=== PATIENT | male | born 1945 | race Caucasian/White ===

== ENCOUNTER 2019-12-07 14:56 | Observation (INO) | payer OTHER, SELFPAY ==
[2019-12-07] VITALS (8 sets, daily range): BP systolic 73–144; BP diastolic 55–87; PULSE 60–75; RESP 16–20; TEMP 36.4–36.6; O2SAT 96–100; BMI 21.9
--- NOTE | ~2019-12-07 | CT_ITS ---
EXAMINATION: CT brain wo con EXAM DATE: 12/07/2019 15:34 INDICATION: Head injury. TECHNIQUE: Spiral CT of the head was performed without contrast. Axial, coronal and sagittal images were reviewed. The dose-length product (DLP) for this examination was 681.00 mGy-cm. The exposure w as tailored according to patient size, and iterative reconstruction (ASIR) was used as additional dos e reduction technique. Comparison is made to prior examination from 07/29/2019. FINDINGS: There is no acute intraparenchymal hemorrhage. No evidence of intraparenchymal brain mass lesion. No evidence of acute infarction. Please note that initial head CT has limited sensitivity f or small or acute infarctions. There is mild periventricular and subcortical hypodensity, nonspecific but probably related to small vessel ischemic disease. There is prominence of the sulci and ventri cles related to cerebral atrophy. There is intracranial carotid arteriosclerosis. There are no ext ra-axial collections. There is no mass effect or midline shift. Patient has had bilateral ocular le ns surgery. Small left posterior scalp contusion. The visualized sinuses and mastoid air cells are w ell aerated. IMPRESSION: 1. No acute intracranial findings. 2. Chronic age related findings. 3. Small left posterior scalp contusion. Reviewed, dictated and finalized at location A. E STOCKER
--- NOTE | 2019-12-07 15:09 | ED.WEAKNESS ---
HPI - Weakness General Chief complaint: Weakness Stated complaint: ?dehydration Time Seen by Provider: 12/07/19 15:05 Source: patient, family and RN notes reviewed Mode of arrival: other Limitations: no limitations History of Present Illness HPI Narrative: Pt is a 74 y/o male who presents to the ED with c/o generalized weakness that began a few weeks ago after his bladder resection. Pt's surgery was done by Dr. Garcia. Pt has been following up with his PCP and Dr. Garcia. He has another follow up appointment with Dr. Garcia on Friday (12/10/19). Per pt's family, pt has not been eating or drinking regularly. Pt's home nurse believes the pt is dehydrated. Pt states that he cannot eat what he cannot taste. He states that food tastes like a cotton ball. He notes that he can swallow 2-3 bites before he vomits. Pt's daughter states the pt goes back and forth to his recliner and the couch. Pt fell yesterday and hit his head. He landed on his right side. Pt reports ROBLES, but denies a fever. Pt takes ASA 81 mg daily. Complaint: generalized weakness Onset (ago): week(s) (few) Duration: constant Location: generalized Associated symptoms: nausea/vomiting, shortness of breath (on exertion) and other (decreased intake) Related Data Home Medications Medication Instructions Recorded Confirmed carvedilol 25 mg PO BID 08/30/19 12/07/19 gabapentin 300 mg capsule 300 mg PO DAILY cap 08/31/19 12/07/19 aspirin [Aspir-81] 81 mg PO DAILY 09/24/19 12/07/19 furosemide [Lasix] 20 mg PO DAILY@1200 12/07/19 12/07/19 Allergies Allergy/AdvReac Type Severity Reaction Status Date / Time No Known Allergies Allergy Unknown Verified 12/07/19 15:14 Review of Systems Review of Systems: All systems reviewed & are unremarkable except as noted in HPI and below Constitutional: Constitutional: Denies fever(s) and Reports other (decreased intake) Respiratory: Respiratory: Reports dyspnea (on exertion) Gastrointestinal: Gastrointestinal: Reports vomiting Neurologic: Reports weakness (generalized) PMFSH Past Medical History Medical History Bladder mass CHF (congestive heart failure) Depression DVT prophylaxis Essential hypertension H/O subarachnoid hemorrhage Hernia History of lymphoma HTN (hypertension) with goal to be determined Hypertension Hyponatremia Malignant neoplasm of overlapping sites of bladder Postoperative ileus Rib fracture Subarachnoid hemorrhage Tobacco use Surgical History Surgical History (Updated 12/07/19 @ 15:20 by Cece Vega) History of bladder surgery resection S/P robot-assisted surgical procedure Social History Social History Smoking packs per day: 1 Smoking cigarettes per day: 20.0 Years smoked: 19 Smoking pack-years: 19.00 Smoking status: Current every day smoker Tobacco type: cigarettes Second hand tobacco smoke exposure: Yes Alcohol intake: unknown Drinks per week: 35 Substance use: never Gender identity (if verbalized by the patient): Male Spiritual care concerns: No Agree to blood products: Yes Exam Narrative: Exam Narrative: GENERAL: well-nourished, and in no acute distress. HEAD: Normocephalic, posterior scalp hematoma EYES: PERRLA and EOMI, conjunctiva clear without discharge THROAT:Mucous membranes moist, NECK: Supple, without lymphadenopathy or mass RESPIRATORY: No respiratory distress, Airway patent, Respirations non-labored, Clear to auscultation without rales, rhonchi or wheeze HEART: Regular rate and rhythm. No murmur heard. Normal peripheral pulses. ABDOMEN: Soft, nontender, nondistended, normal active bowel sounds. No masses. No rebound or guarding, No organomegaly.right lower abdomen urostomy bag with clear urine EXTREMITIES: No edema, normal strength with full range of motion. SKIN: Warm, dry, normal color without rash NEURO: Alert and oriented x3. CN 2-12 grossly intact. No focal
--- NOTE | 2019-12-07 15:19 | ECG_ITS ---
Measurements Intervals [place] Rate: 61 P: 46 [place]: 185 QRS: -61 QRSD: 173 T: 7 QT: 466 QTc: 470 Interpretive Statements SINUS RHYTHM RIGHT BUNDLE BRANCH BLOCK LEFT ANTERIOR FASCICULAR BLOCK VOLTAGE CRITERIA FOR LVH ABNORMAL ECG Electronically Signed On 12-07-2019 16:07:25 BEVELING MACHINE OPERATOR by Ronen Damico D.O.
[2019-12-07] MEDS: LACTATED RINGERS 1,000 ML 999 ML IV CONT ×2 (15:42→16:49)
[2019-12-07 15:59] LABS: Basophils Percent Auto 0.5 % (0.2-1.2); Eosinophils Absolute Auto 0.1 K/mm3 (0-0.3); Eosinophils Percent Auto 1.2 % (0-4.4); Hematocrit 34.9 % (42.0-52.0); Hemoglobin 11.8 g/dL (14.0-18.0); Immature Granulocyte Absolute 0.07 K/mm3 (0.00-0.031); Immature Granulocyte Percent A 0.9 % (0-0.5); Lymphocytes Absolute Auto 0.65 K/mm3 (0.9-3.2); Lymphocytes Percent Auto 7.9 % (18.3-44.2); Mean Corpuscular HGB Conc 33.8 g/dl (32-36); Mean Corpuscular Hemoglobin 31.7 pg (26-34); Mean Corpuscular Volume 93.8 fl (80-100); Mean Platelet Volume 9.7 fl (7.4-10.4); Monocytes Absolute Auto 0.6 K/mm3 (0.1-0.6); Monocytes Percent Auto 7.8 % (2.6-8.5); Neutrophils Absolute Auto 6.7 K/mm3 (1.3-6.7); Neutrophils Percent Auto 81.7 % (45.5-73.1); Platelet Count Result 309 k/mm3 (150-375); Red Blood Count 3.72 M/mm3 (4.6-6.20); Red Cell Distribution Width 14.1 % (11.5-14.5); White Blood Count 8.2 K/mm3 (4.5-10.0)
[2019-12-07 16:01] LABS: Alanine Aminotransferase 17 U/L (4-50); Albumin Level 2.9 g/dL (3.5-5.1); Alkaline Phosphatase 75 U/L (38-126); Aspartate Amino Transferase 22 U/L (17-59); Bilirubin,Total 0.4 mg/dL (0.2-1.3); Blood Urea Nitrogen 23 mg/dL (9-20); Calcium 8.7 mg/dL (8.4-10.2); Carbon Dioxide 23 mmol/L (22-30); Chloride 90 mmol/L (98-107); Estimated CRCL calculation 46 ml/min; Estimated Glomerular Filt Rate 46; Glucose 134 mg/dL (75-110); Magnesium 2.1 mg/dL (1.6-2.3); Potassium 4.3 mmol/L (3.4-5.0); Sodium 127 mmol/L (137-145)
[2019-12-07 16:06] LABS: INR 0.9; Prothrombin Time 12.3 Seconds (11.1-14.7)
[2019-12-07 16:07] LABS: Partial Thromboplastin Time 29.6 SECONDS (22.3-36.8)
--- NOTE | 2019-12-07 16:29 | PC.NURSE ---
Pt states he has had several falls over the last few weeks. Pt states he has had brain bleed a few months ago. Pt states he has had staggering with walking periodically. Pt states 10/07 had prostate removed. Pt states he has had general weakness and dizziness over last two weeks.
--- NOTE | 2019-12-07 18:58 | ADMGEN ---
This patient, Duane Mayo, was admitted to Medical Room 253-01. Patient/family oriented to hospital policies and general routines including ID bracelet, bed and alarms, visiting hours, pain management, procedures, bathroom and other care routines, personal items, smoking policy, room service/diet, and visiting hours. Valuables list has been completed. Information on how to activate the Rapid Response Team has been discussed. Patient/Family are encouraged to report perceived risks to care and to ask questions if they do not understand what they are told or what they should do.
[2019-12-07] MEDS: SODIUM CHLORIDE 0.9% IV 1,000 ML 125 ML IV CONT (19:19)
[2019-12-07] MEDS: PANTOPRAZOLE SODIUM IV 40 MG VIAL IV PUSH (19:20)
[2019-12-08] VITALS (12 sets, daily range): BP systolic 105–143; BP diastolic 72–85; PULSE 66–82; RESP 16–20; TEMP 36.4–37.2; O2SAT 96–99; BMI 21.9
[2019-12-08] MEDS: SODIUM CHLORIDE 0.9% IV 1,000 ML 125 ML IV CONT ×3 (03:56→22:52)
[2019-12-08 05:50] LABS: Alanine Aminotransferase 15 U/L (4-50); Albumin Level 2.3 g/dL (3.5-5.1); Alkaline Phosphatase 68 U/L (38-126); Aspartate Amino Transferase 21 U/L (17-59); Bilirubin,Total 0.3 mg/dL (0.2-1.3); Blood Urea Nitrogen 19 mg/dL (9-20); Calcium 7.9 mg/dL (8.4-10.2); Carbon Dioxide 21 mmol/L (22-30); Chloride 98 mmol/L (98-107); Estimated CRCL calculation 58 ml/min; Estimated Glomerular Filt Rate 59; Glucose 92 mg/dL (75-110); Potassium 4.1 mmol/L (3.4-5.0); Sodium 127 mmol/L (137-145)
[2019-12-08 06:02] LABS: Basophils Percent Auto 0.5 % (0.2-1.2); Eosinophils Absolute Auto 0.2 K/mm3 (0-0.3); Eosinophils Percent Auto 2.6 % (0-4.4); Hematocrit 28.4 % (42.0-52.0); Hemoglobin 9.9 g/dL (14.0-18.0); Immature Granulocyte Absolute 0.07 K/mm3 (0.00-0.031); Immature Granulocyte Percent A 1.1 % (0-0.5); Lymphocytes Absolute Auto 1.12 K/mm3 (0.9-3.2); Lymphocytes Percent Auto 17.2 % (18.3-44.2); Mean Corpuscular HGB Conc 34.9 g/dl (32-36); Mean Corpuscular Hemoglobin 31.6 pg (26-34); Mean Corpuscular Volume 90.7 fl (80-100); Mean Platelet Volume 9.7 fl (7.4-10.4); Monocytes Absolute Auto 0.9 K/mm3 (0.1-0.6); Monocytes Percent Auto 13.2 % (2.6-8.5); Neutrophils Absolute Auto 4.3 K/mm3 (1.3-6.7); Neutrophils Percent Auto 65.4 % (45.5-73.1); Platelet Count Result 273 k/mm3 (150-375); Red Blood Count 3.13 M/mm3 (4.6-6.20); Red Cell Distribution Width 14.1 % (11.5-14.5); White Blood Count 6.5 K/mm3 (4.5-10.0)
[2019-12-08] MEDS: PANTOPRAZOLE SODIUM IV 40 MG VIAL IV PUSH (08:14)
--- NOTE | 2019-12-08 13:28 | PC.NURSE ---
Talked to Dr. Diez about home medications not being restarted. She stated she would take a look at them. Also received orders for PT/OT.
--- NOTE | 2019-12-08 15:34 | PC.NURSE ---
On 12/08/19, the superintendent marine Chalo Carty, provided care and completed [facility] documentation on this patient. I have reviewed the student's documentation and agree with the findings.
[2019-12-08] MEDS: carvediloL 25 MG TABLET PO (16:38)
[2019-12-08] MEDS: SACUBITRIL/VALSARTAN 49-51 MG TABLET 1 TABLET PO (20:59)
[2019-12-09] VITALS (8 sets, daily range): BP systolic 108–136; BP diastolic 70–80; PULSE 54–72; RESP 16; TEMP 36.4; O2SAT 98
--- NOTE | 2019-12-09 06:18 | HP_ITS ---
DATE OF SERVICE: 12/08/2019 REASON FOR ADMISSION: Patient admitted with weakness and dehydration. HISTORY OF PRESENT ILLNESS: This 74-year-old male recently had a bladder resection for invasive bladder cancer under Dr. Garcia' robotic surgery. The patient was seen by primary care and had his Lasix decreased. The patient was complaining of dizziness on standing. The patient has a history of congestive heart failure, lymphoma, invasive bladder cancer, hypertension. The patient states he has been unwell with poor appetite for months, eating Ensure and ice cream, not been eating much recently in the past few days. Friday, Friday completely fasting. Patient notes when he stood up he felt dizzy suddenly. The patient denies any abdominal pain, vomiting, diarrhea, any fever or cough. The patient states he feels nauseated and has lost his appetite. Patient had gone to his primary care doctor, Dr. Brooks, recently for a followup after his robotic surgery and bladder resection. The patient was advised to cut back to half his Lasix dosing. PAST MEDICAL HISTORY: Bladder mass with invasive bladder cancer, congestive heart failure, depression, hypertension, subarachnoid hemorrhage, lymphoma, hyponatremia, postoperative ileus, rib fractures, subarachnoid hemorrhage, and tobacco use. REVIEW OF SYSTEMS: Patient looks quite depressed. The patient looks dry, weak malaise, tired, generally weak. The patient also has some dizziness on standing. All other systems are negative apart from those documented in HPI. PAST SURGICAL HISTORY: Patient has a history of bladder surgery resection, robotic surgery. SOCIAL HISTORY: Patient lives in [place], has 3 children who visit seldom. The patient is a smoker, 1 pack a day. Patient drinks occasionally. The patient appears somewhat depressed. The patient is a full code. FAMILY HISTORY: Mother had emphysema and stroke. Father had COPD. MEDICATIONS ON ADMISSION: Patient is on Lasix 20 p.o. daily, aspirin 81 p.o. daily, Coreg 25 p.o. b.i.d., duloxetine 60 p.o. daily, gabapentin 300 p.o. daily, Crestor 49/51 one tablet p.o. b.i.d., and senna 8.6 mg p.o. daily. ALLERGIES: THE PATIENT HAS NO KNOWN ALLERGIES. PHYSICAL EXAMINATION: VITAL SIGNS: Temperature is 36.5, pulse 69, respirations 16, blood pressure 143/85, heart rate 69. GENERAL: Patient is an elderly man, thin-appearing, dry-appearing. HEENT: Head, patient has a posterior hematoma. Eyes are PERRLA. Tongue is dry. NECK: Supple. RESPIRATIONS: The patient has no wheeze heard. HEART: Sounds are normal rate and rhythm. ABDOMEN: Soft, nontender. EXTREMITIES: Patient is able to move all his limbs, but is very weak and tired appearing. SKIN: Dry. NEUROLOGICAL: Alert and oriented, holding conversation. No focal deficits. PSYCHIATRIC: The patient appears depressed. LABORATORY DATA: Hemoglobin and hematocrit 11.8 and 34.9, white cell 8.2, platelets 309. Sodium 127, potassium 4.3, BUN 23, creatinine 1.5, glucose 134. IMAGING: CT shows a left posterior scalp contusion, but no intracranial findings. EKG shows normal sinus rhythm with right bundle branch and left axis deviation. ASSESSMENT AND PLAN: 1. Orthostatic hypotension. 2. Dehydration and weakness. 3. Hyponatremia. 4. History of lymphoma. 5. History of invasive bladder cancer with recent resection. 6. Weight loss and loss of appetite. 7. Tobacco abuse. PLAN: Continue IV hydration. Hold Lasix. Continue Crestor and Coreg. Start IV Zofran, IV Protonix. Order orthostatic blood pressures on the patient. Patient to also have physical therapy while in the hospital. I have ordered Megace for the patient as I feel that the patient is not eating due to lack of appetite and may be s
[2019-12-09] MEDS: SODIUM CHLORIDE 0.9% IV 1,000 ML 125 ML IV CONT (06:38)
[2019-12-09] MEDS: ASPIRIN 81 MG ENTERIC TABLET PO (09:53)
[2019-12-09] MEDS: PANTOPRAZOLE SODIUM IV 40 MG VIAL IV PUSH (09:54)
[2019-12-09] MEDS: GABAPENTIN 300 MG CAPSULE PO (09:54)
[2019-12-09] MEDS: DULOXETINE 60 MG CAPSULE.DR PO (09:54)
[2019-12-09] MEDS: SACUBITRIL/VALSARTAN 49-51 MG TABLET 1 TABLET PO (09:54)
[2019-12-09] MEDS: MEGESTROL ACETATE (*CHEMO) 20 MG TABLET PO (09:54)
[2019-12-09] MEDS: carvediloL 25 MG TABLET PO (09:57)
--- NOTE | 2019-12-09 11:29 | PM.DS ---
DS: Diagnosis Discharge Diagnosis (1) Orthostatic hypotension: Code(s): I95.1 - Orthostatic hypotension Status: Resolved Assessment and Plan: 4-year-old male recently had a bladder resection for invasive bladder cancer under Dr. Garcia' robotic surgery. The patient was seen by primary care and had his Lasix decreased. The patient was complaining of dizziness on standing. The patient has a history of congestive heart failure, lymphoma, invasive bladder cancer, hypertension. Pt was hydrated with iv fluids. Orthostatics were corrected in hospital. Lasix was completely stopped. (2) Acute dehydration: Code(s): E86.0 - Dehydration Status: Resolved (3) CHF (congestive heart failure): Qualifiers: Heart failure type: systolic Heart failure chronicity: chronic Qualified Code(s): I50.22 - Chronic systolic (congestive) heart failure Code(s): I50.9 - Heart failure, unspecified Status: Chronic Assessment and Plan: Chronic and stable pt restarted on all the home medications, lasix was stopped on discharge. Pt to follow with his PCP on discharge. (4) Malignant neoplasm of overlapping sites of bladder: Code(s): C67.8 - Malignant neoplasm of overlapping sites of bladder Status: Resolved Assessment and Plan: Pt had recent robotic assisted bladder resection for invasive bladder cancer, feels depressed after this not been eating or drinking much at home. Megace was started in the hospital. (5) HTN (hypertension) with goal to be determined: Code(s): I10 - Essential (primary) hypertension Status: Chronic Assessment and Plan: Pt restated on his home medications (6) Depression: Qualifiers: Depression Type: major depressive disorder Major depression recurrence: unspecified whether recurrent Active/Remission status: remission status unspecified Qualified Code(s): F32.9 - Major depressive disorder, single episode, unspecified Code(s): F32.9 - Major depressive disorder, single episode, unspecified Status: Chronic Assessment and Plan: Pt had recent robotic assisted bladder resection for invasive blader cancer, feels depressed after this not been eating or drinking much. I have started megace for him. (7) Tobacco use: Code(s): Z72.0 - Tobacco use Status: Acute Assessment and Plan: Adviced to quit smoking. Pt smokes one pack a day. Pt yet to decide about quitting. DS: Summary Time Spent with Patient Time attestation: Total time spent providing and/or coordinating discharge services:40 minutes on day of discharge Exam Narrative: Exam Narrative: GENERAL: Patient is an elderly man, thin-appearing. HEENT: Head, patient has a posterior hematoma. Eyes are PERRLA. Tongue is moist now. NECK: Supple. RESPIRATIONS: The patient has no wheeze heard. HEART: Sounds are normal rate and rhythm. ABDOMEN: Soft, nontender. EXTREMITIES: Patient is able to move all his limbs, but is very weak and tired appearing. SKIN: Dry. NEUROLOGICAL: Alert and oriented, holding conversation. No focal deficits. PSYCHIATRIC: The patient appears depressed. Discharge Plan Discharge Attending physician on discharge: Angelina Diez Discharging Clinician: Angelina Diez Anticipated Discharge Date/Time: 12/09/19 11:43 Patient Disposition: Home, Self-Care Activity: as tolerated Diet: heart healthy Patient Instructions: Antibiotic Form, How to Stop Smoking (DC) Stand Alone Forms: General Discharge Information Follow-up/Referrals: Jamey Brooks MD [Primary Care Provider] - Discharge Medications: New megestrol 20 mg Tablet 20 mg PO QAM Qty: 30 RF: 0 Continued sacubitril-valsartan 49-51 mg tablet 1 tablet PO BID Qty: 180 RF: 1 sennosides [senna] 8.6 mg tablet 8.6 mg PO DAILY Qty: 1 RF: 0 duloxetine 60 mg capsule,delayed release(DR/EC) 60 mg PO DAILY Qty: 90 RF:
== END 2019-12-09 14:09 | disposition home health service (06) ==
LOC: ANHED 15:30 → ANH2MED 17:11
PROVIDERS: Admitting Provider Internal Medicine; Emergency Provider General Practice; PCP Internal Medicine; Visit Provider Family Medicine
DX: E86.0 Dehydration (principal); I95.1 Orthostatic hypotension; E87.1 Hypo-osmolality and hyponatremia; I11.0 Hypertensive heart disease with heart failure; I50.22 Chronic systolic (congestive) heart failure; C67.8 Malignant neoplasm of overlapping sites of bladder; F32.9 Major depressive disorder, single episode, unspecified; F17.210 Nicotine dependence, cigarettes, uncomplicated; R63.4 Abnormal weight loss; Z68.21 Body mass index [BMI] 21.0-21.9, adult; R63.0 Anorexia; Z79.899 Other long term (current) drug therapy; Z85.72 Personal history of non-Hodgkin lymphomas
CPT/HCPCS: 36415; 70450; 80053; 83735; 85025; 85610; 85730; 93005; 96361; 96374; 96376; 97162; 97165; 99291; A9270; C9113; G0378; J7030; J7120

== ENCOUNTER 2019-12-26 21:45 | Inpatient (IN) | payer OTHER, SELFPAY ==
--- NOTE | ~2019-12-26 | CT_ITS ---
EXAMINATION: CT abdomen pelvis w con DATE: 12/26/2019 23:02 INDICATION: Nausea, vomiting, diarrhea TECHNIQUE: Computed tomography (CT) of the abdomen and pelvis was performed with 100 cc Omnipaque 350 intravenous contrast. Automated exposure control and iterative reconstruction technique were employe d. Exam dose: 479.47 mGy-cm total exam DLP. COMPARISON: 09/17/2019 CT abdomen pelvis FINDINGS: The lung bases are clear. Normal heart size. No pericardial or pleural effusion. There are multiple hepatic cysts including almost 10 cm cyst of the left hepatic lobe. There are bilateral renal cysts, the largest approximately 2.7 cm, on the left. Bilateral renal scarr ing is noted. Normal splenic size. No solid space-occupying mass lesion of the liver, spleen, pancreas, adrenal gla nds or kidneys is evident. The gallbladder is present and appears unremarkable. No bile duct or pancr eatic duct dilatation. There is atherosclerotic calcification of the abdominal and aorta and iliac and femoral arteries but no aneurysm. No intraperitoneal or retroperitoneal or pelvic mass lesion or adenopathy or ascites. There is small bowel dilatation up to 5.1 cm and numerous small bowel air-fluid levels consistent wit h small bowel obstruction in the region of the urostomy site, possibly due to internal hernia or volv ulus in the medial right mid abdomen. Distal small bowel is decompressed. There is cystectomy and prostatectomy. There is minimal pelvic free fluid. Small sliding hiatal hernia or distal esophageal wall thickening; consider upper gastrointestinal ser ies as clinically appropriate. Healing anterior sixth and seventh right rib fractures There is patchy sclerosis of L2 vertebral body which may be due to metastatic disease; Paget's diseas e is considered less likely due to absence of cortical thickening. Mixed lytic and sclerotic changes of the right iliac bone noted; differential diagnosis includes meta static disease and Paget's disease. IMPRESSION: Small bowel obstruction Status post cystectomy and prostatectomy Hepatic and renal cysts Reviewed, dictated and finalized at Location [facility]. Reviewed, dictated and finalized at location B.
--- NOTE | ~2019-12-26 | XR_ITS ---
XR abdomen/kub 1V DATE: 12/29/2019 05:51 INDICATION: Small bowel obstruction TECHNIQUE: Portable supine AP views on 12/29/2019 at 0544 hours COMPARISON: 12/28/2019 upper gastrointestinal water soluble series with small bowel follow-through FINDINGS: Radiopaque contrast material is noted in the colon and rectum. There is persistent small kenn wel gaseous dilatation. No intraperitoneal free air is evident. IMPRESSION: Persistent abnormal gaseous dilatation of the small bowel suggesting partial small bowel obstruction Reviewed, dictated and finalized at Location [facility]. Reviewed, dictated and finalized at location A. IMPRESSION: Persistent abnormal gaseous dilatation of the small bowel suggestin g partial small bowel obstruction
--- NOTE | ~2019-12-26 | XR_ITS ---
XR abdomen/kub 1V 12/28/2019 06:00 Indication: Small bowel obstruction Procedure: KUB Comparison: 12/27/2019 Findings: NG tube in the stomach. Dilated small bowel is seen throughout the abdomen. There is modera te gas in the colon. No abnormal calcifications. Impression: 1: Large amount of gas throughout the small bowel and colon which may represent partial obstruction o r ileus. Reviewed, dictated and finalized at location A. Impression: 1: Large amount of gas throughout the small bowel and colon which may represent partial obstruction or ileus.
--- NOTE | ~2019-12-26 | XR_ITS ---
XR abdomen/kub 1V DATE: 12/30/2019 06:19 INDICATION: Small bowel obstruction TECHNIQUE: Portable supine AP views on 12/30/2019 at 0535 hours COMPARISON: 12/25/2019 KUB FINDINGS: There is diminished contrast material in the rectum and colon since 12/29/2019. There is per sistent gaseous distention of the small bowel. The psoas shadows are intact. No visceromegaly is evid ent. IMPRESSION: Persistent small bowel gaseous distention suggesting small bowel obstruction Reviewed, dictated and finalized at Location [facility]. Reviewed, dictated and finalized at location A. IMPRESSION: Persistent small bowel gaseous distention suggesting small bowel ob struction
--- NOTE | ~2019-12-26 | XR_ITS ---
XR abdomen/kub 1V 12/27/2019 08:03 Indication: Small bowel obstruction versus ileus Procedure: KUB Comparison: Comparison to multiple prior studies sequentially, with oldest reviewed study dated 09/20. Findings: There are multiple dilated small bowel loops throughout the abdomen. The colon is relativel y decompressed. There is residual contrast in the right renal collecting system. There is an ostomy o verlying the right mid abdomen. NG tube in the stomach. Impression: 1: Dilated small bowel compatible with small bowel obstruction. Reviewed, dictated and finalized at location A. Impression: 1: Dilated small bowel compatible with small bowel obstruction.
--- NOTE | ~2019-12-26 | XR_ITS ---
EXAMINATION: XR abdomen NG/feed tube rechec EXAM DATE: 12/27/2019 17:46 INDICATION: Feeding tube placement. TECHNIQUE: Frontal projection(s) of the abdomen for interpretation. Comparison is made to prior exami nation from earlier same date. FINDINGS: Feeding tube has been advanced, now has some tortuosity along the esophagus and mild kinki ng distally. Stomach is likely decompressed. IMPRESSION: 1. Feeding tube under some tension, with mild kinking, tip and side-port both likely within decompres sed stomach. 2. Mesenteric volvulus, closed loop obstruction. Reviewed, dictated and finalized at location A. IMPRESSION: 1. Feeding tube under some tension, with mild kinking, tip and side-port both l ikely within decompressed stomach. 2. Mesenteric volvulus, closed loop obstruction.
--- NOTE | ~2019-12-26 | XR_ITS ---
XR abdomen NG/feed tube insert INDICATION: Evaluate NG tube position. TECHNIQUE: Limited KUB perform for evaluating NG tube . COMPARISON: Comparison to multiple prior studies sequentially, with oldest reviewed study dated 09/19. FINDINGS: NG tube tip in the stomach. Visualized bowel gas pattern is nonspecific with large amount of gas in the small bowel and colon in the upper abdomen.. IMPRESSION: 1: NG tube tip in the stomach. Reviewed, dictated and finalized at location A.
--- NOTE | ~2019-12-26 | XR_ITS ---
UGI-AIR CONTRAST/SMALL BOWEL INDICATION: Small bowel obstruction TECHNIQUE: Serial images of the upper GI tract structures and small bowel are performed following NG tube administration of water-soluble contrast. COMPARISON: CT dated 12/26/2019 FINDINGS: Contrast flowed readily into the stomach via NG tube. Gastric contour, mucosa and motility are normal. The duodenal bulb fills and empties regularly and has a normal mucosal pattern. The duo denal sweep is in normal position. There are multiple dilated loops of small bowel with thickening of small bowel mucosal folds in the proximal small bowel. There is transit time to the colon of less th an 1 1/2 hours. There is decompression of the distal small bowel at the ileocecal junction. The more proximal small bowel is dilated. IMPRESSION: 1: Dilated small bowel with decompressed distal small bowel. Normal transit time to the colon of less than 1 hour 30 minutes. Differential diagnosis includes partial obstruction and ileus. No definite t ransition point is identified. Reviewed, dictated and finalized at location A. IMPRESSION: 1: Dilated small bowel with decompressed distal small bowel. Normal transit fern e to the colon of less than 1 hour 30 minutes. Differential diagnosis includes partial obstruction and ileus. No definite transition point is identified.
[2019-12-26 22:04] VITALS: BP 115/89; PULSE 107; RESP 20; TEMP 36.4; O2SAT 96
--- NOTE | 2019-12-26 22:12 | ECG_ITS ---
Measurements Intervals [place] Rate: 98 P: 56 [place]: 183 QRS: -76 QRSD: 173 T: 33 QT: 409 QTc: 524 Interpretive Statements SINUS RHYTHM RIGHT BUNDLE BRANCH BLOCK LEFT ANTERIOR FASCICULAR BLOCK VOLTAGE CRITERIA FOR LVH ABNORMAL ECG Electronically Signed On 12-27-2019 7:07:26 CDT by Ronen Damico D.O.
--- NOTE | 2019-12-26 22:26 | ED.GENADULT ---
HPI - General Adult General Chief complaint: Abdominal Pain Stated complaint: n/v Time Seen by Provider: 12/26/19 22:11 Source: patient and family Mode of arrival: wheelchair Limitations: no limitations History of Present Illness HPI narrative: Patient presented to the emergency department for evaluation of abdominal pain, vomiting and weakness. Patient reports that since his bladder removal surgery a couple weeks ago in this hospital, he has had minimal oral intake since being at home, has experienced a lot of weakness and difficulty ambulating. Patient denies any focal numbness, reports he feels weak all over. His daughter reports that he is not laying in bed up to 23 hours a day with very little independent ambulation. Patient reports waves of colicky abdominal pain that come and go. He denies fever, cough, no shortness of breath or chest pain. He reports that he had a bowel movement today, no diarrhea. He reports that his urostomy bag has been draining appropriately without blood. Per family, patient was not referred to any specific oncologist, Dr. Garcia had stated that the patient may want to consult with oncology, but at this point he is on any chemotherapy or radiation treatment. Related Data Home Medications Medication Instructions Recorded Confirmed carvedilol 25 mg PO BID 08/30/19 12/07/19 gabapentin 300 mg capsule 300 mg PO DAILY cap 08/31/19 12/07/19 aspirin [Aspir-81] 81 mg PO DAILY 09/24/19 12/07/19 Allergies Allergy/AdvReac Type Severity Reaction Status Date / Time No Known Allergies Allergy Unknown Verified 12/07/19 15:14 Review of Systems Review of Systems: Narrative: CONSTITUTIONAL: Denies fever, chills, or sweats. ENT: Denies rhinorrhea, congestion, sore throat, or otalgia. CARDIOVASCULAR: Denies chest pain, palpitations, or edema. RESPIRATORY: Denies cough or dyspnea. GASTROINTESTINAL: Reports abdominal pain, nausea, vomiting, denies diarrhea GENITOURINARY: Denies dysuria or hematuria. SKIN: Denies rash or itching. MUSCULOSKELETAL: Denies back pain, joint pain, or myalgia. NEUROLOGIC: Denies headache, numbness, reports feeling weak PMFSH Past Medical History Medical History Bladder mass CHF (congestive heart failure) Depression DVT prophylaxis Essential hypertension H/O subarachnoid hemorrhage Hernia History of lymphoma HTN (hypertension) with goal to be determined Hypertension Hyponatremia Malignant neoplasm of overlapping sites of bladder Postoperative ileus Rib fracture Subarachnoid hemorrhage Tobacco use Surgical History Surgical History History of bladder surgery resection S/P robot-assisted surgical procedure Family History Family History Father Family history of malignant neoplasm Patient's father is Mother Family history of malignant neoplasm Patient's mother is Social History Social History Smoking packs per day: 1 Smoking cigarettes per day: 20.0 Years smoked: 19 Smoking pack-years: 19.00 Smoking status: Current every day smoker Tobacco type: cigarettes Second hand tobacco smoke exposure: Yes Alcohol intake: unknown Drinks per week: 35 Substance use: never Gender identity (if verbalized by the patient): Male Spiritual care concerns: No Agree to blood products: Yes Exam Narrative: Exam Narrative: GENERAL: Awake, alert, conversant, thin HEAD: Normocephalic, atraumatic. EYES: PERRLA and EOMI. ENT: Nares clear, no rhinorrhea or epistaxis. Mucous membranes dry NECK: Supple. CHEST: Clear to auscultation. No respiratory distress. HEART: Mildly tachycardic rate and regular rhythm. No murmur heard. Normal peripheral pulses. ABDOMEN: Urostomy in place, draining yellow urine. Soft, nontender, nondistended, normal active bowel sounds.
[2019-12-26 22:42] LABS: Basophils Percent Auto 0.4 % (0.2-1.2); Eosinophils Absolute Auto 0.1 K/mm3 (0-0.3); Eosinophils Percent Auto 1.2 % (0-4.4); Hematocrit 39.7 % (42.0-52.0); Hemoglobin 13.1 g/dL (14.0-18.0); Immature Granulocyte Absolute 0.06 K/mm3 (0.00-0.031); Immature Granulocyte Percent A 0.6 % (0-0.5); Lymphocytes Percent Auto 16.5 % (18.3-44.2); Mean Corpuscular Hemoglobin 30.2 pg (26-34); Mean Corpuscular Volume 91.5 fl (80-100); Mean Platelet Volume 9.2 fl (7.4-10.4); Monocytes Absolute Auto 0.6 K/mm3 (0.1-0.6); Monocytes Percent Auto 6.1 % (2.6-8.5); Neutrophils Absolute Auto 7.3 K/mm3 (1.3-6.7); Neutrophils Percent Auto 75.2 % (45.5-73.1); Platelet Count Result 572 k/mm3 (150-375); Red Blood Count 4.34 M/mm3 (4.6-6.20); Red Cell Distribution Width 14.6 % (11.5-14.5); White Blood Count 9.7 K/mm3 (4.5-10.0)
[2019-12-26 22:48] LABS: Add Urine Microscopic? YES; Appearance Urine Cloudy (Clear); Bacteria Urine 4+ /hpf; Bilirubin Urine 2+ (Negative); Blood Urine Negative (Negative); Color Urine Amber (Yellow); Glucose Urine UA Negative (Negative); Ketones Urine Trace mg/dL (Negative); Leukocyte Esterase Ur 2+ LEU/UL (Negative); Mucus Urine Few /lpf; Nitrate Urine Negative (Negative); Protein Urine 2+ mg/dL (Negative); Specific Grav Ur 1.018 (1.001-1.035); Squamous Epithelial Cell Urine Few /hpf (Few); WBC Clumps Urine Present /HPF; WBC Urine >75 /hpf
[2019-12-26 22:52] LABS: INR 0.9; Partial Thromboplastin Time 27.8 SECONDS (22.3-36.8); Prothrombin Time 12.2 Seconds (11.1-14.7)
[2019-12-26 22:53] LABS: Alanine Aminotransferase 21 U/L (4-50); Albumin Level 4.1 g/dL (3.5-5.1); Alkaline Phosphatase 95 U/L (38-126); Aspartate Amino Transferase 22 U/L (17-59); Bilirubin,Total 0.4 mg/dL (0.2-1.3); Blood Urea Nitrogen 28 mg/dL (9-20); Calcium 10.6 mg/dL (8.4-10.2); Carbon Dioxide 21 mmol/L (22-30); Chloride 103 mmol/L (98-107); Estimated Glomerular Filt Rate 31; Glucose 200 mg/dL (75-110); Potassium 5.1 mmol/L (3.4-5.0); Sodium 135 mmol/L (137-145)
[2019-12-26 22:55] LABS: Estimated Glomerular Filt Rate 31
[2019-12-26] MEDS: SODIUM CHLORIDE 0.9% IV 1,000 ML 999 ML IV CONT ×2 (22:58)
[2019-12-26] MEDS: ONDANSETRON INJ 4 MG/2 ML VIAL IV PUSH (22:58)
[2019-12-26 23:05] LABS: Troponin I 0.031 ng/mL (0.000-0.034)
[2019-12-27] VITALS (7 sets, daily range): BP systolic 113–196; BP diastolic 83–96; PULSE 97–108; RESP 16–20; TEMP 36.4–37; O2SAT 95–98; BMI 21.2
[2019-12-27] MEDS: SODIUM CHLORIDE 0.9% IV 1,000 ML 150 ML IV CONT (01:00)
--- NOTE | 2019-12-27 01:31 | ADMGEN ---
This patient, Duane Mayo, was admitted to [facility] Surg Room 332-01. Patient/family oriented to hospital policies and general routines including ID bracelet, bed and alarms, visiting hours, pain management, procedures, bathroom and other care routines, personal items, smoking policy, room service/diet, and visiting hours. Valuables list has been completed. Information on how to activate the Rapid Response Team has been discussed. Patient/Family are encouraged to report perceived risks to care and to ask questions if they do not understand what they are told or what they should do.
--- NOTE | 2019-12-27 04:05 | PM.IMHP ---
H&P: HPI History of Present Illness Chief complaint: Generalized weakness, vomiting Narrative: Date and time of patient contact: 12/27/2019 at 3:30 a.m. Duane Mayo is a loquacious 74 year old male with a past medical history of lymphoma in remission, bladder cancer status post complete cystectomy, and chronic protein calorie malnutrition who presented to the ER from home due to generalized weakness and vomiting. The patient had complete bladder resection/cystectomy September 2019. Ever since his bladder surgery he has had minimal oral intake. He has not had a good appetite since he had lymphoma in 2018. But since his surgery his appetite has continued to decline. He reports that he is usually independent in activities of daily living but over the last 3 or 4 days has become so weak that he cannot get out of bed on his own. He had had a day of vomiting last . The vomiting had seemed to resolve. Then he started vomiting again on Friday evening. The vomiting usually accompanied by colicky abdominal pain. The pain is a 7/10 in intensity at its worst. It is aggravated after having oral intake. Vomiting seems to briefly relieve his pain. Pain seems start in the lower abdomen work its way up towards his urostomy and epigastric area. He has had a chronically poor appetite since his lymphoma diagnosis in 2017. He has been trying to stay hydrated with in sugar and chocolate milk. He reports that food does not taste right. His last bowel movement was on Friday and was normally formed. His urostomy has been draining appropriately. He has been lying in bed for 23 hours a day for the last 2-3 days. He has been getting progressively weaker and is just generally weak all over. He is chronically chilled and keeps the thermostat in his house to 78?. He denies any fevers. The patient has not followed up with Oncology after his bladder resection. He did have 3 lymph nodes that were positive out of 20. Dr. Garcia at told the patient that he he may want to consult with Oncology. However the patient and his family do not feel that the patient would tolerate chemotherapy at this time and half not been referred to a specific oncologist. Review of Systems Review of Systems: Narrative: Except as documented in the HPI, all other systems were reviewed and are negative. PMFSH Past Medical History Medical History Abnormal bone scan of cervical spine CT suggest hemangioma bone scan suggest Paget's disease Abnormal bone scan of lumbar spine 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 CHF (congestive heart failure) Depression Essential hypertension H/O subarachnoid hemorrhage Hearing loss Hernia History of lymphoma Diagnosed in 2018 now in remission Hypertension Hyponatremia 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 Postoperative ileus after bladdder resection Rib fracture September 2019 Tobacco use Surgical History Surgical History (Updated 12/27/19 @ 04:49 by Gisela Benoit DO) H/O total cystectomy robotic assisted bladder resection History of bilateral cataract extraction History of bilateral inguinal hernia repair History of bladder surgery resection History of prostatectomy Hx of tonsillectomy S/P robot-assisted surgical procedure Family History Family History (Updated 12/27/19 @ 04:49 by Gisela Benoit DO) Father Patient's father is Chronic obstructive pulmonary disease Mother Patient's mother is Cerebrovascular accident Hypercholesterolemia Sibling Epiglottitis Social History Social History (Updated 12/27/19 @ 05:16 by Gisela Benoit DO) Social History: Primary care physician: Dr. Jamey Brooks Code status: DNR per patient request Smoking packs per day: 1 Smoking cigarettes per day: 20.0 Years smoked: 19 Smoking pack-years: 19.00 Smoking
--- NOTE | 2019-12-27 08:15 | PM.CNGS ---
Assessment and Plan Assessment and plan (1) SBO (small bowel obstruction): Code(s): K56.609 - Unspecified intestinal obstruction, unspecified as to partial versus complete obstruction Status: Acute Assessment and Plan: seems improved after just a few hours of nasogastric suction. I will recheck his KUB this morning. Continue IV fluid resuscitation due to dehydration and acute kidney injury. If continues to improve, probably get water-soluble upper GI small-bowel follow-through tomorrow. If this is a prolonged illness, patient will need TPN. (2) Protein calorie malnutrition: Code(s): E46 - Unspecified protein-calorie malnutrition Status: Chronic Assessment and Plan: If this is a prolonged illness, patient will need TPN. (3) MANDEEP (acute kidney injury): Code(s): N17.9 - Acute kidney failure, unspecified Status: Acute Assessment and Plan: Receiving fluid resuscitation. (4) Acute dehydration: Code(s): E86.0 - Dehydration Status: Acute Assessment and Plan: Receiving normal saline fluid resuscitation. (5) H/O total cystectomy: Code(s): Z90.6 - Acquired absence of other parts of urinary tract Status: Acute Assessment and Plan: October 07, 2019. (6) Tobacco use: Code(s): Z72.0 - Tobacco use Status: Acute Assessment and Plan: Increases surgical risks. History of Present Illness Consult details Consult date: 12/27/19 Reason for consult: abdominal pain ( Small bowel obstruction) Narrative: Mr. jeremy nina is a 74-year-old gentleman who has a history of lymphoma that is in remission. On October 07, 2019, Dr. Garcia performed Robotic cystoprostatectomy, bilateral pelvic lymphadenectomy, ileal-loop urinary diversion (intracorporal). patient has had trouble with lack of appetite since that surgery. He came to the emergency room last night as he was having crampy recurrent abdominal pain that would come and go as well as vomiting. He was feeling listless with weakness and fatigue. In the emergency room, he was noted to be very dehydrated and CT scan showed evidence of a small-bowel obstruction and possibly internal hernia in the area of the ileal conduit. He had an NG tube placed and was admitted. This morning he feels better. He only had about 150 cc out the NG tube but he says the pain is nearly gone. He has been having output from his ileal conduit. Nausea is much better as well. Admitting labs showed his creatinine to be elevated at 2.1. His he albumin was 4.1. BUN was 28 and potassium 5.1. White blood cell count 9700. Hemoglobin 13.1. KUB from last night was reviewed and shows the NG tube to be in good position but significant dilatation of the small and large bowel. .He is seen now in consultation regarding possible small-bowel obstruction Review of Systems Review of Systems: All systems reviewed & are unremarkable except as noted in HPI and below Constitutional: Constitutional: Denies headache(s) ENT: Denies headache(s) Cardiovascular: Cardiovascular: Denies chest pain and Denies dyspnea Respiratory: Respiratory: Denies cough and Denies dyspnea Gastrointestinal: Gastrointestinal: Reports as per HPI Neurologic: Denies confusion and Denies headache(s) Psychiatric: Psychiatric: Denies confusion PMF Past Medical History Medical History Abnormal bone scan of cervical spine CT suggest hemangioma bone scan suggest Paget's disease Abnormal bone scan of lumbar spine 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 CHF (congestive heart failure) Depression Essential hypertension H/O subarachnoid hemorrhage Hearing loss Hernia History of lymphoma Diagnosed in 2018 now in remission Hypertension Hyponatremia 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 Postoperative ileus after bladdder resection Rib fracture August/Sep
[2019-12-27 09:56] LABS: Hematocrit 33.9 % (42.0-52.0); Hemoglobin 11.4 g/dL (14.0-18.0); Mean Corpuscular HGB Conc 33.6 g/dl (32-36); Mean Corpuscular Hemoglobin 30.8 pg (26-34); Mean Corpuscular Volume 91.6 fl (80-100); Platelet Count Result 495 k/mm3 (150-375); Red Cell Distribution Width 14.6 % (11.5-14.5); White Blood Count 9.1 K/mm3 (4.5-10.0)
[2019-12-27 10:09] LABS: Blood Urea Nitrogen 29 mg/dL (9-20); Calcium 9.3 mg/dL (8.4-10.2); Carbon Dioxide 23 mmol/L (22-30); Chloride 109 mmol/L (98-107); Estimated CRCL calculation 33 ml/min; Estimated Glomerular Filt Rate 31; Glucose 108 mg/dL (75-110); Magnesium 2.4 mg/dL (1.6-2.3); Potassium 4.7 mmol/L (3.4-5.0); Sodium 138 mmol/L (137-145)
--- NOTE | 2019-12-27 11:31 | PCOTNOTE ---
OT evaluation attempted this AM. Patient difficult to wake and lethargic. Declined therapy at this time due to lethargy. Will attempt OT evaluation at later time.
[2019-12-27] MEDS: SODIUM CHLORIDE 0.9% IV 1,000 ML 125 ML IV CONT (14:09)
--- NOTE | 2019-12-27 15:35 | PM.IMPN ---
Progress Note: A&P Assessment and Plan (1) SBO (small bowel obstruction): Code(s): K56.609 - Unspecified intestinal obstruction, unspecified as to partial versus complete obstruction Status: Acute Assessment and Plan: Patient is NPO. NG is present in place to low intermittent wall suction. Patient still has high-pitched bowel sounds in the left lower quadrant and seems distended. He denies pain on palpation of the abdomen but does grimace when the abdomen is palpated. 12/27/19 15:35 Patient is 74-year-old male with a history of lymphoma status post robotic prostatectomy and and lymphadenectomy 2 weeks ago present to emergency department with a complaint abdominal pain vomiting poor appetite weakness patient is found to have a small-bowel obstruction patient is on NG tube, patient denies any nausea or vomiting he does complaint abdominal pain he has not been passing any gas and has not had a BM, patient denies any fever or chills patient seen by general surgery recommended continue present managed patient may need KUB to further evaluate, if patient's symptoms do not improve in next 48 hours will start the patient on TPN (2) Bacteriuria with pyuria: Code(s): R82.71 - Bacteriuria; R82.81 - Pyuria Status: Acute Assessment and Plan: Possible UTI but urine specimen is from a urostomy. The patient is not having fevers and does not have leukocytosis. Will await urine cultures. The patient was placed on empiric antibiotic therapy with Rocephin. Will follow-up on urine culture (3) Protein calorie malnutrition: Code(s): E46 - Unspecified protein-calorie malnutrition Status: Chronic Assessment and Plan: Patient has chronic protein calorie malnutrition. He is overall failure to thrive. He would benefit from some peripheral nutrition. Subjective Date/time seen: 12/27/19 15:35 Patient is 74-year-old male with a history of lymphoma status post robotic prostatectomy and and lymphadenectomy 2 weeks ago present to emergency department with a complaint abdominal pain vomiting poor appetite weakness patient is found to have a small-bowel obstruction patient is on NG tube, patient denies any nausea or vomiting he does complaint abdominal pain he has not been passing any gas and has not had a BM, patient denies any fever or chills Review of Systems Review of Systems: All systems reviewed & are unremarkable except as noted in HPI and below Exam Const: General: comfortable and no acute distress HENMT: General nose exam: Normal nares present Mouth: Yes moist mucous membranes Other: NG tube in place Eyes: General: appearance normal, both eyes and all related structures Sclera: sclerae normal Neck: Neck: supple Resp: Effort & Inspection: normal respiratory effort Auscultation: clear to auscultation bilaterally Cardio: Rate: regular rate Rhythm: regular rhythm GI: Other: Bowel sounds are absent diffusely tender Skin: General skin exam: normal color and no rashes or lesions noted Neuro: Speech: normal speech Sensory Exam: normal sensation Extrem: General: normal to inspection Psych: Affect: Anxious affect present Objective Data Vital Signs Vital Signs: Vital Signs - 24 hr 12/26/19 22:04 12/27/19 00:34 12/27/19 01:15 Temperature 97.5 F L 97.6 F Pulse Rate 107 H 106 H 108 H Respiratory Rate 20 20 18 Blood Pressure 115/89 113/83 131/96 H Pulse Oximetry 96 98 97 12/27/19 06:00 12/27/19 14:00 Temperature 98.6 F 97.7 F Pulse Rate 100 103 H Respiratory Rate 16 18 Blood Pressure 118/85 133/86 Pulse Oximetry 95 98 Intake/Output Intake/Output: Intake & Output 12/24/19 12/25/19 12/26/19 12/27/19 22:59 22:59 23:59 23:59 Intake Total 3394 Output Total 150 Balance 3244 Meds/Results Medications: Active Medications Generic Name Dose Route Start Last Admin Trade Name Freq PRN Reason Stop Dose Admin Acetaminophen 1,000 mg in 100 mls @ 400 mls/
[2019-12-27] MEDS: hydrALAZINE HCL 20 MG/ML VIAL 10 MG IV PUSH (23:21)
[2019-12-27] MEDS: METOPROLOL TARTRATE INJ 5 MG/5 ML VIAL IV PUSH (23:21)
[2019-12-28] VITALS (8 sets, daily range): BP systolic 117–169; BP diastolic 93–97; PULSE 64–110; RESP 16–20; TEMP 36.3–36.7; O2SAT 99–100; BMI 21.2
[2019-12-28] MEDS: METOPROLOL TARTRATE INJ 5 MG/5 ML VIAL IV PUSH ×4 (05:04→21:43)
[2019-12-28 06:30] LABS: Hematocrit 33.3 % (42.0-52.0); Hemoglobin 10.5 g/dL (14.0-18.0); Mean Corpuscular HGB Conc 31.5 g/dl (32-36); Mean Corpuscular Hemoglobin 30.4 pg (26-34); Mean Corpuscular Volume 96.5 fl (80-100); Mean Platelet Volume 9.3 fl (7.4-10.4); Platelet Count Result 456 k/mm3 (150-375); Red Blood Count 3.45 M/mm3 (4.6-6.20); White Blood Count 6.4 K/mm3 (4.5-10.0)
[2019-12-28 06:37] LABS: Blood Urea Nitrogen 30 mg/dL (9-20); Calcium 8.5 mg/dL (8.4-10.2); Carbon Dioxide 20 mmol/L (22-30); Chloride 109 mmol/L (98-107); Estimated CRCL calculation 40 ml/min; Estimated Glomerular Filt Rate 40; Glucose 90 mg/dL (75-110); Magnesium 2.3 mg/dL (1.6-2.3); Potassium 3.6 mmol/L (3.4-5.0); Sodium 138 mmol/L (137-145)
[2019-12-28] MEDS: SODIUM CHLORIDE 0.9% IV 1,000 ML 125 ML IV CONT ×2 (07:32→17:33)
--- NOTE | 2019-12-28 08:50 | PM.PNGS ---
Progress Note: A&P Assessment and Plan (1) SBO (small bowel obstruction): Code(s): K56.609 - Unspecified intestinal obstruction, unspecified as to partial versus complete obstruction Status: Acute Assessment and Plan: pain is gone and patient is now having flatus and bowel movements suggesting this is not a closed loop obstruction. I am aware of the radiologist's interpretation but this does not fit with the clinical picture. Will get a upper GI small-bowel follow-through with water-soluble contrast today. Further plans pending the result of this study. (2) MANDEEP (acute kidney injury): Code(s): N17.9 - Acute kidney failure, unspecified Status: Acute Assessment and Plan: Creatinine down to 1.7. Improving. (3) H/O total cystectomy: Code(s): Z90.6 - Acquired absence of other parts of urinary tract Status: Acute (4) Protein calorie malnutrition: Code(s): E46 - Unspecified protein-calorie malnutrition Status: Chronic (5) Muscular deconditioning: Code(s): R29.898 - Other symptoms and signs involving the musculoskeletal system Status: Acute Subjective Subjective Date/Time Seen: 12/28/19 08:50 Patient reports: feels better, pain is less, flatus, bowel movement and afebrile Review of Systems Review of Systems: All systems reviewed & are unremarkable except as noted in HPI and below Constitutional: Constitutional: Denies headache(s) ENT: Denies headache(s) Cardiovascular: Cardiovascular: Denies chest pain and Denies dyspnea Respiratory: Respiratory: Denies cough and Denies dyspnea Gastrointestinal: Gastrointestinal: Reports as per HPI Neurologic: Denies confusion and Denies headache(s) Psychiatric: Psychiatric: Denies confusion Exam Const: General: comfortable and no acute distress; No confusion Orientation/consciousness: patient oriented x3 and No confusion GI: Inspection: distended and other ( right-sided ileal conduit) GI Palp: Yes Soft to palpation, No Tenderness to palpation present (GI) ( less distended as well), No Guarding due to palpation present (GI) and No Rebound tenderness present Auscultation: Hypoactive bowel sounds present Neuro: General: patient oriented x3, no focal motor deficits and No confusion Extrem: General: no calf tenderness and no edema Psych: Affect: normal affect Insight: Good insight present (Psych) Judgement: Good judgement present (Psych) Objective Data Vital Signs Vital Signs: Vital Signs - 24 hr 12/27/19 14:00 12/27/19 21:59 12/27/19 22:00 Temperature 36.5 C 37.0 C Pulse Rate 103 H 97 97 Respiratory Rate 18 18 Blood Pressure 133/86 196/86 H 196/86 H Pulse Oximetry 98 98 12/27/19 23:21 12/28/19 04:50 12/28/19 05:04 Temperature Pulse Rate 102 H 70 70 Respiratory Rate Blood Pressure 169/93 H Pulse Oximetry 12/28/19 06:00 Temperature 36.7 C Pulse Rate 70 Respiratory Rate 20 Blood Pressure 153/97 H Pulse Oximetry 99 Intake/Output Intake/Output: Intake & Output 12/25/19 12/26/19 12/27/19 12/28/19 22:59 23:59 23:59 23:59 Intake Total 4394 40 Output Total 750 1050 Balance 3644 -1010 Meds/Results Medications: Active Medications Generic Name Dose Route Start Last Admin Trade Name Freq PRN Reason Stop Dose Admin Hydralazine HCl 10 mg 12/27/19 22:00 12/27/19 23:21 Apresoline Hcl Inj IV PUSH 10 mg Q4H PRN Administration SBP greater than 180 Sodium Chloride 1,000 mls @ 125 mls/hr 12/27/19 13:30 12/28/19 07:32 Normal Saline Iv IV CONT 125 mls/hr .Q8H MONICA Administration Metoprolol Tartrate 5 mg 12/27/19 22:00 12/28/19 05:04 Lopressor Inj IV PUSH 5 mg Q6H MONICA Administration Morphine Sulfate 4 mg 12/27/19 00:27 Morphine Sulfate Inj IV PUSH Q2H PRN Pain Rated 7-10 Ondansetron HCl 4 mg 12/27/19 00:27 Zofran Inj IV PUSH Q4H PRN Nausea Radiology Results: ITS Impressions
--- NOTE | 2019-12-28 11:19 | PCPTNOTE ---
Attempted to see patient this AM, patient was out of room for testing, will attempt at a later time.
--- NOTE | 2019-12-28 14:13 | PCPTNOTE ---
PT baltazar attempted this afternoon and patient refused after not sleeping and in pain, will try back tomorrow.
--- NOTE | 2019-12-28 14:35 | PCOTNOTE ---
Attempted to see patient for skilled OT, however, patient just came back from procedure and stated that he hasn't slept in three days and refused to participate in any skilled OT activities at this time. Patient given comfort measures such as ice, heated blankets, etc. Patient not seen for OT this date.
--- NOTE | 2019-12-28 16:39 | PM.IMPN ---
Progress Note: A&P Assessment and Plan (1) SBO (small bowel obstruction): Code(s): K56.609 - Unspecified intestinal obstruction, unspecified as to partial versus complete obstruction Status: Acute Assessment and Plan: Patient is NPO. NG is present in place to low intermittent wall suction. Patient still has high-pitched bowel sounds in the left lower quadrant and seems distended. He denies pain on palpation of the abdomen but does grimace when the abdomen is palpated. 12/28/19 16:39 Patient is 74-year-old male with a history of lymphoma status post robotic prostatectomy and and lymphadenectomy 2 weeks ago present to emergency department with a complaint abdominal pain vomiting poor appetite weakness patient is found to have a small-bowel obstruction patient is on NG tube, patient denies any nausea or vomiting he does complaint abdominal pain he has not been passing any gas and has not had a BM, patient denies any fever or chills patient seen by general surgery recommended continue present managed patient may need KUB to further evaluate, if patient's symptoms do not improve in next 48 hours will start the patient on TPN, today superintendent local patient had 2 BM, patient was seen by surgery team and small-bowel follow-through was ordered which showed normal transit time of 1-1/2 hours and no significant obstruction surgery team has decided to discontinue the NG tube is started the patient on clear liquid, continue to monitor, will monitor and advanced diet as tolerated (2) Bacteriuria with pyuria: Code(s): R82.71 - Bacteriuria; R82.81 - Pyuria Status: Acute Assessment and Plan: Possible UTI but urine specimen is from a urostomy. The patient is not having fevers and does not have leukocytosis. Will await urine cultures. The patient was placed on empiric antibiotic therapy with Rocephin. Urine culture is growing Enterococcus, patient has lymphoma and prostate cancer he is immunocompromised will consult ID for further recommendation (3) Protein calorie malnutrition: Code(s): E46 - Unspecified protein-calorie malnutrition Status: Chronic Assessment and Plan: Patient has chronic protein calorie malnutrition. He is overall failure to thrive. He would benefit from some peripheral nutrition. Subjective Date/time seen: 12/28/19 16:39 Patient is 74-year-old male with a history of lymphoma status post robotic prostatectomy and and lymphadenectomy 2 weeks ago present to emergency department with a complaint abdominal pain vomiting poor appetite weakness patient is found to have a small-bowel obstruction patient is on NG tube, patient denies any nausea or vomiting he does complaint abdominal pain he has not been passing any gas and has not had a BM, patient denies any fever or chills patient seen by general surgery recommended continue present managed patient may need KUB to further evaluate, if patient's symptoms do not improve in next 48 hours will start the patient on TPN, today superintendent local patient had 2 BM, patient was seen by surgery team and small-bowel follow-through was ordered which showed normal transit time of 1-1/2 hours and no significant obstruction surgery team has decided to discontinue the NG tube is started the patient on clear liquid, continue to monitor, will monitor and advanced diet as tolerated Review of Systems Review of Systems: All systems reviewed & are unremarkable except as noted in HPI and below Exam Narrative: Exam Narrative: Elderly frail Const: General: comfortable and no acute distress HENMT: General nose exam: Normal nares present Mouth: Yes moist mucous membranes Eyes: General: appearance normal, both eyes and all related structures Sclera: sclerae normal Neck: Neck: supple Resp: Effort & Inspection: normal respiratory effort Auscultation: clear to auscultation bilaterally Cardio: Rate: regular rate Rhythm: regular rhythm GI: Auscultation: nor
[2019-12-28] MEDS: SALINE 0.65% NAS SOLN 44 ML BTL 1 SPRAY NASAL (17:34)
[2019-12-29] VITALS (8 sets, daily range): BP systolic 135–184; BP diastolic 82–95; PULSE 62–88; RESP 16; TEMP 36.7–37.2; O2SAT 95–97
[2019-12-29] MEDS: SODIUM CHLORIDE 0.9% IV 1,000 ML 125 ML IV CONT (03:45)
[2019-12-29] MEDS: METOPROLOL TARTRATE INJ 5 MG/5 ML VIAL IV PUSH ×2 (03:48→10:28)
[2019-12-29 06:05] LABS: Hematocrit 29.2 % (42.0-52.0); Hemoglobin 9.6 g/dL (14.0-18.0); Mean Corpuscular HGB Conc 32.9 g/dl (32-36); Mean Corpuscular Hemoglobin 30.4 pg (26-34); Mean Corpuscular Volume 92.4 fl (80-100); Platelet Count Result 433 k/mm3 (150-375); Red Blood Count 3.16 M/mm3 (4.6-6.20); Red Cell Distribution Width 14.5 % (11.5-14.5); White Blood Count 6.1 K/mm3 (4.5-10.0)
--- NOTE | 2019-12-29 07:05 | PM.PNGS ---
Progress Note: A&P Assessment and Plan (1) SBO (small bowel obstruction): Code(s): K56.609 - Unspecified intestinal obstruction, unspecified as to partial versus complete obstruction Status: Acute Assessment and Plan: Seems to have resolved. Will advance to soft diet. Up walking today. DC IV fluids. (2) Protein calorie malnutrition: Code(s): E46 - Unspecified protein-calorie malnutrition Status: Chronic Assessment and Plan: Advance to soft diet today. Does not look like he will need TPN. (3) H/O total cystectomy: Code(s): Z90.6 - Acquired absence of other parts of urinary tract Status: Acute (4) MANDEEP (acute kidney injury): Code(s): N17.9 - Acute kidney failure, unspecified Status: Acute Assessment and Plan: Creatinine lower yesterday but pending today. Seems to be improving. (5) Muscular deconditioning: Code(s): R29.898 - Other symptoms and signs involving the musculoskeletal system Status: Acute Subjective Subjective Date/Time Seen: 12/29/19 07:05 Patient reports: no new complaints, feels better, pain is less (No abdominal pain at all), tolerating liquids well and bowel movement (Multiple bowel movements.) Review of Systems Review of Systems: All systems reviewed & are unremarkable except as noted in HPI and below Constitutional: Constitutional: Denies headache(s) ENT: Denies headache(s) Cardiovascular: Cardiovascular: Denies chest pain and Denies dyspnea Respiratory: Respiratory: Denies cough and Denies dyspnea Gastrointestinal: Gastrointestinal: Reports as per HPI Neurologic: Denies confusion and Denies headache(s) Psychiatric: Psychiatric: Denies confusion Exam Const: General: comfortable and no acute distress; No confusion Orientation/consciousness: patient oriented x3 and No confusion Resp: Effort & Inspection: normal respiratory effort Auscultation: clear to auscultation bilaterally Cardio: Rate: regular rate Rhythm: regular rhythm GI: Inspection: non-distended and other (Ileo conduit on the right) GI Palp: Yes Soft to palpation, No Tenderness to palpation present (GI), No Guarding due to palpation present (GI) and No Rebound tenderness present Auscultation: normal bowel sounds Neuro: General: patient oriented x3, no focal motor deficits and No confusion Extrem: General: no calf tenderness and no edema Psych: Affect: normal affect Insight: Good insight present (Psych) Judgement: Good judgement present (Psych) Objective Data Vital Signs Vital Signs: Vital Signs - 24 hr 12/28/19 09:29 12/28/19 14:11 12/28/19 16:34 Temperature 36.3 C L Pulse Rate 64 110 H 68 Respiratory Rate 20 Blood Pressure 117/97 H Pulse Oximetry 100 12/28/19 21:38 12/28/19 21:43 12/29/19 03:45 Temperature 36.4 C Pulse Rate 77 77 62 Respiratory Rate 16 Blood Pressure 168/96 H 139/95 H Pulse Oximetry 100 12/29/19 03:48 12/29/19 06:00 Temperature 37.2 C Pulse Rate 62 74 Respiratory Rate 16 Blood Pressure 184/95 H Pulse Oximetry 97 Intake/Output Intake/Output: Intake & Output 12/26/19 12/27/19 12/28/19 12/29/19 23:59 23:59 23:59 23:59 Intake Total 4394 2736 1434 Output Total 750 1650 500 Balance 3644 1086 934 Meds/Results Medications: Active Medications Generic Name Dose Route Start Last Admin Trade Name Freq PRN Reason Stop Dose Admin Hydralazine HCl 10 mg 12/27/19 22:00 12/27/19 23:21 Apresoline Hcl Inj IV PUSH 10 mg Q4H PRN Administration SBP greater than 180 Metoprolol Tartrate 5 mg 12/27/19 22:00 12/29/19 03:48 Lopressor Inj IV PUSH 5 mg Q6H MONICA Administration Morphine Sulfate 4 mg 12/27/19 00:27 Morphine Sulfate Inj IV PUSH Q2H PRN Pain Rated 7-10 Ondansetron HCl 4 mg 12/27/19 00:27 Zofran Inj IV PUSH Q4H PRN Nausea Sodium Chloride 1 spray 12/28/19 16:31 12/28/19 17:34 [place] Nasal [place] NASAL
[2019-12-29 07:32] LABS: Blood Urea Nitrogen 21 mg/dL (9-20); Calcium 8.5 mg/dL (8.4-10.2); Carbon Dioxide 17 mmol/L (22-30); Chloride 109 mmol/L (98-107); Estimated CRCL calculation 52 ml/min; Estimated Glomerular Filt Rate 54; Glucose 91 mg/dL (75-110); Potassium 3.1 mmol/L (3.4-5.0); Sodium 135 mmol/L (137-145)
--- NOTE | 2019-12-29 09:08 | PCPTNOTE ---
Attempted PT eval. Pt refused, stated he had been up all night and wanted to sleep. Will try again later today.
--- NOTE | 2019-12-29 11:39 | WPDINFPN2 ---
Progress Note: A&P Assessment and Plan (1) Bacteriuria with pyuria: Code(s): R82.71 - Bacteriuria; R82.81 - Pyuria Status: Acute Assessment and Plan: Asymptomatic bacteriuria, in setting of fully functional ileal conduit REC Agree no antimicrobials. Will see prn, thanks Subjective Date/time seen: 12/29/19 11:39 Objective Data Vital Signs Vital Signs: Vital Signs - 24 hr 12/28/19 14:11 12/28/19 16:34 12/28/19 21:38 Temperature 36.3 C L 36.4 C Pulse Rate 110 H 68 77 Respiratory Rate 20 16 Blood Pressure 117/97 H 168/96 H Pulse Oximetry 100 100 12/28/19 21:43 12/29/19 03:45 12/29/19 03:48 Temperature Pulse Rate 77 62 62 Respiratory Rate Blood Pressure 139/95 H Pulse Oximetry 12/29/19 06:00 12/29/19 10:28 Temperature 37.2 C Pulse Rate 74 73 Respiratory Rate 16 Blood Pressure 184/95 H Pulse Oximetry 97 Intake/Output Intake/Output: Intake & Output 12/26/19 12/27/19 12/28/19 12/29/19 23:59 23:59 23:59 23:59 Intake Total 4394 2736 1914 Output Total 750 1650 500 Balance 3644 1086 1414 Meds/Results Medications: Active Medications Generic Name Dose Route Start Last Admin Trade Name Freq PRN Reason Stop Dose Admin Hydralazine HCl 10 mg 12/27/19 22:00 12/27/19 23:21 Apresoline Hcl Inj IV PUSH 10 mg Q4H PRN Administration SBP greater than 180 Metoprolol Tartrate 5 mg 12/27/19 22:00 12/29/19 10:28 Lopressor Inj IV PUSH 5 mg Q6H MONICA Administration Morphine Sulfate 4 mg 12/27/19 00:27 Morphine Sulfate Inj IV PUSH Q2H PRN Pain Rated 7-10 Ondansetron HCl 4 mg 12/27/19 00:27 Zofran Inj IV PUSH Q4H PRN Nausea Sodium Chloride 1 spray 12/28/19 16:31 12/28/19 17:34 [place] Nasal [place] NASAL 1 spray Q6HR PRN Administration Congestion Radiology Results: ITS Impressions Abdomen/Pelvis CT 12/27/19 08:21 IMPRESSION: Small bowel obstruction Status post cystectomy and prostatectomy Hepatic and renal cysts Upper GI Series 12/28/19 13:31 IMPRESSION: 1: Dilated small bowel with decompressed distal small bowel. Normal transit time to the colon of less than 1 hour 30 minutes. Differential diagnosis includes partial obstruction and ileus. No definite transition point is identified. Abdomen X-Ray 12/29/19 07:15 IMPRESSION: Persistent abnormal gaseous dilatation of the small bowel suggesting partial small bowel obstruction Labs Labs: Laboratory Results - last 24 hr 12/29/19 12/29/19 05:45 05:45 WBC 6.1 RBC 3.16 L Hgb 9.6 L Hct 29.2 L MCV 92.4 MCH 30.4 MCHC 32.9 RDW 14.5 Plt Count 433 H MPV 9.0 Sodium 135 L Potassium 3.1 L Chloride 109 H Carbon Dioxide 17 L BUN 21 H Creatinine 1.30 Estim Creat Clear Calc 52 Estimated GFR 54 L Glucose 91 Calcium 8.5
--- NOTE | 2019-12-29 13:07 | PCOTNOTE ---
Attempted to see patient this pm, however patient refused. I'm ready to get out of here. Do you have a list of exercises? Just leave me with a list, and I'll do them later. Issued upper extremity exercise list.
--- NOTE | 2019-12-29 16:33 | PM.IMPN ---
Progress Note: A&P Assessment and Plan (1) SBO (small bowel obstruction): Code(s): K56.609 - Unspecified intestinal obstruction, unspecified as to partial versus complete obstruction Status: Acute Assessment and Plan: Patient is 74-year-old male with a history of lymphoma status post robotic prostatectomy and and lymphadenectomy 2 weeks ago present to emergency department with a complaint abdominal pain vomiting poor appetite weakness patient is found to have a small-bowel obstruction patient is on NG tube, Pt had NG removed, tolerating soft bites, hopeful home tomorrow. Seen by surgery team already. Awaiting bowel movement, passing gas. Surgery team rounding. (2) Bacteriuria with pyuria: Code(s): R82.71 - Bacteriuria; R82.81 - Pyuria Status: Acute Assessment and Plan: The patient was placed on empiric antibiotic therapy with Rocephin. Urine culture is growing Enterococcus, patient has lymphoma and prostate cancer. (3) Protein calorie malnutrition: Code(s): E46 - Unspecified protein-calorie malnutrition Status: Chronic Assessment and Plan: Patient has chronic protein calorie malnutrition. He is overall failure to thrive. He would benefit from some peripheral nutrition. Subjective Date/time seen: 12/29/19 16:33 Interval history: Patient is 74-year-old male with a history of lymphoma status post robotic prostatectomy and and lymphadenectomy 2 weeks ago present to emergency department admitted with SBO. Pt had NG removed, tolerating soft bites, hopeful home tomorrow. Seen by surgery team already. Review of Systems Review of Systems: All systems reviewed & are unremarkable except as noted in HPI and below Gastrointestinal: Gastrointestinal: Denies dysphagia, Reports excessive flatus, Denies heartburn, Denies diarrhea and Denies vomiting Comments: Constipated Exam Narrative: Exam Narrative: Elderly frail, pleasant Const: General: comfortable and no acute distress HENMT: General nose exam: Normal nares present Mouth: Yes moist mucous membranes Eyes: General: appearance normal, both eyes and all related structures Sclera: sclerae normal Neck: Neck: supple Resp: Effort & Inspection: normal respiratory effort Auscultation: clear to auscultation bilaterally Cardio: Rate: regular rate Rhythm: regular rhythm GI: Auscultation: normal bowel sounds Other: Nontender Skin: General skin exam: normal color and no rashes or lesions noted Neuro: Speech: normal speech Sensory Exam: normal sensation Extrem: General: normal to inspection Psych: Affect: Anxious affect present Objective Data Vital Signs Vital Signs: Vital Signs - 24 hr 12/28/19 16:34 12/28/19 21:38 12/28/19 21:43 Temperature 36.4 C Pulse Rate 68 77 77 Respiratory Rate 16 Blood Pressure 168/96 H Pulse Oximetry 100 12/29/19 03:45 12/29/19 03:48 12/29/19 06:00 Temperature 37.2 C Pulse Rate 62 62 74 Respiratory Rate 16 Blood Pressure 139/95 H 184/95 H Pulse Oximetry 97 12/29/19 10:28 12/29/19 14:42 Temperature 36.8 C Pulse Rate 73 65 Respiratory Rate 16 Blood Pressure 146/82 H Pulse Oximetry 97 Intake/Output Intake/Output: Intake & Output 12/26/19 12/27/19 12/28/19 12/29/19 23:59 23:59 23:59 23:59 Intake Total 4394 2736 2154 Output Total 750 1650 500 Balance 3644 1086 1654 Meds/Results Medications: Active Medications Generic Name Dose Route Start Last Admin Trade Name Freq PRN Reason Stop Dose Admin Hydralazine HCl 10 mg 12/27/19 22:00 12/27/19 23:21 Apresoline Hcl Inj IV PUSH 10 mg Q4H PRN Administration SBP greater than 180 Metoprolol Tartrate 5 mg 12/27/19 22:00 12/29/19 10:28 Lopressor Inj IV PUSH 5 mg Q6H MONICA Administration Morphine Sulfate 4 mg 12/27/19 00:27 Morphine Sulfate Inj IV PUSH Q2H PRN Pain Rated 7-10 Ondansetron HCl 4 mg 12/27/19 00:27 Zofran Inj IV PUSH
[2019-12-29] MEDS: SACUBITRIL/VALSARTAN 49-51 MG TABLET 1 TABLET PO (18:32)
[2019-12-29] MEDS: POTASSIUM CHLORIDE 20 MEQ TABLET.ER PO (19:01)
[2019-12-29] MEDS: carvediloL 25 MG TABLET PO (22:21)
[2019-12-29] MEDS: GABAPENTIN 300 MG CAPSULE PO (22:21)
[2019-12-30 06:00] VITALS: BP 160/86; PULSE 60; RESP 16; TEMP 37; O2SAT 100
--- NOTE | 2019-12-30 06:01 | CONS_ITS ---
DATE OF CONSULTATION: 12/29/2019 REASON FOR CONSULTATION: Abnormal UA. HISTORY OF PRESENT ILLNESS: The patient is a 74-year-old male who has had lymphoma in the past. He also had bladder tumors and has undergone TURBT on multiple occasions in the past. In the past, he was found to have muscular invasion of the bladder wall and on October 07 had cystoprostatectomy, lymphadenectomy, ileal loop urinary diversion. He has not received any radiation therapy in the interim. He has been on no antibiotics recently for any reason. He denies fever, chills, sweats, gross hematuria, cloudy urine, or decreased urine output. He presented to the hospital on December 25 with nausea and vomiting. He has been found to have small bowel obstruction and has been treated accordingly. He has received no antibiotics. Apparently, because of his nausea and vomiting, he had a urinalysis performed, which was abnormal and consultation now requested. Previous urine culture grew enterococcus last year. The patient is feeling better, though still has anorexia and some nausea. There has been no flank pain and no history of upper tract urine infection. ALLERGIES: NONE KNOWN. PRESENT MEDICATIONS: List reviewed. No systemic immunosuppressants. HABITS: Continues to smoke 1 pack per day, 3 drinks per week. PAST MEDICAL HISTORY: In addition to the above, peripheral neuropathy, heart failure, depression, essential hypertension, multiple falls with concussions and subarachnoid hemorrhage, hearing loss, right worse than left; rib fractures, cataract extractions, hernia repairs, inguinal area, tonsillectomy. FAMILY HISTORY: COPD, stroke, hyperlipidemia. SOCIAL HISTORY: . He lived for 6 years in [facility], moved here apparently in part due to his lymphoma. He is retired from [employer], is a mathematical sciences professor. He has dogs and cats, has help at home from non-relatives. REVIEW OF SYSTEMS: 14-point review otherwise negative. PHYSICAL EXAMINATION: GENERAL: This is an elderly male who appears his actual age. No acute distress. VITAL SIGNS: Afebrile, 184/95, 74, 16, 97% on room air. SKIN: Warm and dry. No rashes. EENT: The conjunctivae are normal. Pupils equal, round, reactive to light. No icterus. The oropharynx, oral mucosa clear. No paranasal sinus erythema, edema or tenderness. NECK: Without mass, thyromegaly or meningismus. LUNGS: Clear to auscultation and percussion. BACK: No CVAT. CARDIAC: Regular rate and rhythm with no murmur or gallop. ABDOMEN: Scaphoid. Normal bowel sounds. Nontender. No organomegaly. He has a right mid abdomen ileal conduit draining clear yellow urine. No sediment. EXTREMITIES: Well perfused. No clubbing, cyanosis, or edema. NEUROLOGIC: He is awake, alert, and appropriate. LABORATORY DATA: Urine culture so far with Klebsiella pneumoniae and preoperative urine culture 09/24, enterococcus. His white count is consistently normal, 6.1 today, hemoglobin 9.6, platelets are 433. He has mild hyponatremia, hypokalemia, CO2 of 17, BUN 21, creatinine 1.3 down from 2.1. His urinalysis, joaquin cloudy, 8, 1.018, positive for protein, bilirubin, urobilinogen, leukocyte esterase, 11-20 red cells, greater than 75 white cells with clumps. RADIOLOGY DATA: CT of his abdomen and pelvis showed the urostomy and other postop changes, small bowel obstruction. Other chronic findings. ASSESSMENT: 1. Asymptomatic bacteriuria with a functional ileal conduit, no obstruction. No urinary hardware. He has no sepsis. 2. Nausea, vomiting due to small bowel obstruction, not due to pyelonephritis. 3. History of lymphoma. 4. Urothelial malignancy. 5. Tobacco. RECOMMENDATIONS: 1. Agree no antimicrobials. 2. Can b
[2019-12-30 08:22] LABS: Hematocrit 29.6 % (42.0-52.0); Hemoglobin 9.9 g/dL (14.0-18.0); Mean Corpuscular HGB Conc 33.4 g/dl (32-36); Mean Corpuscular Hemoglobin 30.3 pg (26-34); Mean Corpuscular Volume 90.5 fl (80-100); Mean Platelet Volume 8.9 fl (7.4-10.4); Platelet Count Result 415 k/mm3 (150-375); Red Blood Count 3.27 M/mm3 (4.6-6.20); Red Cell Distribution Width 14.5 % (11.5-14.5); White Blood Count 7.2 K/mm3 (4.5-10.0)
[2019-12-30 08:36] LABS: Blood Urea Nitrogen 14 mg/dL (9-20); Calcium 8.2 mg/dL (8.4-10.2); Carbon Dioxide 19 mmol/L (22-30); Chloride 105 mmol/L (98-107); Estimated CRCL calculation 56 ml/min; Estimated Glomerular Filt Rate 59; Glucose 107 mg/dL (75-110); Potassium 3.4 mmol/L (3.4-5.0); Sodium 133 mmol/L (137-145)
[2019-12-30 08:51] VITALS: PULSE 72
[2019-12-30] MEDS: POTASSIUM CHLORIDE 20 MEQ TABLET.ER PO (08:51)
[2019-12-30] MEDS: SACUBITRIL/VALSARTAN 49-51 MG TABLET 1 TABLET PO (08:51)
[2019-12-30] MEDS: carvediloL 25 MG TABLET PO (08:51)
[2019-12-30] MEDS: ASPIRIN 81 MG ENTERIC TABLET PO (08:51)
[2019-12-30] MEDS: DULOXETINE 60 MG CAPSULE.DR PO (08:51)
--- NOTE | 2019-12-30 10:15 | PCPTNOTE ---
Patient declined PT treatment. Patient states I am comfortable here in bed .
--- NOTE | 2019-12-30 10:44 | PCDIET ---
Nutrition Follow-Up Complete: Inadequate oral intake R/T poor appetite as evidence by wt loss of 2-13lbs Diet advancement with PO intake of 75% or greater of meals and supplements Goal: Goal met. Continue with current goal. Pt current nutrition is Soft and bite sized level 6 with compact BID. Nutrition recommendation: agree Last recorded weight is 81.2 kg (need new wt) Bowel Motility: Small Liquid BM yesterday Labs Reviewed: Hgb 9.9, Hct 29.6, Na 133, Ca 8.2 Meds Noted:KCL Additional Notes: Pt possibly d/c today. Ate cream of wheat, oats, and milk this am. Does drink supplements at home. Encouraged to continue ONS at home, choosing those high in kcals and protein to halt any further wt loss when appetite is low. We will continue to monitor po intake, diet, labs, wt every five days.
--- NOTE | 2019-12-30 14:13 | PM.DS ---
DS: Diagnosis Admitting Diagnosis Admitting Diagnosis: Unspecified intestinal obstruction, unspecified as to partial versus complete obstruction Discharge Diagnosis (1) SBO (small bowel obstruction): Code(s): K56.609 - Unspecified intestinal obstruction, unspecified as to partial versus complete obstruction Status: Acute Assessment and Plan: Patient is 74-year-old male with a history of lymphoma status post robotic prostatectomy and and lymphadenectomy 2 weeks ago present to emergency department with a complaint abdominal pain vomiting poor appetite weakness patient is found to have a small-bowel obstruction patient is on NG tube, Pt had NG removed, tolerating soft bites, hopeful home today. Seen by surgery team already. Pt had a bowel movement yesterday. Surgery team rounding. (2) Bacteriuria with pyuria: Code(s): R82.71 - Bacteriuria; R82.81 - Pyuria Status: Acute Assessment and Plan: The patient was placed on empiric antibiotic therapy with Rocephin. Urine culture is growing Enterococcus, patient has lymphoma and prostate cancer. Seen by ID no further ABX necessary on discharge. (3) Protein calorie malnutrition: Code(s): E46 - Unspecified protein-calorie malnutrition Status: Chronic Assessment and Plan: Patient has chronic protein calorie malnutrition. He is overall failure to thrive. Continue small bites megace and ensures at home. DS: Summary Time Spent with Patient Time attestation: Total time spent providing and/or coordinating discharge services:38 minutes on day of discharge Exam Narrative: Exam Narrative: Elderly frail, pleasant Const: General: comfortable and no acute distress HENMT: General nose exam: Normal nares present Mouth: Yes moist mucous membranes Other: NG tube in place Eyes: General: appearance normal, both eyes and all related structures Sclera: sclerae normal Neck: Neck: supple Resp: Effort & Inspection: normal respiratory effort Auscultation: clear to auscultation bilaterally Cardio: Rate: regular rate Rhythm: regular rhythm GI: Auscultation: normal bowel sounds Other: Nontender urostomy bag in situ Skin: General skin exam: normal color and no rashes or lesions noted Neuro: Speech: normal speech Sensory Exam: normal sensation Extrem: General: normal to inspection Psych: Affect: Anxious affect present DS: Data Data Completed and Pending Labs on day of discharge: Labs from last 24 hours 12/30/19 12/30/19 07:42 07:42 WBC 7.2 RBC 3.27 L Hgb 9.9 L Hct 29.6 L MCV 90.5 MCH 30.3 MCHC 33.4 RDW 14.5 Plt Count 415 H MPV 8.9 Sodium 133 L Potassium 3.4 Chloride 105 Carbon Dioxide 19 L BUN 14 D Creatinine 1.20 Estim Creat Clear Calc 56 Estimated GFR 59 Glucose 107 Calcium 8.2 L Preliminary micro results at discharge 12/26/19 22:36 Urine Culture - Preliminary Urine Clean Catch Klebsiella pnemoniae Discharge Plan Discharge Attending physician on discharge: Angelina Diez Consulting providers: Blas Parish Discharging Clinician: Angelina Diez Anticipated Discharge Date/Time: 12/30/19 14:12 Patient Disposition: Home, Self-Care Activity: as tolerated Diet: other - see discharge instructions Discharge Instructions: Per Care Coordination Patient to resume [facility] services as previously arranged. [phone] SOFT DIET AND BITES Patient Instructions: Antibiotic Form, How to Stop Smoking (DC), Pain Management (GEN) Stand Alone Forms: General Discharge Information Follow-up/Referrals: Blas Parish MD [Physician] - Jamey Brooks MD [Primary Care Provider] - Discharge Medications: Continued sacubitril-valsartan 49-51 mg tablet 1 tablet PO BID Qty: 180 RF: 1 duloxetine 60 mg capsule,delayed release(DR/EC) 60 mg PO DAILY Qty: 90 RF: 1 gabapentin 300 mg capsule 300 mg PO
[2019-12-30 14:56] VITALS: BP 155/104; PULSE 67; RESP 16; TEMP 36.8; O2SAT 99
--- NOTE | 2019-12-30 15:39 | PCOTNOTE ---
Attempted to see patient this p.m. Upon entering the room, bed alarm was sounding and patient was transferring out of bed independently. Patient reports of discharge and leaving this afternoon. Discharge confirmed with RN. When asked if patient would like to participate in skilled OT session to get ready to leave, patient declined stating, I don't need any help to get ready. I can do it on my own. Patient refuses to participate in OT session this date.
--- NOTE | 2019-12-30 15:57 | PM.PNGS ---
Progress Note: A&P Assessment and Plan (1) SBO (small bowel obstruction): Code(s): K56.609 - Unspecified intestinal obstruction, unspecified as to partial versus complete obstruction Status: Acute Assessment and Plan: Seems to have resolved. Okay to discharge from a surgical standpoint. May slowly advance to his regular diet. No follow-up needed with surgery. (2) Protein calorie malnutrition: Code(s): E46 - Unspecified protein-calorie malnutrition Status: Chronic (3) H/O total cystectomy: Code(s): Z90.6 - Acquired absence of other parts of urinary tract Status: Acute (4) MANDEEP (acute kidney injury): Code(s): N17.9 - Acute kidney failure, unspecified Status: Acute (5) Muscular deconditioning: Code(s): R29.898 - Other symptoms and signs involving the musculoskeletal system Status: Acute Additional Plan Discussed plan with Dr. Parish. Subjective Subjective Date/Time Seen: 12/30/19 15:57 Patient reports: no new complaints, feels better, flatus and bowel movement Interval history: Patient reports feeling well today. No new complaints. Bowels are moving. Tolerating a soft diet. No nausea, vomiting, or bloating. Review of Systems Review of Systems: All systems reviewed & are unremarkable except as noted in HPI and below Exam Const: General: no acute distress, alert and awake Orientation/consciousness: patient oriented x3 GI: Inspection: non-distended and other (Ileo conduit on the right) GI Palp: Yes Soft to palpation, No Tenderness to palpation present (GI), No Guarding due to palpation present (GI) and No Rebound tenderness present Auscultation: normal bowel sounds Neuro: General: patient oriented x3 and no focal motor deficits Psych: Thought process: Normal thought process present Insight: Good insight present (Psych) Judgement: Good judgement present (Psych) Objective Data Vital Signs Vital Signs: Vital Signs - 24 hr 12/29/19 22:00 12/29/19 22:21 12/30/19 06:00 Temperature 36.7 C 37.0 C Pulse Rate 88 65 60 Respiratory Rate 16 16 Blood Pressure 135/90 160/86 H Pulse Oximetry 95 100 12/30/19 08:51 12/30/19 14:56 Temperature 36.8 C Pulse Rate 72 67 Respiratory Rate 16 Blood Pressure 155/104 H Pulse Oximetry 99 Intake/Output Intake/Output: Intake & Output 12/27/19 12/28/19 12/29/19 12/30/19 23:59 23:59 23:59 23:59 Intake Total 4394 2736 3084 1860 Output Total 750 7728 267 3534 Balance 3644 1086 8644 260 Meds/Results Medications: Active Medications Generic Name Dose Route Start Last Admin Trade Name Freq PRN Reason Stop Dose Admin Aspirin 81 mg 12/30/19 09:00 12/30/19 08:51 Aspirin Ec PO 81 mg DAILY MONICA Administration Carvedilol 25 mg 12/29/19 21:00 12/30/19 08:51 Coreg PO 25 mg Q12HR MONICA Administration Duloxetine HCl 60 mg 12/30/19 09:00 12/30/19 08:51 Cymbalta PO 60 mg DAILY MONICA Administration Gabapentin 300 mg 12/29/19 21:00 12/29/19 22:21 Neurontin PO 300 mg HS MONICA Administration Hydralazine HCl 10 mg 12/27/19 22:00 12/27/19 23:21 Apresoline Hcl Inj IV PUSH 10 mg Q4H PRN Administration SBP greater than 180 Morphine Sulfate 4 mg 12/27/19 00:27 Morphine Sulfate Inj IV PUSH Q2H PRN Pain Rated 7-10 Ondansetron HCl 4 mg 12/27/19 00:27 Zofran Inj IV PUSH Q4H PRN Nausea Potassium Chloride 20 meq 12/29/19 08:00 12/30/19 08:51 Kcl Tablet PO 20 meq DAILY@0800 MONICA Administration Sacubitril/Valsartan 1 tablet 12/29/19 17:00 12/30/19 08:51 Entresto 49 Mg-51 Mg Tablet PO 1 tablet BID MONICA Administration Sodium Chloride 1 spray 12/28/19 16:31 12/28/19 17:34 [place] Nasal [place] NASAL 1 spray Q6HR PRN Administration Congestion Radiology Results: ITS Impressions Abdomen/Pelvis CT 12/27/19 08:21 IMPRESSION: Small bowel obstruction Status post cystectomy and prostatectomy
== END 2019-12-30 16:30 | disposition home health service (06) | DRG 389 ==
LOC: ANHED 23:52 → ANH3MEDSUR 12-27 03:01
PROVIDERS: Family Medicine; Surgery; Admitting Provider Internal Medicine; Emergency Provider Emergency Medicine; PCP Internal Medicine; Visit Provider Family Medicine
DX: K56.609 Unspecified intestinal obstruction, unspecified as to partial versus complete obstruction (principal); E46 Unspecified protein-calorie malnutrition; I11.0 Hypertensive heart disease with heart failure; Z85.51 Personal history of malignant neoplasm of bladder; Z85.72 Personal history of non-Hodgkin lymphomas; Z90.6 Acquired absence of other parts of urinary tract; Z68.21 Body mass index [BMI] 21.0-21.9, adult; Z92.21 Personal history of antineoplastic chemotherapy; G62.0 Drug-induced polyneuropathy; T45.1X5A Adverse effect of antineoplastic and immunosuppressive drugs, initial encounter; R82.71 Bacteriuria; I50.9 Heart failure, unspecified; I10 Essential (primary) hypertension; H91.90 Unspecified hearing loss, unspecified ear; Z98.41 Cataract extraction status, right eye; Z98.42 Cataract extraction status, left eye; Z90.79 Acquired absence of other genital organ(s); R62.7 Adult failure to thrive; F32.9 Major depressive disorder, single episode, unspecified; E86.0 Dehydration; R82.81 Pyuria; F17.210 Nicotine dependence, cigarettes, uncomplicated
CPT/HCPCS: 36415; 74018; 74177; 74240; 74248; 80048; 80053; 81001; 83735; 84484; 85025; 85027; 85610; 85730; 87077; 87086; 87088; 87186; 93005; 96361; 96365; 96375; 97161; 97165; 99285; A9270; J0360; J0696; J2405; J7030; Q9967

== ENCOUNTER 2020-01-01 09:48 | Inpatient (IN) | payer OTHER, SELFPAY ==
[2020-01-01] VITALS (9 sets, daily range): BP systolic 77–153; BP diastolic 56–97; PULSE 74–117; RESP 16–20; TEMP 36.4–36.9; O2SAT 93–100; BMI 20.4
--- NOTE | ~2020-01-01 | XR_ITS ---
XR abdomen obstructive series DATE: 01/02/2020 06:16 INDICATION: Small bowel obstruction TECHNIQUE: Portable supine and upright AP views on 01/02/2020 at 0 540 and 0542 hours COMPARISON: 01/01/2020 portable KUB for NG tube position 01/01/2020 obstructive series 12/28/2019 upper gastrointestinal series with small bowel follow-through 12/26/2019 CT abdomen pelvis FINDINGS: NG tube is in proximal stomach, the proximal side port situated at the diaphragmatic hiatus in the lower chest. Advancement of the tube is recommended. Normal heart size. Probable scarring in the left lower lobe. No consolidation is evident in the lower lung zones. No pleural effusions. There is residual contrast material within the colon. There are persistent gas-distended dilated sma ll bowel loops suggesting partial small bowel obstruction versus less likely adynamic ileus. No evidence of intraperitoneal free air. IMPRESSION: NG tube in proximal stomach; advancement is recommended Persistent small bowel gaseous dilatation suggesting partial small bowel obstruction, less likely iliana namic ileus Reviewed, dictated and finalized at [facility] Reviewed, dictated and finalized at [facility]. IMPRESSION: NG tube in proximal stomach; advancement is recommended Persistent small bowel gaseous dilatation suggesting partial small bowel obstru ction, less likely adynamic ileus
--- NOTE | ~2020-01-01 | XR_ITS ---
EXAMINATION: XR abdomen obstructive series DATE: 01/01/2020 11:36 INDICATION: Vomiting, history of recent small bowel obstruction TECHNIQUE: Upright and supine views of the abdomen were obtained. COMPARISON: 12/30/2019 FINDINGS: There are persistently dilated loops of small bowel in the midabdomen. Contrast from recent upper GI/small bowel series partially opacifies the colon. No free intraperitoneal gas is identified . IMPRESSION: 1. Dilated small bowel loops, consistent with ileus versus partial obstruction. Reviewed, dictated and finalized at [facility].
--- NOTE | ~2020-01-01 | XR_ITS ---
EXAMINATION: XR chest 2V DATE: 01/01/2020 11:36 INDICATION: Hypoxia TECHNIQUE: AP and lateral views of the chest are obtained. COMPARISON: 09/24/2019 FINDINGS: The lungs are free of acute opacities. There is no pleural effusion or pneumothorax. The ca rdiomediastinal silhouette is normal. There are multiple healing right-sided rib fractures. IMPRESSION: 1. No acute cardiopulmonary abnormality. Reviewed, dictated and finalized at [facility].
--- NOTE | ~2020-01-01 | XR_ITS ---
XR abdomen obstructive series DATE: 01/03/2020 05:35 INDICATION: Vomiting, bowel obstruction. TECHNIQUE: Portable supine and upright AP views COMPARISON: 01/02/2020 portable supine and upright AP views of the abdomen FINDINGS: NG tube has been advanced since 01/02/2020, the proximal side-port now approximately 3.3 cm distal to the diaphragmatic hiatus, compared to its position in the lower thorax on 01/02/2020. There is a prominent amount of fecal material and gas in the colon, especially right colon, and some gas-distended small bowel segments; the gaseous distention appears mildly improved since 01/02/2020. 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 IMPRESSION: Mild improvement of gaseous distention of the bowel since 01/02/2020 NG tube advanced into stomach with proximal side port now within the abdomen since 01/02/2020 Reviewed, dictated and finalized at [facility] Reviewed, dictated and finalized at [facility]. IMPRESSION: Mild improvement of gaseous distention of the bowel since 01/02/2020 NG tube advanced into stomach with proximal side port now within the abdomen si nce 01/02/2020
--- NOTE | ~2020-01-01 | XR_ITS ---
EXAMINATION: XR abdomen NG/feed tube insert INDICATION: Nasogastric tube insertion TECHNIQUE: Portable AP KUB-NG at 1333 hours COMPARISON: Radiographs from today and 12/30/2019 FINDINGS: The nasogastric tube is in the stomach. Again seen are multiple dilated loops of small john l. Enteric contrast material from recent small bowel follow-through partially opacifies the colon. IMPRESSION: 1. Nasogastric tube in the stomach. 2. Dilated small bowel, consistent with ileus versus partial obstruction Reviewed, dictated and finalized at [facility].
--- NOTE | 2020-01-01 10:06 | ED.NAVMDI ---
HPI - Nausea/Vomiting/Diarrhea General Chief complaint: Nausea/Vomiting/Diarrhea Stated complaint: N/V HX SBO Time Seen by Provider: 01/01/20 10:00 Source: patient Mode of arrival: ambulatory Limitations: no limitations History of Present Illness HPI Narrative: The pt is a 74 y/o male who presents to the ED c/o N/V onset 1 day ago. Pt presented to this ED on 12/27/19, and was admitted at that time due to infection and concern for small bowel obstruction. Pt states that he was discharged at 1630 on 12/30/19. He states that he ate a bit when he was discharged, but then began to vomit. He describes it as bilious, and notes that he has vomited so much he filled a waste bucket. He states that he has experienced some generalized weakness and resolved lightheadedness, stating that he has barely gotten out of bed. The pt also states that he has not had a BM since he was discharged, but states that he has been belching. Pt reports suprapubic ABD discomfort and cough, but denies fever. He notes that when he was discharged, he was not provided nausea medication. MD elicited complaint: nausea and vomiting Onset (ago): day(s) (1) Description of vomiting: bilious Associated nausea: Yes Associated abdominal pain: Yes (Describes it as a discomfort) Location of pain: suprapubic Associated symptoms: cough (Due to vomiting) and other (Lightheadedness (Resolved), generalized weakness, constipation) Related Data Home Medications Medication Instructions Recorded Confirmed carvedilol 25 mg PO BID 08/30/19 01/01/20 gabapentin 300 mg capsule 300 mg PO HS cap 08/31/19 01/01/20 aspirin [Aspir-81] 81 mg PO DAILY 09/24/19 01/01/20 Allergies Allergy/AdvReac Type Severity Reaction Status Date / Time No Known Allergies Allergy Unknown Verified 12/07/19 15:14 Review of Systems Review of Systems: All systems reviewed & are unremarkable except as noted in HPI and below Constitutional: Constitutional: Denies fever(s) and Reports weakness (Generalized) Respiratory: Respiratory: Reports cough (Due to vomiting) Gastrointestinal: Gastrointestinal: Reports abdominal pain (Discomfort, suprapubic), Reports constipation, Reports nausea and Reports vomiting Neurologic: Reports other (Lightheadedness (Resolved)) PMFSH Past Medical History Medical History Abnormal bone scan of cervical spine CT suggest hemangioma bone scan suggest Paget's disease Abnormal bone scan of lumbar spine 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 CHF (congestive heart failure) Depression Essential hypertension H/O subarachnoid hemorrhage Hearing loss Hernia History of lymphoma Diagnosed in 2018 now in remission Hypertension Hyponatremia 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 Postoperative ileus after bladdder resection Rib fracture September 2019 SBO (small bowel obstruction) Tobacco use Surgical History Surgical History H/O total cystectomy robotic assisted bladder resection History of bilateral cataract extraction History of bilateral inguinal hernia repair History of bladder surgery resection History of prostatectomy Hx of tonsillectomy S/P robot-assisted surgical procedure Social History Social History Social History: Primary care physician: Dr. Jamey Brooks Code status: DNR per patient request Smoking packs per day: 1 Smoking cigarettes per day: 20.0 Years smoked: 19 Smoking pack-years: 19.00 Smoking status: Current every day smoker Tobacco type: cigarettes Second hand tobacco smoke exposure: Yes Additional smoking assessment comments: The patient started smoking when he retired of 55 years of age. Alcohol intake: current Drinks per week: 3 Substance use: never Additional living arrangements comments: He is and lives in
[2020-01-01] MEDS: SODIUM CHLORIDE 0.9% IV 1,000 ML 999 ML (10:18)
[2020-01-01] MEDS: ONDANSETRON INJ 4 MG/2 ML VIAL IV PUSH ×2 (10:30→13:23)
[2020-01-01] MEDS: LACTATED RINGERS 1,000 ML 999 ML IV CONT (10:51)
[2020-01-01 11:04] LABS: Basophils Percent Auto 0.3 % (0.2-1.2); Eosinophils Absolute Auto 0.1 K/mm3 (0-0.3); Eosinophils Percent Auto 1.1 % (0-4.4); Hematocrit 39.2 % (42.0-52.0); Hemoglobin 13.3 g/dL (14.0-18.0); Immature Granulocyte Absolute 0.08 K/mm3 (0.00-0.031); Immature Granulocyte Percent A 0.7 % (0-0.5); Lymphocytes Absolute Auto 2.46 K/mm3 (0.9-3.2); Lymphocytes Percent Auto 20.9 % (18.3-44.2); Mean Corpuscular HGB Conc 33.9 g/dl (32-36); Mean Corpuscular Hemoglobin 30.3 pg (26-34); Mean Corpuscular Volume 89.3 fl (80-100); Mean Platelet Volume 9.5 fl (7.4-10.4); Monocytes Absolute Auto 0.8 K/mm3 (0.1-0.6); Monocytes Percent Auto 6.7 % (2.6-8.5); Neutrophils Absolute Auto 8.3 K/mm3 (1.3-6.7); Neutrophils Percent Auto 70.3 % (45.5-73.1); Platelet Count Result 592 k/mm3 (150-375); Red Blood Count 4.39 M/mm3 (4.6-6.20); Red Cell Distribution Width 14.6 % (11.5-14.5); White Blood Count 11.8 K/mm3 (4.5-10.0)
[2020-01-01 11:11] LABS: Lactic Acid Reflex 2.3 mmol/L (0.7-2.1)
[2020-01-01 11:12] LABS: Alanine Aminotransferase 22 U/L (4-50); Albumin Level 3.8 g/dL (3.5-5.1); Alkaline Phosphatase 87 U/L (38-126); Aspartate Amino Transferase 21 U/L (17-59); Bilirubin,Total 0.7 mg/dL (0.2-1.3); Blood Urea Nitrogen 23 mg/dL (9-20); Calcium 9.6 mg/dL (8.4-10.2); Carbon Dioxide 26 mmol/L (22-30); Chloride 96 mmol/L (98-107); Estimated Glomerular Filt Rate 35; Glucose 144 mg/dL (75-110); Lipase 30 U/L (23-300); Potassium 3.9 mmol/L (3.4-5.0); Sodium 135 mmol/L (137-145)
[2020-01-01 11:21] LABS: Add Urine Microscopic? YES; Appearance Urine Cloudy (Clear); Bacteria Urine Trace /hpf; Bilirubin Urine 2+ (Negative); Blood Urine Negative (Negative); Color Urine Amber (Yellow); Glucose Urine UA Negative (Negative); Ketones Urine Negative (Negative); Leukocyte Esterase Ur 2+ LEU/UL (Negative); Mucus Urine Heavy /lpf; Nitrate Urine Negative (Negative); Protein Urine 3+ mg/dL (Negative); Specific Grav Ur 1.017 (1.001-1.035); Squamous Epithelial Cell Urine Rare /hpf (Few); Urobilinogen Urine Negative mg/dL (<2.0); WBC Clumps Urine Present /HPF; WBC Urine 51-75 /hpf
[2020-01-01 13:58] LABS: Reflex Lactic Acid Yes or No Add Lactic
[2020-01-01 14:33] LABS: Lactic Acid 1.9 mmol/L (0.7-2.1)
--- NOTE | 2020-01-01 15:50 | ADMGEN ---
This patient, Duane Mayo, was admitted to 2 Medical Room 242-. Patient/family oriented to hospital policies and general routines including ID bracelet, bed and alarms, visiting hours, pain management, procedures, bathroom and other care routines, personal items, smoking policy, room service/diet, and visiting hours. Valuables list has been completed. Information on how to activate the Rapid Response Team has been discussed. Patient/Family are encouraged to report perceived risks to care and to ask questions if they do not understand what they are told or what they should do. Report received from
[2020-01-01] MEDS: LACTATED RINGERS 1,000 ML 125 ML IV CONT ×2 (15:55→23:37)
--- NOTE | 2020-01-01 20:12 | PM.IMHP ---
H&P: HPI History of Present Illness Chief complaint: nausea/vomiting/partial small bowel obstruction Narrative: Duane Mayo is a 74 year old male who came to the emergency room with complaints of nausea vomiting that started 1 day ago. The patient was last admitted here on 12/27/2019 with a small-bowel obstruction and a possible urinary tract infection. The patient was not sent home on any antibiotics he was seen by infectious disease and did not require any antibiotics at this time. The patient was seen by the surgical team and was conservatively treated at that time. The patient was discharged on 12/30/2019. The patient has been having bilious vomiting so much that he felt a waste basket. He has some generalized weakness and lightheadedness. He is barely got another bed. He has had some abdominal cramping. He has ileal conduit. His white count was noted to be 11.8 today. In NG-tube was inserted today for ileus versus partial bowel obstruction. Surgery has been consulted. The patient also has acute kidney injury with a creatinine 1.9. When he was discharged was 1.2. The patient was given Zofran and IV fluids in the emergency room. Date of service 01/01/2020. It was decided that the patient was not to be on antibiotics it was felt that his urinary tract infection had been colonized and did not require any further antibiotics. Review of Systems Review of Systems: Narrative: He has no fever or chills. All systems reviewed & are unremarkable except as noted in HPI and below Constitutional: Constitutional: Reports as per HPI and Reports no additional constitutional complaints Eyes: Eyes: Reports as per HPI and Reports no additional eye complaints ENT: Reports system reviewed and no additional complaints, except as documented and Reports Normal hearing present Cardiovascular: Cardiovascular: Reports no additional cardiovascular complaints Respiratory: Respiratory: Reports no additional respiratory complaints and Reports no additional respiratory complaints Gastrointestinal: Gastrointestinal: Reports as per HPI and Reports no additional gastrointestinal complaints Musculoskeletal: Musculoskeletal: Reports no additional musculoskeletal complaints Integumentary/Breasts: Skin/Breast: Reports system reviewed and no additional complaints, except as docu and Reports as per HPI Neurologic: Reports system reviewed and no additional complaints, except as documented, Reports as per HPI and Reports Normal hearing present Psychiatric: Psychiatric: Reports no additional psychiatric complaints and Reports as per HPI Endocrine: Endocrine: Reports no additional endocrine complaints Hematologic/Lymphatic: Hematologic/Lymphatic: Reports no additional hematologic/lymphatic complaints Allergic/Immunologic: Allergic/Immunologic: Reports no additional allergic/immunologic complaints PMFSH Past Medical History Medical History Abnormal bone scan of cervical spine CT suggest hemangioma bone scan suggest Paget's disease Abnormal bone scan of lumbar spine 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 Which has essentially resolved since chemotherapy CHF (congestive heart failure) Depression Essential hypertension H/O subarachnoid hemorrhage Hearing loss Hernia History of lymphoma Diagnosed in 2018 now in remission Hypertension Hyponatremia 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 Postoperative ileus after bladdder resection Rib fracture September 2019 SBO (small bowel obstruction) Tobacco use Surgical History Surgical History H/O total cystectomy robotic assisted bladder resection History of bilateral cataract extraction History of bilateral inguinal hernia repair History of bladder surgery resection History of prostatectomy Hx of tonsillectomy S/P robot-assisted surgical procedure Fami
[2020-01-02 05:25] LABS: Basophils Absolute Auto 0.1 K/mm3 (0.0-0.1); Basophils Percent Auto 0.7 % (0.2-1.2); Eosinophils Absolute Auto 0.3 K/mm3 (0-0.3); Eosinophils Percent Auto 3.4 % (0-4.4); Hematocrit 30.5 % (42.0-52.0); Hemoglobin 10.2 g/dL (14.0-18.0); Immature Granulocyte Absolute 0.05 K/mm3 (0.00-0.031); Immature Granulocyte Percent A 0.5 % (0-0.5); Lymphocytes Absolute Auto 2.33 K/mm3 (0.9-3.2); Lymphocytes Percent Auto 25.5 % (18.3-44.2); Mean Corpuscular HGB Conc 33.4 g/dl (32-36); Mean Corpuscular Hemoglobin 30.9 pg (26-34); Mean Corpuscular Volume 92.4 fl (80-100); Mean Platelet Volume 9.3 fl (7.4-10.4); Monocytes Absolute Auto 0.9 K/mm3 (0.1-0.6); Monocytes Percent Auto 10.1 % (2.6-8.5); Neutrophils Absolute Auto 5.5 K/mm3 (1.3-6.7); Neutrophils Percent Auto 59.8 % (45.5-73.1); Platelet Count Result 435 k/mm3 (150-375); Red Cell Distribution Width 14.8 % (11.5-14.5); White Blood Count 9.1 K/mm3 (4.5-10.0)
[2020-01-02 05:45] LABS: Alanine Aminotransferase 16 U/L (4-50); Albumin Level 2.8 g/dL (3.5-5.1); Alkaline Phosphatase 62 U/L (38-126); Aspartate Amino Transferase 22 U/L (17-59); Bilirubin,Total 0.4 mg/dL (0.2-1.3); Blood Urea Nitrogen 27 mg/dL (9-20); Calcium 8.5 mg/dL (8.4-10.2); Carbon Dioxide 29 mmol/L (22-30); Chloride 102 mmol/L (98-107); Estimated CRCL calculation 33 ml/min; Estimated Glomerular Filt Rate 33; Glucose 95 mg/dL (75-110); Potassium 3.7 mmol/L (3.4-5.0); Sodium 137 mmol/L (137-145)
[2020-01-02 06:00] VITALS: BP 169/94; PULSE 81; RESP 21; TEMP 36.1; O2SAT 100
[2020-01-02] MEDS: LACTATED RINGERS 1,000 ML 125 ML IV CONT ×3 (07:14→23:23)
--- NOTE | 2020-01-02 10:00 | PC.NURSE ---
Abd Xray showed NG tube in the proximal stomach and recommends tube advancement . Suction was stopped and I put a call out to Dr. George. Waiting for orders to advance tube and order a repeat abd xray to confirm placement.
--- NOTE | 2020-01-02 10:55 | PC.NURSE ---
Addendum entered by Jessica Carty RN 01/02/20 11:05: Advanced NG tube from [address] George's orders. Original Note: Patient tolerated tube advancement well. Restarted low intermittent suction and gave chips.
--- NOTE | 2020-01-02 12:06 | PM.IMPN ---
Progress Note: A&P Assessment and Plan (1) Partial small bowel obstruction: Code(s): K56.600 - Partial intestinal obstruction, unspecified as to cause Status: Acute Assessment and Plan: General surgery consulted and appreciate input. NG tube remains in place. Repeat KUB today with persistent small bowel gaseous dilatation suggesting small bowel obstruction but does have bowel sounds. Await further recommendations from surgery. Continue IV fluids. (2) MANDEEP (acute kidney injury): Code(s): N17.9 - Acute kidney failure, unspecified Status: Acute Assessment and Plan: Creatinine slightly higher at 2.00 today. Will continue IV fluids. Continue to monitor. (3) Hypertension: Qualifiers: Hypertension type: essential hypertension Qualified Code(s): I10 - Essential (primary) hypertension Code(s): I10 - Essential (primary) hypertension Status: Chronic Assessment and Plan: Blood pressure reviewed on 01/02/2020 and with noted elevation with SBP in 150s and DBP in 90s. Patient NPO and thus home Coreg and Entresto on hold. Will continue IV hydralazine as needed. Resume home medications when able. (4) Chemotherapy-induced peripheral neuropathy: Code(s): G62.0 - Drug-induced polyneuropathy; T45.1X5A - Adverse effect of antineoplastic and immunosuppressive drugs, initial encounter Status: Chronic Assessment and Plan: Presently stable. Home duloxetine and gabapentin on hold while NPO. (5) DVT prophylaxis: Code(s): Z29.9 - Encounter for prophylactic measures, unspecified Status: Acute Assessment and Plan: SCDs. Time Spent With Patient Time with patient: 15 - 25 minutes Subjective Date/time seen: 01/02/20 12:06 Interval history: Date of Service: 01/02/2020. Admitted with partial small bowel obstruction, acute kidney injury. Patient feels much better today. No abdominal pain. No nausea or vomiting. No chest pain. No shortness of breath. Review of Systems Review of Systems: Narrative: Feels much better. Constitutional: Constitutional: Denies chills and Denies fever(s) ENT: Comments: Dry mouth Cardiovascular: Cardiovascular: Denies chest pain Respiratory: Respiratory: Denies dyspnea Gastrointestinal: Gastrointestinal: Denies abdominal pain, Denies nausea and Denies vomiting Genitourinary: Comments: Catheter in place (ileal conduit) Musculoskeletal: Musculoskeletal: Reports no additional musculoskeletal complaints Integumentary/Breasts: Skin/Breast: Reports system reviewed and no additional complaints, except as docu Neurologic: Denies headache(s) Psychiatric: Psychiatric: Denies anxiety, Denies confusion and Denies depression Exam Narrative: Exam Narrative: Awake and alert. Const: General: no acute distress HENMT: Mouth: Yes moist mucous membranes Neck: Neck: supple Lymphatic: lymphadenopathy not noted Resp: Auscultation: clear to auscultation bilaterally, no rales and no wheezes Cardio: Rate: regular rate Rhythm: regular rhythm GI: Inspection: non-distended GI Palp: Yes Soft to palpation and No Tenderness to palpation present (GI) Auscultation: normal bowel sounds Urinary Catheter: Urinary Catheter: patent and draining and urine clear Skin: General skin exam: no rashes or lesions noted Neuro: Cognition (Neuro): normal cognition Speech: normal speech Extrem: General: no edema Psych: Mental Status: mental status grossly normal Affect: normal affect Objective Data Vital Signs Vital Signs: Vital Signs - 24 hr 01/01/20 12:18 01/01/20 12:19 01/01/20 12:20 Temperature Pulse Rate 80 107 H 117 H Respiratory Rate Blood Pressure 112/94 H 108/85 77/56 L Pulse Oximetry 01/01/20 12:29 01/01/20 12:47 01/01/20 15:13 Temperature Pulse Rate 81 74 81 Respiratory Rate 16 16 16 Blood Pressure 111/96 H 135/97 H 124/84 Pulse Oximetry 98 97 98 01/01/20 15:56 01/01/20 22:0
[2020-01-02 13:00] VITALS: BP 150/99
[2020-01-02] MEDS: hydrALAZINE HCL 20 MG/ML VIAL 10 MG IV PUSH ×2 (13:11→15:29)
[2020-01-02 14:00] VITALS: BP 150/99; PULSE 69; RESP 14; TEMP 36.8; O2SAT 97
[2020-01-02 14:46] VITALS: BP 139/101
--- NOTE | 2020-01-02 15:01 | PM.CNGS ---
Assessment and Plan Assessment and plan (1) Partial small bowel obstruction: Onset Date: ~01/01/20 Code(s): K56.600 - Partial intestinal obstruction, unspecified as to cause Status: Acute Assessment and Plan: X-ray today showed NG needed to be advanced some. The patient did not have a lot out of the NG overnight. Therefore, will begin clamping routine and give the patient some milk a magnesia down the NG tube. He still had a few dilated loops of small bowel on x-ray today so will repeat it again tomorrow. He recently had a small-bowel follow-through with did not show any obstruction so we need to look for reasons for ileus such as hyponatremia other electrolyte imbalances or constipation. He has had 2 bowel movements overnight. Hopefully this means that his ileus is resolving. (2) Chemotherapy-induced peripheral neuropathy: Onset Date: Unknown Code(s): G62.0 - Drug-induced polyneuropathy; T45.1X5A - Adverse effect of antineoplastic and immunosuppressive drugs, initial encounter Status: Chronic (3) H/O total cystectomy: Onset Date: ~08/2019 Code(s): Z90.6 - Acquired absence of other parts of urinary tract Status: Acute Assessment and Plan: May have adhesions which could cause bowel obstruction, however small-bowel follow-through just last week showed there was no true obstruction. (4) Protein calorie malnutrition: Onset Date: Unknown Code(s): E46 - Unspecified protein-calorie malnutrition Status: Chronic Additional Plan The NG aspirate appears to be quite dark. Will start Pepcid to lower acid and stomach and to Babs the stomach lining. Will give him Mylanta down the NG tube Q 6 hours Will give him milk of magnesia dry stimulate the bowels. Repeat abdominal x-ray in a.m.. History of Present Illness Consult details Consult date: 01/02/20 Reason for consult: other (Nausea and vomiting) Requesting physician: Jose Rosas MD Narrative: Duane Mayo is a 74 year old male who came to the emergency room yesterday with complaints of nausea and vomiting that started 1 day ago. The patient was last admitted here on 12/27/2019 with a possible small-bowel obstruction and a possible urinary tract infection. The patient was not sent home on any antibiotics and he was seen by infectious disease before discharge and it was felt that he did not require any antibiotics at that time. Some of this abnormality on the UA is probably related to his ileal conduit. The patient was seen by the surgical team and was conservatively treated at that time. The patient was discharged on 12/30/2019. He states they did well for the 1st 24 hours but then ate some starting sending crackers. The patient then began having bilious vomiting so much that he filled a waste basket. He has some generalized weakness and lightheadedness. He is barely got out of bed for the 24 hours before he returned. He has had some abdominal cramping. He has ileal conduit because late last year he had a cystectomy with prostatectomy for cancer of the bladder. His white count was noted to be 11.8 yesterday at the time of admission. An NG-tube was inserted for ileus versus partial bowel obstruction which was shown on plain x-rays of his abdomen in the ER yesterday. Also noted was contrast from his previous small-bowel follow-through still in the colon. The patient also has acute kidney injury with a creatinine 1.9. When he was discharged was 1.2. The patient was given Zofran and IV fluids in the emergency room. It was decided yesterday that the patient was not to be on antibiotics as it was felt that his urinary tract infection had been colonized and did not require any further antibiotics. Patient states that with the NG tube in overnight his abdomen has become flat and he is not nauseated. He is actually asking to be able to drink some liquids at this time and does not have any abdominal pain. He
--- NOTE | 2020-01-02 15:38 | PC.NURSE ---
Clamped NG tube at 1530 and began a clear liquid diet per Dr. George's orders.
[2020-01-02] MEDS: MAGNESIUM HYDROXIDE SUSP 30 ML UDC FEED TUBE (16:30)
--- NOTE | 2020-01-02 16:44 | PC.NURSE ---
Rechecked patient's blood pressure after receiving additional dose of hydralazine IV push. New result was 138/84
[2020-01-02 16:46] VITALS: BP 138/84
--- NOTE | 2020-01-02 18:36 | PC.NURSE ---
Resumed low intermittent suction. After being clamped for 3 hours patient seems to be tolerating clear liquid and ice chips well. No complaints of nausea or vomiting.
[2020-01-02] MEDS: MAG HYDROX/AL HYDROX/SIMETH 30 ML UDC FEED TUBE (21:36)
[2020-01-02] MEDS: FAMOTIDINE 20 MG/2 ML VIAL IV PUSH (21:37)
[2020-01-02 22:54] VITALS: BP 112/77; PULSE 85; RESP 21; TEMP 36.4; O2SAT 100
[2020-01-03] MEDS: MAG HYDROX/AL HYDROX/SIMETH 30 ML UDC FEED TUBE ×4 (03:10→20:40)
[2020-01-03 05:43] LABS: Hemoglobin 9.2 g/dL (14.0-18.0); Mean Corpuscular HGB Conc 32.9 g/dl (32-36); Mean Corpuscular Hemoglobin 30.4 pg (26-34); Mean Corpuscular Volume 92.4 fl (80-100); Platelet Count Result 385 k/mm3 (150-375); Red Blood Count 3.03 M/mm3 (4.6-6.20); White Blood Count 7.5 K/mm3 (4.5-10.0)
[2020-01-03 05:48] LABS: Blood Urea Nitrogen 21 mg/dL (9-20); Calcium 7.8 mg/dL (8.4-10.2); Carbon Dioxide 24 mmol/L (22-30); Chloride 101 mmol/L (98-107); Estimated CRCL calculation 54 ml/min; Estimated Glomerular Filt Rate 59; Glucose 86 mg/dL (75-110); Magnesium 1.8 mg/dL (1.6-2.3); Potassium 3.2 mmol/L (3.4-5.0); Sodium 130 mmol/L (137-145)
[2020-01-03 06:00] VITALS: BP 152/93; PULSE 73; RESP 20; TEMP 36.9; O2SAT 98
[2020-01-03 08:00] VITALS: PULSE 73; RESP 20; O2SAT 98
[2020-01-03] MEDS: FAMOTIDINE 20 MG/2 ML VIAL IV PUSH ×2 (09:02→20:44)
[2020-01-03] MEDS: MAGNESIUM HYDROXIDE SUSP 30 ML UDC FEED TUBE (09:05)
--- NOTE | 2020-01-03 11:02 | PM.IMPN ---
Progress Note: A&P Assessment and Plan (1) Partial small bowel obstruction: Onset Date: ~01/01/20 Code(s): K56.600 - Partial intestinal obstruction, unspecified as to cause Status: Acute Assessment and Plan: General surgery consulted and appreciate input. NG tube remains in place. Repeat KUB today improvement noted. Discussed with Dr. George. Plan to clamp NG tube this morning. Will receive milk of magnesia. Hopefully will start clear liquids this afternoon if able to remove NG tube. Will continue IV fluids for now. Continue to monitor. (2) MANDEEP (acute kidney injury): Code(s): N17.9 - Acute kidney failure, unspecified Status: Acute Assessment and Plan: Result of dehydration. Creatinine back down to 1.20 today. Will continue to monitor. (3) Hypertension: Qualifiers: Hypertension type: essential hypertension Qualified Code(s): I10 - Essential (primary) hypertension Code(s): I10 - Essential (primary) hypertension Status: Chronic Assessment and Plan: Blood pressure reviewed on 01/03/2020 with some elevated readings. Home Coreg and Entresto are on hold while NPO but will resume when able. Continue IV hydralazine as needed. Will monitor. (4) Hypokalemia: Code(s): E87.6 - Hypokalemia Status: Acute Assessment and Plan: Potassium 3.2 today with IV replacement given. Will continue to monitor and replace as needed. (5) Chemotherapy-induced peripheral neuropathy: Onset Date: Unknown Code(s): G62.0 - Drug-induced polyneuropathy; T45.1X5A - Adverse effect of antineoplastic and immunosuppressive drugs, initial encounter Status: Chronic Assessment and Plan: Remains stable. Home duloxetine and gabapentin remain on hold while NPO. (6) DVT prophylaxis: Code(s): Z29.9 - Encounter for prophylactic measures, unspecified Status: Acute Assessment and Plan: SCDs. Time Spent With Patient Time with patient: 15 - 25 minutes Subjective Date/time seen: 01/03/20 11:02 Interval history: Date of Service: 01/03/2020. Admitted with partial small bowel obstruction, acute kidney injury. No abdominal pain. No nausea or vomiting. No chest pain. No shortness of breath. Review of Systems Constitutional: Constitutional: Denies chills and Denies fever(s) ENT: Denies headache(s) Cardiovascular: Cardiovascular: Denies chest pain Respiratory: Respiratory: Denies dyspnea Gastrointestinal: Gastrointestinal: Denies abdominal pain, Denies nausea and Denies vomiting Musculoskeletal: Musculoskeletal: Reports no additional musculoskeletal complaints Integumentary/Breasts: Skin/Breast: Reports system reviewed and no additional complaints, except as docu Neurologic: Denies headache(s) Psychiatric: Psychiatric: Denies anxiety, Denies confusion and Denies depression Exam Narrative: Exam Narrative: Awake and alert. Const: General: no acute distress HENMT: Mouth: Yes moist mucous membranes Neck: Neck: supple Lymphatic: lymphadenopathy not noted Resp: Auscultation: clear to auscultation bilaterally, no rales and no wheezes Cardio: Rate: regular rate Rhythm: regular rhythm GI: Inspection: non-distended Auscultation: normal bowel sounds Urinary Catheter: Urinary Catheter: patent and draining and urine clear Skin: General skin exam: no rashes or lesions noted Neuro: General: No confusion Cognition (Neuro): normal cognition Speech: normal speech Extrem: General: no edema Psych: Mental Status: mental status grossly normal Affect: normal affect Objective Data Vital Signs Vital Signs: Vital Signs - 24 hr 01/02/20 13:00 01/02/20 14:00 01/02/20 14:46 Temperature 98.2 F Pulse Rate 69 Respiratory Rate 14 Blood Pressure 150/99 H 150/99 H 139/101 H Pulse Oximetry 97 01/02/20 16:46 01/02/20 22:54 01/03/20 06:00 Temperature 97.5 F L 98.4 F Pulse Rate 85 73 Respiratory
--- NOTE | 2020-01-03 11:17 | PCPTNOTE ---
Attempted PT eval. Pt refused, stated he had not slept and had too many things to do, so could not do therapy. Encouraged pt to participate w/ therapy and he still refused. Will try again at later time.
[2020-01-03] MEDS: LACTATED RINGERS 1,000 ML 125 ML IV CONT ×2 (11:30→23:52)
--- NOTE | 2020-01-03 11:33 | PCOTNOTE ---
OT evaluation attempted this AM. Patient refusing therapy at this time stating that he is too tired and does not want to participate.
--- NOTE | 2020-01-03 13:49 | PCPTNOTE ---
Attempted PT eval. Pt refused, stated he's going to take a shower and can't do therapy today. Will try again tomorrow.
--- NOTE | 2020-01-03 13:54 | PCOTNOTE ---
Attempted OT evaluation. Pt refused, stating he's going to take a shower and won't do therapy today. Patient encouraged to participate in therapy and OT offering to assist with shower, however, patient adamantly refused. Will attempt OT evaluation again tomorrow.
[2020-01-03 14:38] VITALS: BMI 20.4
[2020-01-03 14:45] VITALS: PULSE 79; RESP 18; TEMP 36.4; O2SAT 100
[2020-01-03 15:01] VITALS: BP 114/78
--- NOTE | 2020-01-03 16:36 | PM.PNGS ---
Progress Note: A&P Assessment and Plan (1) Partial small bowel obstruction: Onset Date: ~01/01/20 Code(s): K56.600 - Partial intestinal obstruction, unspecified as to cause Status: Acute Assessment and Plan: X-ray today shows improvement in small bowel dilation. Patient clinically improving. Bowels are moving. Patient tolerated the NG clamping trial well and NG tube was removed today. Clear liquid diet today and will slowly advance as tolerated to a soft diet. (2) Chemotherapy-induced peripheral neuropathy: Onset Date: Unknown Code(s): G62.0 - Drug-induced polyneuropathy; T45.1X5A - Adverse effect of antineoplastic and immunosuppressive drugs, initial encounter Status: Chronic (3) H/O total cystectomy: Onset Date: ~08/2019 Code(s): Z90.6 - Acquired absence of other parts of urinary tract Status: Acute Assessment and Plan: May have adhesions which could cause bowel obstruction, however small-bowel follow-through just last week showed there was no true obstruction. (4) Protein calorie malnutrition: Onset Date: Unknown Code(s): E46 - Unspecified protein-calorie malnutrition Status: Chronic Additional Plan Discussed plan of care with Dr. George. Subjective Subjective Date/Time Seen: 01/03/20 13:36 Patient reports: no new complaints, feels better, flatus and bowel movement Interval history: Patient reports feeling well today. Tolerating clear liquids. Reports flatus and BM today x 1. Denies nausea, vomiting, or bloating. No other complaints at this time. Review of Systems Review of Systems: All systems reviewed & are unremarkable except as noted in HPI and below Exam Const: General: comfortable, no acute distress, alert and awake Orientation/consciousness: patient oriented x3 GI: Inspection: normal to inspection and non-distended GI Palp: No abdominal tenderness, Yes Soft to palpation, No Guarding due to palpation present (GI) and Yes Other GI palpation findings present (right-sided ileal conduit with clear yellow urine in bag) Auscultation: normal bowel sounds Skin: General skin exam: normal color Lesions: no lesions Rashes: no rashes Neuro: General: patient oriented x3, moves all extremities and no focal motor deficits Extrem: General: no edema Psych: Appearance: grossly normal Mental Status: mental status grossly normal Objective Data Vital Signs Vital Signs: Vital Signs - 24 hr 01/02/20 16:46 01/02/20 22:54 01/03/20 06:00 Temperature 36.4 C L 36.9 C Pulse Rate 85 73 Respiratory Rate 21 H 20 Blood Pressure 138/84 112/77 152/93 H Pulse Oximetry 100 98 01/03/20 08:00 01/03/20 14:45 01/03/20 15:01 Temperature 36.4 C L Pulse Rate 73 79 Respiratory Rate 20 18 Blood Pressure 114/78 Pulse Oximetry 98 100 Intake/Output Intake/Output: Intake & Output 12/31/19 01/01/20 01/02/20 01/03/20 23:59 23:59 23:59 23:59 Intake Total 3000 3560 2240 Output Total 2200 2500 Balance 3000 1360 -260 Meds/Results Medications: Active Medications Generic Name Dose Route Start Last Admin Trade Name Freq PRN Reason Stop Dose Admin Al Hydrox/Mg Hydrox/Simethicone 30 ml 01/02/20 21:00 01/03/20 14:32 Mylanta FEED TUBE 30 ml Q6H MONICA Administration Famotidine 20 mg 01/02/20 21:00 01/03/20 09:02 Pepcid Iv IV PUSH 20 mg Q12HR MONICA Administration Fentanyl Citrate 25 mcg 01/01/20 20:31 Sublimaze IV PUSH Q4H PRN Pain Rated 7-10 Hydralazine HCl 10 mg 01/01/20 20:30 01/02/20 13:11 Apresoline Hcl Inj IV PUSH 10 mg Q8H PRN Administration Blood Pressure - High>160/90 Lactated Ringer's 1,000 mls @ 125 mls/hr 01/01/20 13:40 01/03/20 11:30 Lr - Lactated Ringers Iv IV CONT 125 mls/hr .Q8H MONICA Administration Ondansetron HCl 4 mg 01/01/20 13:40 Zofran Inj IV PUSH Q4H PRN Nausea Radiology Results: ITS Impressions Chest X-Ray 01/01/20
[2020-01-03 21:56] VITALS: BP 125/81; PULSE 84; RESP 16; TEMP 36.9; O2SAT 100
[2020-01-03] MEDS: NICOTINE (*PBKC) 2 MG GUM PO (23:14)
[2020-01-04] MEDS: MAG HYDROX/AL HYDROX/SIMETH 30 ML UDC FEED TUBE ×2 (03:18→08:28)
[2020-01-04 05:58] LABS: Blood Urea Nitrogen 14 mg/dL (9-20); Calcium 8.3 mg/dL (8.4-10.2); Carbon Dioxide 25 mmol/L (22-30); Chloride 102 mmol/L (98-107); Estimated CRCL calculation 50 ml/min; Estimated Glomerular Filt Rate 54; Glucose 96 mg/dL (75-110); Magnesium 1.9 mg/dL (1.6-2.3); Potassium 3.1 mmol/L (3.4-5.0); Sodium 131 mmol/L (137-145)
[2020-01-04 05:59] VITALS: BP 154/89; PULSE 65; RESP 16; TEMP 36.4; O2SAT 97
[2020-01-04 08:00] VITALS: PULSE 65; RESP 16; O2SAT 97
--- NOTE | 2020-01-04 08:24 | PM.IMPN ---
Progress Note: A&P Assessment and Plan (1) Partial small bowel obstruction: Onset Date: ~01/01/20 Code(s): K56.600 - Partial intestinal obstruction, unspecified as to cause Status: Acute Assessment and Plan: General surgery consulted and appreciate input. NG tube removed yesterday. Patient much improved. Having bowel movements. Tolerating diet. Would like to go home. Discussed with Dr. George already this morning. Will discharge home with bowel regimen. (2) MANDEEP (acute kidney injury): Code(s): N17.9 - Acute kidney failure, unspecified Status: Resolved Assessment and Plan: Result of dehydration. Creatinine now normal and stable at 1.30. Follow as outpatient. (3) Hypertension: Qualifiers: Hypertension type: essential hypertension Qualified Code(s): I10 - Essential (primary) hypertension Code(s): I10 - Essential (primary) hypertension Status: Chronic Assessment and Plan: Blood pressure reviewed on 01/04/2020 with occasional elevated reading. Will resume Coreg and Entresto at discharge. (4) Hypokalemia: Code(s): E87.6 - Hypokalemia Status: Acute Assessment and Plan: Potassium 3.1 this morning. Will give oral replacement before discharge. Recheck as outpatient. Anticipate should correct with normalization of diet. (5) Chemotherapy-induced peripheral neuropathy: Onset Date: Unknown Code(s): G62.0 - Drug-induced polyneuropathy; T45.1X5A - Adverse effect of antineoplastic and immunosuppressive drugs, initial encounter Status: Chronic Assessment and Plan: Remains stable. Home duloxetine and gabapentin remain on hold while NPO. (6) DVT prophylaxis: Code(s): Z29.9 - Encounter for prophylactic measures, unspecified Status: Acute Assessment and Plan: SCDs. Subjective Date/time seen: 01/04/20 08:24 Interval history: Date of Service: 01/04/2020. Admitted with partial small bowel obstruction, acute kidney injury. Feeling better. Having bowel movements. Wants to go home now. No abdominal pain. No nausea or vomiting. No chest pain. No shortness of breath. Review of Systems Review of Systems: Narrative: Feeling better. Wants to go home. Constitutional: Constitutional: Denies chills and Denies fever(s) ENT: Denies sore throat Cardiovascular: Cardiovascular: Denies chest pain Respiratory: Respiratory: Denies dyspnea Gastrointestinal: Gastrointestinal: Denies abdominal pain, Denies nausea and Denies vomiting Musculoskeletal: Musculoskeletal: Reports no additional musculoskeletal complaints Integumentary/Breasts: Skin/Breast: Reports system reviewed and no additional complaints, except as docu Neurologic: Denies headache(s) Psychiatric: Psychiatric: Denies anxiety, Denies confusion and Denies depression Exam Narrative: Exam Narrative: Awake and alert. Const: General: no acute distress HENMT: Mouth: Yes moist mucous membranes Neck: Neck: supple Lymphatic: lymphadenopathy not noted Resp: Auscultation: clear to auscultation bilaterally, no rales and no wheezes Cardio: Rate: regular rate Rhythm: regular rhythm GI: Inspection: non-distended GI Palp: Yes Soft to palpation and No Tenderness to palpation present (GI) Auscultation: normal bowel sounds Urinary Catheter: Urinary Catheter: patent and draining, urine clear and other (ileal conduit) Skin: General skin exam: no rashes or lesions noted Neuro: General: No confusion Cognition (Neuro): normal cognition Speech: normal speech Extrem: General: no edema Psych: Mental Status: mental status grossly normal Affect: normal affect Objective Data Vital Signs Vital Signs: Vital Signs - 24 hr 01/03/20 14:45 01/03/20 15:01 01/03/20 21:56 Temperature 97.5 F L 98.4 F Pulse Rate 79 84 Respiratory Rate 18 16 Blood Pressure 114/78 125/81 Pulse Oximetry 100 100 01/04/20 05:59 Temperature 9
[2020-01-04] MEDS: POTASSIUM CHLORIDE 20 MEQ TABLET 40 MEQ PO (08:29)
--- NOTE | 2020-01-04 17:02 | PM.DS ---
DS: Diagnosis Admitting Diagnosis Admitting Diagnosis: Partial intestinal obstruction, unspecified as to cause Discharge Diagnosis (1) Partial small bowel obstruction: Onset Date: ~01/01/20 Code(s): K56.600 - Partial intestinal obstruction, unspecified as to cause Status: Acute (2) MANDEEP (acute kidney injury): Code(s): N17.9 - Acute kidney failure, unspecified Status: Resolved (3) Hypertension: Qualifiers: Hypertension type: essential hypertension Qualified Code(s): I10 - Essential (primary) hypertension Code(s): I10 - Essential (primary) hypertension Status: Chronic (4) Hypokalemia: Code(s): E87.6 - Hypokalemia Status: Acute (5) Chemotherapy-induced peripheral neuropathy: Onset Date: Unknown Code(s): G62.0 - Drug-induced polyneuropathy; T45.1X5A - Adverse effect of antineoplastic and immunosuppressive drugs, initial encounter Status: Chronic DS: Summary Hospital Course Reason for hospitalization: Nausea and vomiting. Hospital Course: Date of Service of Discharge: January 04, 2020. History of Present Illness: Patient is a 74-year-old gentleman recently hospitalized for small bowel obstruction with possible urinary tract infection discharged on 12/30/2019 who returned to the emergency room with complaint of nausea and vomiting x1 day. Patient was not sent home on antibiotics as he was seen by infectious disease with no antibiotics felt necessary given patient's ileal conduit. He was eating and having bowel movements prior to discharge. Unfortunately, shortly after returning home patient abdominal cramping along with nausea and vomiting. He was unable to keep down food. He reports generalized weakness and feeling lightheaded. As result, he returned to the emergency room with imaging consistent with partial small-bowel obstruction. General surgery was consulted. Patient was admitted for further evaluation and treatment. Course in Hospital: Patient was placed on the medical floor where he remained for the duration of his stay. Initially he was made NPO with NG tube in place. He was started on IV fluids with IV Zofran available. Patient very rapidly improved with conservative measures. Within the 1st 24 hours he was already having bowel sounds. Repeat imaging did show improvement. Patient then had NG tube clamped on the morning of 01/03/2020. He subsequently was noted not to have significant residual an NG tube was removed on the afternoon of 01/03/2020. He was then started on clear liquids which he tolerated well. Patient also was given milk of magnesia when NG tube was still in place and did have resultant bowel movements. By the morning of 01/04/2020, patient was feeling back to normal and very eager for discharge. He was actually insistent on discharge in the morning. Patient was noted to have slightly low potassium on both 01/03/2020 and 01/04/2020. He was given oral replacement. Plan to recheck as an outpatient with feeling that potassium would normalize with return of regular diet. His home duloxetine and gabapentin were on hold during his stay due to his initial NPO status with plan to resume at discharge. With the patient improved and stable, he was discharged home on the morning of January 04, 2020. Status at Discharge Cognitive/behavioral status at discharge: Stable. Functional status at discharge: independent ambulation Overall status at discharge: patient is back to baseline Time Spent with Patient Time attestation: Total time spent providing and/or coordinating discharge services: 40 minutes. Time spent: Greater than 30 minutes Exam Narrative: Exam Narrative: Vital Signs Temp Pulse Resp BP Pulse Ox 98.5 F 116 H 16 92/60 L 100 01/01/20 10:05 01/01/20 10:05 01/01/20 10:05 01/01/20 10:05 0
== END 2020-01-04 08:37 | disposition home health service (06) | DRG 389 ==
LOC: ANHED 14:16 → ANH2MED 16:23
PROVIDERS: Admitting Provider Internal Medicine; Emergency Provider General Practice; PCP Internal Medicine; Visit Provider Hospitalist
DX: K56.600 Partial intestinal obstruction, unspecified as to cause (principal); N17.9 Acute kidney failure, unspecified; E46 Unspecified protein-calorie malnutrition; Z92.21 Personal history of antineoplastic chemotherapy; G62.0 Drug-induced polyneuropathy; T45.1X5A Adverse effect of antineoplastic and immunosuppressive drugs, initial encounter; Z85.51 Personal history of malignant neoplasm of bladder; I11.0 Hypertensive heart disease with heart failure; I50.9 Heart failure, unspecified; F32.9 Major depressive disorder, single episode, unspecified; H91.90 Unspecified hearing loss, unspecified ear; Z85.72 Personal history of non-Hodgkin lymphomas; I10 Essential (primary) hypertension; F17.200 Nicotine dependence, unspecified, uncomplicated; Z90.6 Acquired absence of other parts of urinary tract; Z98.41 Cataract extraction status, right eye; Z98.42 Cataract extraction status, left eye; E86.0 Dehydration; Z68.20 Body mass index [BMI] 20.0-20.9, adult; Z90.79 Acquired absence of other genital organ(s); E87.6 Hypokalemia
CPT/HCPCS: 36415; 71046; 74019; 80048; 80053; 81001; 83605; 83690; 83735; 85025; 85027; 87086; 87088; 96361; 96374; 96376; 99285; A9270; J0360; J2405; J3480; J7030; J7120

== ENCOUNTER 2020-01-15 21:53 | Inpatient (IN) | payer OTHER, SELFPAY ==
--- NOTE | ~2020-01-15 | XR_ITS ---
EXAMINATION: XR chest 2V DATE: 01/21/2020 10:39 INDICATION: Dyspnea on exertion. TECHNIQUE: frontal and lateral views of the chest were obtained. COMPARISON: Chest radiograph dated 01/01/2020 FINDINGS: The lungs remain clear with no focal airspace opacities, pulmonary edema, pleural effusion or pneumot horax. The cardiomediastinal silhouette is normal. Several old right rib fractures. IMPRESSION: 1. No acute cardiopulmonary disease. Reviewed, dictated and finalized at location B.
--- NOTE | ~2020-01-15 | XR_ITS ---
EXAMINATION: XR abdomen NG/feed tube insert DATE: 01/16/2020 00:36 INDICATION: Nasogastric tube placement TECHNIQUE: A supine view of the abdomen and lower chest was obtained for evaluation of feeding tube placement. COMPARISON: CT abdomen and pelvis dated 01/15/2020 FINDINGS: Nasogastric tube tip in proximal side port in the body of the stomach. Persistent dilated small bowel in the upper abdomen consistent with bowel obstruction. Postoperative changes including an ostomy in the right lower quadrant. Visualized lung bases are clear. Healing right-sided rib fractures. Heart size is normal. IMPRESSION: 1. Is a gastric tube in the stomach. 2. Small bowel obstruction. Reviewed, dictated and finalized at location A.
--- NOTE | ~2020-01-15 | CT_ITS ---
EXAMINATION: CT abdomen pelvis w con DATE: 01/15/2020 23:11 INDICATION: Abdominal pain and vomiting. Nausea and vomiting. TECHNIQUE: Computed tomography (CT) of the abdomen and pelvis was performed with 100 mL Omnipaque-350 intravenous contrast. Automated exposure control and iterative reconstruction technique were employe d. The dose-length product was 483.33 mGy-cm. COMPARISON: 12/26/2019 FINDINGS: Lung bases are clear. Heart size is normal. No pericardial or pleural effusion. Small sliding-type hi atal hernia. Prominent circumferential edematous wall thickening the distal esophagus consistent with esophagitis. Multiple hepatic cysts including a 10.1 cm cyst in the left hepatic lobe. Gallbladder, spleen, pancreas and bilateral adrenal glands are normal. Multiple cysts scattered cortical scarring at both kidneys. 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 Postoperative change of prior cystectomy and prostatectomy with right lower quadrant ileal conduit. S mall bowel obstruction with multiple dilated loops of fluid-filled distal jejunum and proximal ileum measuring up to 5.5 cm in diameter. Transition point is again seen is a small bowel volvulus where th e bowel makes an approximately 540 degree swirl in the anterior abdomen located slightly to the right of the umbilicus. The more distal ileum including the site of the small bowel anastomosis is relativ myron decompressed. Mild mesenteric edema and suggestion of mild wall thickening of the small bowel in the region of the obstruction. No pneumatosis. Small amount of stool scattered throughout the colon. Small amount of ascites in the pelvis. No free intraperitoneal gas. No pathologically enlarged abdomi nal or pelvic lymphadenopathy. There is calcified atherosclerosis of the aorta and many of the other arteries. There is calcified atherosclerosis of the aorta and many of the other arteries. No signific ant interval change in diffuse sclerosis throughout the L2 vertebral body, the right innominate bone and medial side of the left innominate bone. Nondisplaced chronic fracture of the right transverse pr ocesses of L1-L3. L1 now appears fused with the fracture at L2 and L3 appear to remain ununited. IMPRESSION: 1. Small bowel obstruction which appears to be related to volvulus with swirled appearance to the sma ll bowel at the transition point. 2. Mild mesenteric edema and wall thickening of the small bowel near the transition point which raise s the possibility of ischemia. Consider correlation with lactate levels. 3. Small sliding-type hiatal hernia with persistent prominent wall thickening the distal esophagus. T his could be related to reflux but if not previously performed would recommend endoscopy for further evaluation. 4. Unchanged sclerosis at L2 and at the left and right innominate bones which could be related to Pag et's disease or metastatic disease. The absence of appreciable increased FDG uptake on an earlier bon e scan would argue against metastatic disease. Reviewed, dictated and finalized at location A. IMPRESSION: 1. Small bowel obstruction which appears to be related to volvulus with swirled appearance to the small bowel at the transition point. 2. Mild mesenteric edema and wall thickening of the small bowel near the transi tion point which raises the possibility of ischemia. Consider correlation with lactate levels. 3. Small sliding-type hiatal hernia with persistent prominent wall thickening t he distal esophagus. This could be related to reflux but if not previously perf ormed would recommend endoscopy for further evaluation. 4. Unchanged sclerosis at L2 and at the left and right innominate bones which c ould be related to Paget's disea
--- NOTE | 2020-01-15 21:58 | ED.NAVMDI ---
HPI - Nausea/Vomiting/Diarrhea General Chief complaint: Nausea/Vomiting/Diarrhea Stated complaint: vomiting Time Seen by Provider: 01/15/20 21:55 Source: patient and RN notes reviewed Mode of arrival: ambulatory Limitations: no limitations History of Present Illness HPI Narrative: A 74 y/o male, with a hx of SBO, presents to the ED with severe N/V beginning today. He states that he is vomiting up bile. He reports associated intermittent sharp upper ABD pain, generalized weakness, and a decreased appetite. He notes that this is the third time he has been to the ED recently for similar symptoms. He also notes that he had a normal BM this morning. He denies any ABD distention, constipation, diarrhea, fevers, or chills. MD elicited complaint: nausea and vomiting Pertinent past history: bowel obstruction and abdominal surgery Description of vomiting: bilious Associated nausea: Yes Associated abdominal pain: Yes Location of pain: other (upper) Pain consistency: intermittent Quality: sharp Context: recent surgery/procedure and history of abdominal surgery Associated symptoms: other (generalized weakness and decreased appetite) Related Data Home Medications Medication Instructions Recorded Confirmed carvedilol 25 mg PO BID 08/30/19 01/16/20 gabapentin 300 mg capsule 300 mg PO HS cap 08/31/19 01/16/20 aspirin [Aspir-81] 81 mg PO DAILY 09/24/19 01/16/20 Allergies Allergy/AdvReac Type Severity Reaction Status Date / Time No Known Allergies Allergy Unknown Verified 01/15/20 22:05 Review of Systems Review of Systems: All systems reviewed & are unremarkable except as noted in HPI and below Constitutional: Constitutional: Denies chills, Denies fever(s), Reports poor appetite and Reports weakness (generalized) Gastrointestinal: Gastrointestinal: Reports abdominal pain (intermittent upper), Denies constipation, Denies diarrhea, Reports nausea, Reports vomiting (bilious) and Denies other (ABD distention) PMFSH Past Medical History Medical History Abnormal bone scan of cervical spine CT suggest hemangioma bone scan suggest Paget's disease Abnormal bone scan of lumbar spine 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) Which has essentially resolved since chemotherapy CHF (congestive heart failure) Depression Essential hypertension H/O subarachnoid hemorrhage Hearing loss Hernia History of lymphoma Diagnosed in 2018 now in remission Hypertension Hyponatremia 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 Postoperative ileus after bladdder resection Rib fracture September 2019 SBO (small bowel obstruction) Tobacco use Surgical History Surgical History H/O total cystectomy (~08/2019) robotic assisted bladder resection History of bilateral cataract extraction History of bilateral inguinal hernia repair History of bladder surgery resection History of prostatectomy Hx of tonsillectomy S/P robot-assisted surgical procedure Family History Family History Father Patient's father is Chronic obstructive pulmonary disease Mother Patient's mother is Cerebrovascular accident Hypercholesterolemia Sibling Epiglottitis Social History Social History Social History: The patient has traveled all over but not recently. He is not interested in smoking cessation at this time. He is and lives alone. He has 3 children. Primary care physician: Dr. Jamey Brooks Code status: DNR per patient request Smoking packs per day: 1 Smoking cigarettes per day: 20.0 Years smoked: 19 Smoking pack-years: 19.00 Smoking status: Current every day smoker Tobacco type: cigarettes Second hand tobacco smoke exposure: Yes Additional smoking
[2020-01-15 21:59] VITALS: BP 113/92; PULSE 103; RESP 21; TEMP 36.5; O2SAT 97
[2020-01-15 22:16] LABS: Basophils Absolute Auto 0.1 K/mm3 (0.0-0.1); Basophils Percent Auto 0.5 % (0.2-1.2); Eosinophils Absolute Auto 0.5 K/mm3 (0-0.3); Eosinophils Percent Auto 3.6 % (0-4.4); Hematocrit 39.2 % (42.0-52.0); Hemoglobin 12.8 g/dL (14.0-18.0); Immature Granulocyte Absolute 0.03 K/mm3 (0.00-0.031); Immature Granulocyte Percent A 0.2 % (0-0.5); Lymphocytes Percent Auto 17.2 % (18.3-44.2); Mean Corpuscular HGB Conc 32.7 g/dl (32-36); Mean Corpuscular Volume 91.8 fl (80-100); Mean Platelet Volume 9.3 fl (7.4-10.4); Monocytes Absolute Auto 0.7 K/mm3 (0.1-0.6); Monocytes Percent Auto 5.8 % (2.6-8.5); Neutrophils Absolute Auto 9.3 K/mm3 (1.3-6.7); Neutrophils Percent Auto 72.7 % (45.5-73.1); Platelet Count Result 459 k/mm3 (150-375); Red Blood Count 4.27 M/mm3 (4.6-6.20); Red Cell Distribution Width 15.8 % (11.5-14.5); White Blood Count 12.8 K/mm3 (4.5-10.0)
[2020-01-15] MEDS: SODIUM CHLORIDE 0.9% IV 1,000 ML 999 ML IV CONT (22:25)
[2020-01-15] MEDS: ONDANSETRON INJ 4 MG/2 ML VIAL IV PUSH (22:25)
[2020-01-15] MEDS: MORPHINE SULFATE 4 MG/ML INJ IV PUSH (22:25)
[2020-01-15 22:28] LABS: Alanine Aminotransferase 11 U/L (4-50); Albumin Level 3.6 g/dL (3.5-5.1); Alkaline Phosphatase 84 U/L (38-126); Aspartate Amino Transferase 16 U/L (17-59); Bilirubin,Total 0.5 mg/dL (0.2-1.3); Blood Urea Nitrogen 16 mg/dL (9-20); Calcium 9.5 mg/dL (8.4-10.2); Carbon Dioxide 17 mmol/L (22-30); Chloride 104 mmol/L (98-107); Estimated CRCL calculation 46 ml/min; Estimated Glomerular Filt Rate 46; Glucose 152 mg/dL (75-110); Potassium 3.9 mmol/L (3.4-5.0); Sodium 132 mmol/L (137-145)
[2020-01-16] MEDS: MORPHINE SULFATE 4 MG/ML INJ IV PUSH ×3 (00:06→20:03)
[2020-01-16 00:11] VITALS: BP 113/68; PULSE 90; RESP 16; O2SAT 100
[2020-01-16] MEDS: LIDOCAINE HCL 2% GEL UROJET 10 ML PKG (00:13)
[2020-01-16 01:26] VITALS: BMI 21.8
[2020-01-16 01:27] VITALS: BP 122/92; PULSE 83; RESP 16; TEMP 36.1; O2SAT 93
[2020-01-16] MEDS: LACTATED RINGERS 1,000 ML 150 ML IV CONT (01:35)
[2020-01-16 01:52] LABS: Add Urine Microscopic? YES; Appearance Urine Cloudy (Clear); Bacteria Urine Trace /hpf; Bilirubin Urine Negative (Negative); Blood Urine Negative (Negative); Color Urine Yellow (Yellow); Glucose Urine UA Negative (Negative); Ketones Urine Trace mg/dL (Negative); Leukocyte Esterase Ur 3+ LEU/UL (Negative); Mucus Urine Rare /lpf; Nitrate Urine Negative (Negative); Protein Urine 2+ mg/dL (Negative); Specific Grav Ur 1.043 (1.001-1.035); Squamous Epithelial Cell Urine Rare /hpf (Few); Urobilinogen Urine Negative mg/dL (<2.0); WBC Urine 31-50 /hpf
--- NOTE | 2020-01-16 02:24 | PM.IMHP ---
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 He describes eating some croissants this morning and around 2 pm he started to experience significant diffuse abdominal pain. A few hours later he began to experience nausea and vomiting. He denies any abdominal distension. He last had a normal bowel movement yesterday morning. The patient states that his symptoms are consistent with similar symptoms when he last had a bowel obstruction. He denies any fever, chills, shortness of breath, chest pain or cough. CT abd/pelvis was performed in the ER tonight and demonstrated another possible partial bowel obstruction. General surgery has been consulted by ER provider and NG tube has been placed in the ER. The patient has no other complaints at this time and his nausea and vomiting has subsided. 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) Which has essentially resolved since chemotherapy CHF (congestive heart failure) Depression Essential hypertension H/O subarachnoid hemorrhage Hearing loss Hernia History of lymphoma Diagnosed in 2018 now in remission Hypertension Hyponatremia 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 Postoperative ileus after bladdder resection Rib fracture September 2019 SBO (small bowel obstruction) Tobacco use Surgical History Surgical History H/O total cystectomy (~08/2019) robotic assisted bladder resection History of bilateral cataract extraction History of bilateral inguinal hernia repair History of bladder surgery resection History of prostatectomy Hx of tonsillectomy S/P robot-assisted surgical procedure Family History Family History Father Patient's father is Chronic obstructive pulmonary disease Mother Patient's mother is Cerebrovascular accident Hypercholesterolemia Sibling Epiglottitis Social History Social History Social History: The patient has traveled all over but not recently. He is not interested in smoking cessation at this time. He is and lives alone. He has 3 children. Primary care physician: Dr. Jamey Brooks Code status: DNR per patient request Smoking packs per day: 1 Smoking cigarettes per day: 20.0 Years smoked: 19 Smoking pack-years: 19.00 Smoking status: Current every day smoker Tobacco type: cigarettes Second hand tobacco smoke exposure: Yes Additional smoking assessment comments: The patient started smoking when he retired of 55 years of age. Alcohol intake: former Drinks per week: 3 Substance use: never Substance use type: does not use Additional living arrangements comments: He is and lives in his own home. He has 4 dogs and 4 cats. He has someone who comes and cleans his house every week. 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 He retired at 55 years of age. After [facility] he moved down to [place] and returned to the [place] years ago when he developed lymphoma. Gender identity (if verbalized by the patient): Male Spiritual care concerns: No
[2020-01-16 05:45] LABS: Basophils Percent Auto 0.3 % (0.2-1.2); Eosinophils Absolute Auto 0.1 K/mm3 (0-0.3); Eosinophils Percent Auto 1.7 % (0-4.4); Hematocrit 35.1 % (42.0-52.0); Hemoglobin 11.9 g/dL (14.0-18.0); Immature Granulocyte Absolute 0.02 K/mm3 (0.00-0.031); Immature Granulocyte Percent A 0.3 % (0-0.5); Lymphocytes Absolute Auto 1.34 K/mm3 (0.9-3.2); Lymphocytes Percent Auto 18.7 % (18.3-44.2); Mean Corpuscular HGB Conc 33.9 g/dl (32-36); Mean Corpuscular Hemoglobin 30.1 pg (26-34); Mean Corpuscular Volume 88.6 fl (80-100); Mean Platelet Volume 9.3 fl (7.4-10.4); Monocytes Absolute Auto 0.5 K/mm3 (0.1-0.6); Monocytes Percent Auto 7.5 % (2.6-8.5); Neutrophils Absolute Auto 5.1 K/mm3 (1.3-6.7); Neutrophils Percent Auto 71.5 % (45.5-73.1); Platelet Count Result 421 k/mm3 (150-375); Red Blood Count 3.96 M/mm3 (4.6-6.20); Red Cell Distribution Width 15.5 % (11.5-14.5); White Blood Count 7.2 K/mm3 (4.5-10.0)
[2020-01-16 05:55] LABS: Blood Urea Nitrogen 19 mg/dL (9-20); Calcium 9.1 mg/dL (8.4-10.2); Carbon Dioxide 22 mmol/L (22-30); Chloride 106 mmol/L (98-107); Estimated CRCL calculation 47 ml/min; Estimated Glomerular Filt Rate 46; Glucose 118 mg/dL (75-110); Potassium 4.3 mmol/L (3.4-5.0); Sodium 132 mmol/L (137-145)
[2020-01-16 06:00] VITALS: BP 143/97; PULSE 87; RESP 16; TEMP 36.5; O2SAT 99
--- NOTE | 2020-01-16 08:16 | PM.IMPN ---
Progress Note: A&P Assessment and Plan (1) Nausea and vomiting: Qualifiers: Vomiting type: unspecified Vomiting Intractability: non-intractable Qualified Code(s): R11.2 - Nausea with vomiting, unspecified Code(s): R11.2 - Nausea with vomiting, unspecified Status: Acute Assessment and Plan: r/o partial bowel obstruction. This would be the 3rd recent partial SBO. Surgery has been consulted by ER and appreciate input. NPO NGT placed IVF hydration Antiemetics as needed (2) Leukocytosis: Qualifiers: Leukocytosis type: unspecified Qualified Code(s): D72.829 - Elevated white blood cell count, unspecified Code(s): D72.829 - Elevated white blood cell count, unspecified Status: Acute Assessment and Plan: Likley secondary to retching/N/V. WBC 7.2 today Monitor CBCd. (3) Normocytic anemia: Code(s): D64.9 - Anemia, unspecified Status: Acute Assessment and Plan: Likely anemia of chronic disease - No signs of acute blood loss, although NGT output very dark brown in color. No coffee ground/bloody emesis noted. Hgb 11.9 today Monitor H/H transfuse prn. (4) Thrombocytosis: Code(s): D47.3 - Essential (hemorrhagic) thrombocythemia Status: Chronic Assessment and Plan: Plt 421 today Monitor daily (5) Hypertension: Qualifiers: Hypertension type: essential hypertension Qualified Code(s): I10 - Essential (primary) hypertension Code(s): I10 - Essential (primary) hypertension Status: Chronic Assessment and Plan: BP 140s sys today; stable. Monitor blood pressure. BP meds on hold while NGT in place PRN IV antihypertensives as needed. (6) S/P ileal conduit: Code(s): Z93.6 - Other artificial openings of urinary tract status Status: Chronic Assessment and Plan: stable. 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 Patient states he still has occasional N/V, in fact, has an episode of vomiting with dark brown, non-bloody emesis during our visit today. He states that his NGT helps. His abdominal pain comes and goes with his n/v. States it rolls , starting in periumbilical and migrating to epigastric area. Patient otherwise has no other complains. No BM since yesterday morning, not passing flatus today. Denies f/c/s, myalgias/arthralgias, headaches, dizziness, lightheadedness, changes in v/h, cp/palpitations, sob/cough, changes, no blood in ileal conduit ostomy bag, calf pain/swelling. Review of Systems Review of Systems: All systems reviewed & are unremarkable except as noted in HPI and below Exam Narrative: Exam Narrative: Patient lying in semi-gonzalez's position at time of visit Const: General: cooperative, comfortable, no acute distress, well developed, alert, awake and other (NG tube in place+) Nutritional Appearance: well nourished Orientation/consciousness: patient oriented x3 HENMT: Head: normocephalic and atraumatic General nose exam: Normal nares present (NGT noted) Face and sinus: face symmetric Mouth: Yes tongue normal and Yes moist mucous membranes Teeth and gingiva: po
[2020-01-16] MEDS: LACTATED RINGERS 1,000 ML 100 ML IV CONT ×2 (08:20→22:38)
[2020-01-16] MEDS: ONDANSETRON INJ 4 MG/2 ML VIAL IV PUSH ×3 (08:46→20:04)
--- NOTE | 2020-01-16 12:40 | PM.CNGS ---
Assessment and Plan Assessment and plan (1) SBO (small bowel obstruction): Code(s): K56.609 - Unspecified intestinal obstruction, unspecified as to partial versus complete obstruction Status: Acute Assessment and Plan: The patient continues to have recurrent bowel obstructions. This is his 3rd obstruction in the past 3 months. He likely has a volvulus caused by an internal hernia or adhesive band which appears to be somewhat transient. I have reviewed the CT and discussed these findings with the patient. NG tube has been placed for decompression. He will be rehydrated with IV fluids in the interim. I have recommended exploratory laparotomy with possible bowel resection. I discussed the procedure, risks, benefits, and alternatives. Questions were answered. Will proceed with surgery tomorrow morning. (2) S/P ileal conduit: Code(s): Z93.6 - Other artificial openings of urinary tract status Status: Chronic (3) H/O total cystectomy: Onset Date: ~08/2019 Code(s): Z90.6 - Acquired absence of other parts of urinary tract Status: Acute History of Present Illness Consult details Consult date: 01/16/20 Narrative: This is a 74-year-old man who presented to the emergency department last night with abdominal pain, nausea, and vomiting. He began having symptoms yesterday. He did have a bowel movement yesterday. He has had 3 or 4 episodes like this over the past 3 months. He had undergone a robotic cystectomy and prostatectomy with ileal conduit on 10/07/[address] Garcia. The patient has had multiple episodes where he has had a temporary blockage or ileus. Each time he has recovered and began moving his bowels again, but then symptoms have returned. It has been about 2 weeks since his last admission for [address] in the emergency department showed evidence of a small-bowel obstruction with possible volvulus. NG tube has been placed. Patient is currently comfortable aside from the irritation from the NG tube. Denies any severe abdominal pain or fevers. Review of Systems Review of Systems: All systems reviewed & are unremarkable except as noted in HPI and below Eyes: Eyes: Denies change in vision ENT: Denies hearing loss, Denies neck pain and Denies sore throat Cardiovascular: Cardiovascular: Denies chest pain and Denies dyspnea Respiratory: Respiratory: Denies cough, Denies dyspnea and Denies wheezing Genitourinary: Genitourinary: Denies hematuria and Denies dysuria Musculoskeletal: Musculoskeletal: Denies arthralgias, Denies joint swelling and Denies neck pain Allergic/Immunologic: Allergic/Immunologic: Denies wheezing PMFSH Past Medical History Medical History Abnormal bone scan of cervical spine CT suggest hemangioma bone scan suggest Paget's disease Abnormal bone scan of lumbar spine 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) Which has essentially resolved since chemotherapy CHF (congestive heart failure) Depression Essential hypertension H/O subarachnoid hemorrhage Hearing loss Hernia History of lymphoma Diagnosed in 2018 now in remission Hypertension Hyponatremia 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 Postoperative ileus after bladdder resection Rib fracture September 2019 SBO (small bowel obstruction) Tobacco use Surgical History Surgical History H/O total cystectomy (~08/2019) robotic assisted bladder resection History of bilateral cataract extraction History of bilateral inguinal hernia repair History of bladder surgery resection History of prostatectomy Hx of tonsillectomy S/P robot-assisted surgical procedure Family History Family History Father Patient's father is Chronic obstructive pulmonary disease
--- NOTE | 2020-01-16 13:38 | WPDANESEPP ---
Anes - Eval Pre Procedure Procedure: Exploratory Laparotomy, Possible Small Bowel Resection Date/Time: 01/16/20 13:38 Surgeon: Josh Preop Diagnosis: Small Bowel Obstruction Pre Op Diagnosis: SBO Patient Data Age: 74 Gender: M Height: 6 ft 5 in Weight: 83.4 kg Last Vital Signs Temp 36.5 C 01/16/20 06:00 Pulse 87 01/16/20 06:00 Resp 16 01/16/20 06:00 BP 143/97 H 01/16/20 06:00 Pulse Ox 99 01/16/20 06:00 Allergies Allergy/AdvReac Type Severity Reaction Status Date / Time No Known Allergies Allergy Unknown Verified 01/15/20 22:05 Home Medications Medication Instructions Recorded Confirmed Type carvedilol 25 mg PO BID 08/30/19 01/16/20 History duloxetine 60 mg capsule,delayed 60 mg PO DAILY #90 cap 08/31/19 01/16/20 Rx release gabapentin 300 mg capsule 300 mg PO HS cap 08/31/19 01/16/20 History sacubitril 49 mg-valsartan 51 mg 1 tablet PO BID #180 tablet 08/31/19 01/16/20 Rx tablet aspirin [Aspir-81] 81 mg PO DAILY 09/24/19 01/16/20 History megestrol 20 mg PO QAM #30 tablet 12/09/19 01/16/20 Rx polyethylene glycol 3350 [Miralax] 17 gm PO BID #119 gm 01/04/20 01/16/20 Rx Laboratory Tests 01/15/20 01/15/20 01/16/20 22:11 22:11 00:56 WBC 12.8 K/mm3 H K/mm3 (4.5-10.0) RBC 4.27 M/mm3 L M/mm3 (4.6-6.20) Hgb 12.8 g/dL L D g/dL (14.0-18.0) Hct 39.2 % L % (42.0-52.0) MCV 91.8 fl fl (80-100) MCH 30.0 pg pg (26-34) MCHC 32.7 g/dl g/dl (32-36) RDW 15.8 % H % (11.5-14.5) Plt Count 459 k/mm3 H k/mm3 (150-375) MPV 9.3 fl fl (7.4-10.4) Immature Gran % (Auto) 0.2 % % (0-0.5) Neut % (Auto) 72.7 % % (45.5-73.1) Lymph % (Auto) 17.2 % L % (18.3-44.2) [place] % (Auto) 5.8 % % (2.6-8.5) Eos % (Auto) 3.6 % % (0-4.4) Baso % (Auto) 0.5 % % (0.2-1.2) Lymph # (Auto) 2.20 K/mm3 K/mm3 (0.9-3.2) [place] # (Auto) 0.7 K/mm3 H K/mm3 (0.1-0.6) Eos # (Auto) 0.5 K/mm3 H K/mm3 (0-0.3) Baso # (Auto) 0.1 K/mm3 K/mm3 (0.0-0.1) Abs Immat Gran (auto) 0.03 K/mm3 K/mm3 (0.00-0.031) Absolute Neuts (auto) 9.3 K/mm3 H K/mm3 (1.3-6.7) Absolute Nucleated RBC 0.0 K/mm3 K/mm3 (0.0-0.012) Nucleated RBC % 0.0 % % (0.0-0.2) Sodium 132 mmol/L L mmol/L (137-145) Potassium 3.9 mmol/L mmol/L (3.4-5.0) Chloride 104 mmol/L mmol/L (98-107) Carbon Dioxide 17 mmol/L L mmol/L (22-30) BUN 16 mg/dL mg/dL (9-20) Creatinine 1.50 mg/dL H mg/dL (0.7-1.3) Estim Creat Clear Calc 46 ml/min ml/min Estimated GFR 46 L (59 - ) Glucose 152 mg/dL H mg/dL (75-110) Calcium 9.5 mg/dL mg/dL (8.4-10.2) Total Bilirubin 0.5 mg/dL mg/dL (0.2-1.3) AST 16 U/L L U/L (17-59) ALT 11 U/L U/L (4-50) Alkaline Phosphatase 84 U/L U/L (38-126) Total Protein 7.0 g/dL g/dL (6.3-8.2) Albumin 3.6 g/dL g/dL (3.5-5.1) Urine Color Yellow (Yellow) Urine Appearance Cloudy H (Clear) Urine pH 9.0 (5.0-9.0) Ur Specific [place] 1.043 H (1.001-1.035) Urine Protein 2+ mg/dL H mg/dL (Negative) Urine Glucose (UA) Negative mg/dL mg/dL (Negative) Urine Ketones Trace mg/dL mg/dL (Negative) Ur Blood (Man) Negative (Negative) Urine Nitrate Negative (Negative) Urine Bilirubin Negative (Negative) Urine Urobilinogen Negative mg/dL mg/dL (<2.0) Leukocyte Esterase Rfl 3+ CHLOE/UL H CHLOE/UL (Negative) Urine RBC 11-20 /hpf H /hpf (0-2) Urine WBC 31-50 /hpf H /hpf Ur Squamous Epith Cells Rare /hpf /hpf (Few) Urine Bacteria Trace /hpf /hpf Urine Mucus
[2020-01-16 14:00] VITALS: BP 122/90; PULSE 86; RESP 20; TEMP 36.9; O2SAT 96
[2020-01-16 20:00] VITALS: PULSE 86; RESP 20; O2SAT 96
[2020-01-16 22:00] VITALS: BP 131/94; PULSE 94; RESP 22; TEMP 37.7; O2SAT 96
[2020-01-17] VITALS (15 sets, daily range): BP systolic 122–193; BP diastolic 88–121; PULSE 74–107; RESP 16–24; TEMP 36.4–37.4; O2SAT 92–100; BMI 21.8
[2020-01-17 06:06] LABS: Blood Urea Nitrogen 27 mg/dL (9-20); Calcium 8.8 mg/dL (8.4-10.2); Carbon Dioxide 19 mmol/L (22-30); Chloride 109 mmol/L (98-107); Estimated CRCL calculation 44 ml/min; Estimated Glomerular Filt Rate 43; Glucose 90 mg/dL (75-110); Magnesium 1.9 mg/dL (1.6-2.3); Sodium 135 mmol/L (137-145)
[2020-01-17 06:18] LABS: Hematocrit 33.1 % (42.0-52.0); Mean Corpuscular HGB Conc 33.2 g/dl (32-36); Mean Corpuscular Hemoglobin 30.5 pg (26-34); Mean Corpuscular Volume 91.7 fl (80-100); Mean Platelet Volume 9.5 fl (7.4-10.4); Platelet Count Result 380 k/mm3 (150-375); Red Blood Count 3.61 M/mm3 (4.6-6.20); Red Cell Distribution Width 16.1 % (11.5-14.5); White Blood Count 7.2 K/mm3 (4.5-10.0)
--- NOTE | 2020-01-17 07:44 | PC.NURSE ---
To OR per bed, IV saline locked.
[2020-01-17] MEDS: LACTATED RINGERS 1,000 ML 30 ML IV CONT ×2 (08:00→11:38)
[2020-01-17] MEDS: ceFAZolin 2 GM/D5W 50 ML 2 GM/50 ML BAG IVPB ×2 (09:39→16:07)
--- NOTE | 2020-01-17 11:43 | PM.PROC ---
Procedure Note - Detailed Date of procedure: 01/17/20 Pre-op diagnosis: SBO Post-op diagnosis: same Procedure performed: 1. Exploratory laparotomy 2. Lysis of adhesions 3. Release of small bowel obstruction Description of procedure: Procedure as well as risks, benefits, and alternatives were discussed with the patient. Written consent was obtained and placed in chart prior to procedure. Patient was brought back to surgical suite. He was placed supine on operating table. Time-out was done to confirm patient and procedure. He was then intubated by Anesthesia Department. His abdomen was prepped and draped in sterile fashion using chlorhexidine prep. A 10 cm vertical midline incision was made using a 10 blade scalpel from just above the umbilicus to just below the umbilicus. Electrocautery was used for hemostasis. Dissection was carried out down to the linea alba, and then the linea alba was incised with electrocautery. The fascia was lifted anteriorly and the peritoneum was entered using electrocautery. I then carefully inspected the abdominal cavity. The dilated small bowel was identified and carefully traced back proximally to the ligament of Treitz. It was then traced distally to the point of obstruction. This was identified as segment of ileum that was adhesed to the right lower quadrant abdominal wall. These adhesions were carefully taken down using sharp dissection with Metzenbaum scissors. Once these adhesions were fully taken down, I was able to run the remainder of the bowel all the way to the cecum. There did not appear to be any further points of obstruction. The prior anastomosis from the patient's recent ileal conduit surgery was identified about 10-20 cm proximal to the ileocecal valve. This appeared healthy and viable and patent. The ileal conduit was identified beginning in the right posterior abdomen and extending anteriorly up to the right upper quadrant. I called Dr. Jose chow to inspect the ileal conduit to make sure it was in proper orientation and there were no other abnormalities. Once he confirmed that the ileal conduit was in proper orientation and there were no other abnormalities , I then inspected the remainder of the abdomen to ensure there were no other significant abnormalities. The stomach was inspected and NG placement was confirmed within the body of the stomach. The omentum was then brought back down over the small bowel in the midline, and then the abdomen was closed. The fascia was closed in a running fashion using 0 PDS running suture starting from each end and meeting in the middle. The skin was then approximated using a skin stapler. Telfa 4 x 4 gauze and Medipore tape was then applied. The patient was then awakened from anesthesia, extubated, and transferred to recovery. Anesthesia: SHADIA Surgeon: Wilbur Moreno DO Estimated blood loss (mL): 20 Drains: No Packing: No Complications: No immediate complications Condition: stable Disposition: floor Findings: This is a 74-year-old man who presented to the emergency department yesterday with signs of a small-bowel obstruction. The patient has been experiencing nausea and vomiting for 2 days. He has been experiencing intermittent episodes like this over the past 3 months. He recently underwent robotic cystoprostatectomy with ileal conduit on 10/07/2019. He seems to continue to have intermittent partial small-bowel obstructions which have previously resolved on their own, but he continues to have recurrent symptoms and is not eating very much. CT in the emergency department yesterday showed evidence of a small-bowel obstruction with transition point and possible volvulus. Discussions were made with the patient about treatment options, and decision was made to proceed with exploratory laparotomy with possible small-bowel resection. Exploratory laparotomy was performed. The point of obstruction appeared to be had a segment of ileum in the right lower
[2020-01-17] MEDS: hydrALAZINE HCL 20 MG/ML VIAL 5 MG IV PUSH (11:58)
--- NOTE | 2020-01-17 12:02 | WPDURCON ---
Assessment and Plan Assessment and plan (1) History of bladder cancer: Code(s): Z85.51 - Personal history of malignant neoplasm of bladder Status: Acute (2) SBO (small bowel obstruction): Code(s): K56.609 - Unspecified intestinal obstruction, unspecified as to partial versus complete obstruction Status: Acute Assessment and Plan: Intra-op consultation with Dr. Moreno. SBO appeared to be due to adhesions in right lower quadrant. Although there were some minor adhesions of small bowel to ileal conduit, they did not appear to be constricting and the anastamosis appeared patent. There were no gross signs of recurrent urothelial ca. in the peritoneum. Urology Consult Note HPI Date Seen: 01/17/20 Requesting Physician: Johnny Jerry PA-C Primary Care Provider: Jamey Brooks MD Consult Narrative Narrative: Duane Mayo is a 74 year old male Who is very well-known to meWith a history of muscle invasive bladder cancer, status post radical cystectomy with ileal conduit in September 2019. His pathology showed a T3, N1, MO lesion. I've discussed adjuvant chemotherapy with pt. but he's resisted a referal. Recently, he has been having trouble with intermittent small-bowel obstruction. I was notified yesterday by Dr. Moreno the he may be undergoing explratory laparotomy today. Intra-op consultation wa undertaken to inspect ileal conduit and small bowel anastamosis. 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) Which has essentially resolved since chemotherapy CHF (congestive heart failure) Depression Essential hypertension H/O subarachnoid hemorrhage Hearing loss Hernia History of lymphoma Diagnosed in 2018 now in remission Hypertension Hyponatremia 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 Postoperative ileus after bladdder resection Rib fracture September 2019 SBO (small bowel obstruction) Tobacco use Surgical History Surgical History H/O total cystectomy (~08/2019) robotic assisted bladder resection History of bilateral cataract extraction History of bilateral inguinal hernia repair History of bladder surgery resection History of prostatectomy Hx of tonsillectomy S/P robot-assisted surgical procedure Family History Family History Father Patient's father is Chronic obstructive pulmonary disease Mother Patient's mother is Cerebrovascular accident Hypercholesterolemia Sibling Epiglottitis Social History Social History Social History: The patient has traveled all over but not recently. He is not interested in smoking cessation at this time. He is and lives alone. He has 3 children. Primary care physician: Dr. Jamey Brooks Code status: DNR per patient request Smoking packs per day: 1 Smoking cigarettes per day: 20.0 Years smoked: 19 Smoking pack-years: 19.00 Smoking status: Current every day smoker Tobacco type: cigarettes Second hand tobacco smoke exposure: Yes Additional smoking assessment comments: The patient started smoking when he retired of 55 years of age. Alcohol intake: former Drinks per week: 3 Substance use: never Substance use type: does not use Additional living arrangements comments: He is and lives in his own home. He has 4 dogs and 4 cats. He has someone who comes and cleans his house every week. Additional occupation/education commen
--- NOTE | 2020-01-17 13:22 | SUR.PHASEI ---
[id number] sbar faxed floor notified
--- NOTE | 2020-01-17 14:01 | PC.NURSE ---
Returned from OR per bed.
[2020-01-17] MEDS: LACTATED RINGERS 1,000 ML 100 ML IV CONT ×2 (14:09→23:47)
--- NOTE | 2020-01-17 14:46 | PCPTNOTE ---
Attempted PT evaluation. Patient refusing evaluation stating I just got back to my room and I'm in pain. Will try again tomorrow.
--- NOTE | 2020-01-17 14:47 | PCOTNOTE ---
OT evaluation attempted this date. Patient refusing therapy at this time due to just having had surgery and having abdominal pain. Will attempt OT evaluation at later time.
[2020-01-17] MEDS: HYDROMORPHONE HCL 1 MG/ML INJ IV PUSH (14:55)
--- NOTE | 2020-01-17 16:33 | PM.IMPN ---
Progress Note: A&P Assessment and Plan (1) SBO (small bowel obstruction): Code(s): K56.609 - Unspecified intestinal obstruction, unspecified as to partial versus complete obstruction Status: Acute Assessment and Plan: POD0 exploratory laparotomy with adhesiolysis/release of SBO per Dr. Moreno. Patient doing well postoperatively. This was patient's 3rd recent partial SBO. Surgery has been consulted by ER and appreciate input. NPO NGT placed IVF hydration Antiemetics as needed Post op care per Surgical team (2) Leukocytosis: Qualifiers: Leukocytosis type: unspecified Qualified Code(s): D72.829 - Elevated white blood cell count, unspecified Code(s): D72.829 - Elevated white blood cell count, unspecified Status: Acute Assessment and Plan: Likley secondary to retching/N/V. WBC 7.2 today Monitor CBCd. (3) Normocytic anemia: Code(s): D64.9 - Anemia, unspecified Status: Acute Assessment and Plan: Likely anemia of chronic disease - No signs of acute blood loss. No coffee ground/bloody emesis noted in NG output. Hgb 11.0 today; down, but stable Monitor H/H transfuse prn. (4) Thrombocytosis: Code(s): D47.3 - Essential (hemorrhagic) thrombocythemia Status: Chronic Assessment and Plan: Plt 380 today Monitor daily (5) Hypertension: Qualifiers: Hypertension type: essential hypertension Qualified Code(s): I10 - Essential (primary) hypertension Code(s): I10 - Essential (primary) hypertension Status: Chronic Assessment and Plan: BP 140s sys today; stable. Monitor blood pressure. BP meds on hold while NGT in place Resume BP meds when appropriate PRN IV antihypertensives as needed. (6) S/P ileal conduit: Code(s): Z93.6 - Other artificial openings of urinary tract status Status: Chronic Assessment and Plan: stable. Normal output. UC growing kebsiella pneumoniae and proteus vulgaris; similar growth on previous hospital stay UC. 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 Moreno. Patient thinks his surgery today went okay. He occasionally has sharp pain, but otherwise pain is reasonable. N/V has improved today. He had BMs prior to his surgery. He has no other complaints at this time. He did express that he wished to go home and was fairly adamant he does not want to go to SNF; discussed with him that CC will be in contact with him during his stay to discuss further. Denies f/c/s, headaches, dizziness, lightheadedness, cp/palpitations, sob/cough, changes, no blood in ileal conduit ostomy bag, calf pain/swelling. Review of Systems Review of Systems: All systems reviewed & are unremarkable except as noted in HPI and below Exam Narrative: Exam Narrative: Patient lying in semi-gonzalez's position at time of visit Const: General: cooperative, comfortable, no acute distress, well developed, alert, awake and other (NG tube in place+) Nutritional Appearance: well nourished Orientation/consciousness: patient oriented x3 HE
[2020-01-18] VITALS (7 sets, daily range): BP systolic 154–180; BP diastolic 97–109; PULSE 58–101; RESP 16–20; TEMP 36.6–37.4; O2SAT 92–98
[2020-01-18] MEDS: ceFAZolin 2 GM/D5W 50 ML 2 GM/50 ML BAG IVPB ×2 (00:56→07:55)
[2020-01-18 05:24] LABS: Hematocrit 32.2 % (42.0-52.0); Hemoglobin 10.5 g/dL (14.0-18.0); Mean Corpuscular HGB Conc 32.6 g/dl (32-36); Mean Corpuscular Hemoglobin 30.2 pg (26-34); Mean Corpuscular Volume 92.5 fl (80-100); Mean Platelet Volume 9.5 fl (7.4-10.4); Platelet Count Result 345 k/mm3 (150-375); Red Blood Count 3.48 M/mm3 (4.6-6.20)
[2020-01-18 06:16] LABS: Blood Urea Nitrogen 26 mg/dL (9-20); Calcium 8.1 mg/dL (8.4-10.2); Carbon Dioxide 18 mmol/L (22-30); Chloride 107 mmol/L (98-107); Estimated CRCL calculation 53 ml/min; Estimated Glomerular Filt Rate 54; Glucose 97 mg/dL (75-110); Magnesium 1.7 mg/dL (1.6-2.3); Sodium 133 mmol/L (137-145)
[2020-01-18] MEDS: ENOXAPARIN 40 MG/0.4 ML SYRINGE SUB-Q (07:55)
[2020-01-18] MEDS: hydrALAZINE HCL 20 MG/ML VIAL 10 MG IV PUSH ×2 (07:55→18:50)
--- NOTE | 2020-01-18 08:18 | PCOTNOTE ---
OT evaluation attempted this morning. Patient stated he was not going to do anything with therapy until this afternoon. He states he is not ready to get up. OT to attempt later.
--- NOTE | 2020-01-18 08:19 | PCPTNOTE ---
Attempted to see patient this a.m. for PT baltazar. He refused - stated that he would do it this afternoon. Attempt made to have him reconsider. Unable to do so. Will try again this p.m.
--- NOTE | 2020-01-18 08:59 | PCPTNOTE ---
Discussed with in pt PT and OT - this is pt's usual pattern when hospitalized - constantly refusing PT eval. Will d/c from PT at this time.
[2020-01-18] MEDS: LACTATED RINGERS 1,000 ML 100 ML IV CONT (11:02)
--- NOTE | 2020-01-18 11:42 | WPDANESPN ---
Anes - Prog Note Post-Op Date/Time: 01/18/20 11:42 Cardiovascular status: normal Respiratory status: normal Airway patency: baseline Mental status: baseline Post-Op hydration status: normal Vital Signs: Last Vital Signs Temp 99 F 01/18/20 10:00 Pulse 100 01/18/20 10:00 Resp 17 01/18/20 10:00 BP 174/99 H 01/18/20 10:00 Pulse Ox 97 01/18/20 10:00 I/O: Intake & Output 01/17/20 01/18/20 01/18/20 23:59 07:59 15:59 Intake Total 1210 830 470 Output Total 225 350 Balance 985 480 470 Laboratory Tests 01/18/20 05:02 01/18/20 05:02 01/18/20 01/18/20 05:02 05:02 WBC 4.0 L RBC 3.48 L Hgb 10.5 L Hct 32.2 L MCV 92.5 MCH 30.2 MCHC 32.6 RDW 16.0 H Plt Count 345 MPV 9.5 Sodium 133 L Potassium 4.0 Chloride 107 Carbon Dioxide 18 L BUN 26 H Creatinine 1.30 Estim Creat Clear Calc 53 Estimated GFR 54 L Glucose 97 Calcium 8.1 L Magnesium 1.7 Microbiology 01/16/20 00:56 Urine Clean Catch Urine Culture - Final Post-procedural complaints: none Patient Feedback: Patient satisfied with anesthetic care.
--- NOTE | 2020-01-18 14:48 | PM.PNGS ---
Progress Note: A&P Assessment and Plan (1) SBO (small bowel obstruction): Code(s): K56.609 - Unspecified intestinal obstruction, unspecified as to partial versus complete obstruction Status: Acute Assessment and Plan: Continue NG decompression today. Await return of bowel function. Increase activity. Subjective Subjective Date/Time Seen: 01/18/20 14:48 Pain controlled. No BM or Flatus yet. In good spirits today. Exam GI: Inspection: non-distended and incision (dry) GI Palp: Yes Tenderness to palpation present (GI) (incisional) Percussion: Yes normal to percussion Auscultation: Hypoactive bowel sounds present Objective Data Vital Signs Vital Signs: Vital Signs - 24 hr 01/17/20 15:45 01/17/20 21:49 01/18/20 02:41 Temperature 37.2 C 36.7 C 36.6 C Pulse Rate 95 107 H 58 L Respiratory Rate 16 20 16 Blood Pressure 132/93 H 152/104 H 160/108 H Pulse Oximetry 98 96 92 01/18/20 06:00 01/18/20 09:32 01/18/20 10:00 Temperature 36.8 C 37.2 C Pulse Rate 101 H 100 Respiratory Rate 20 17 Blood Pressure 179/109 H 154/104 H 174/99 H Pulse Oximetry 94 97 Intake/Output Intake/Output: Intake & Output 01/15/20 01/16/20 01/17/20 01/18/20 23:59 23:59 23:59 23:59 Intake Total 1000 2050 2860 1300 Output Total 900 1120 350 Balance 1000 1150 1740 950 Meds/Results Medications: Active Medications Generic Name Dose Route Start Last Admin Trade Name Freq PRN Reason Stop Dose Admin Enoxaparin Sodium 40 mg 01/18/20 09:00 01/18/20 07:55 Lovenox SUB-Q 40 mg DAILY MONICA Administration Hydralazine HCl 10 mg 01/18/20 07:24 01/18/20 07:55 Apresoline Hcl Inj IV PUSH 10 mg Q8H PRN Administration Blood Pressure - High Hydromorphone HCl 0.5 mg 01/17/20 13:32 Dilaudid Inj IV PUSH Q2H PRN Pain Rated 4-6 Hydromorphone HCl 1 mg 01/17/20 13:32 01/17/20 14:55 Dilaudid Inj IV PUSH 1 mg Q2H PRN Administration Pain Rated 7-10 Potassium Chloride/Dextrose/Sod Cl 1,000 mls @ 100 mls/hr 01/18/20 14:45 Kcl 20 Meq/D5/0.45% Sod Chl IV CONT .Q10H MONICA Ondansetron HCl 4 mg 01/16/20 08:18 01/16/20 20:04 Zofran Inj IV PUSH 4 mg Q6H PRN Administration Nausea And Vomiting Ondansetron HCl 4 mg 01/17/20 12:13 Zofran Inj IV PUSH ONCE PRN Nausea Radiology Results: ITS Impressions Abdomen X-Ray 01/16/20 08:32 IMPRESSION: 1. Is a gastric tube in the stomach. 2. Small bowel obstruction. Abdomen/Pelvis CT 01/16/20 09:50 IMPRESSION: 1. Small bowel obstruction which appears to be related to volvulus with swirled appearance to the small bowel at the transition point. 2. Mild mesenteric edema and wall thickening of the small bowel near the transition point which raises the possibility of ischemia. Consider correlation with lactate levels. 3. Small sliding-type hiatal hernia with persistent prominent wall thickening the distal esophagus. This could be related to reflux but if not previously performed would recommend endoscopy for further evaluation. 4. Unchanged sclerosis at L2 and at the left and right innominate bones which could be related to Paget's disease or metastatic disease. The absence of appreciable increased FDG uptake on an earlier bone scan would argue against metastatic disease. Labs Labs: Laboratory Results - last 24 hr 01/18/20 01/18/20 05:02 05:02 WBC 4.0 L RBC 3.48 L Hgb 10.5 L Hct 32.2 L MCV 92.5 MCH 30.2 MCHC 32.6 RDW 16.0 H Plt Count 345 MPV 9.5 Sodium 133 L Potassium 4.0 Chloride 107 Carbon Dioxide 18 L BUN 26 H Creatinine 1.30 Estim Creat Clear Calc 53 Estimated GFR 54 L Glucose 97 Calcium 8.1 L Magnesium 1.7 Quality VTE Prophylaxis VTE prophylaxis: mechanical ordered
--- NOTE | 2020-01-18 16:00 | PM.IMPN ---
Progress Note: A&P Assessment and Plan (1) SBO (small bowel obstruction): Code(s): K56.609 - Unspecified intestinal obstruction, unspecified as to partial versus complete obstruction Status: Acute Assessment and Plan: POD #1 exploratory laparotomy with adhesiolysis/release of SBO per Dr. Moreno. Patient doing well postoperatively. This was patient's 3rd recent partial SBO. Surgery has been consulted by ER and appreciate input. The patient is still NPO at this time per surgery and waiting for his bowel sounds return. Only eating ice at this time. NGT still in place IVF hydration Antiemetics as needed Post op care per Surgical team (2) Leukocytosis: Qualifiers: Leukocytosis type: unspecified Qualified Code(s): D72.829 - Elevated white blood cell count, unspecified Code(s): D72.829 - Elevated white blood cell count, unspecified Status: Acute Assessment and Plan: Likley secondary to retching/N/V. WBC was 4.0 today after surgery Monitor CBCd. (3) Normocytic anemia: Code(s): D64.9 - Anemia, unspecified Status: Acute Assessment and Plan: Likely anemia of chronic disease - No signs of acute blood loss. No coffee ground/bloody emesis noted in NG output. Hgb 10.5 after surgery, slightly down, but stable Monitor H/H transfuse prn. (4) Thrombocytosis: Code(s): D47.3 - Essential (hemorrhagic) thrombocythemia Status: Chronic Assessment and Plan: Plt normal today at 345 Monitor daily (5) Hypertension: Qualifiers: Hypertension type: essential hypertension Qualified Code(s): I10 - Essential (primary) hypertension Code(s): I10 - Essential (primary) hypertension Status: Chronic Assessment and Plan: BP 154/104 sys today; stable. Monitor blood pressure. BP meds on hold while NGT in place Resume BP meds when appropriate PRN IV antihypertensives as needed. (6) S/P ileal conduit: Code(s): Z93.6 - Other artificial openings of urinary tract status Status: Chronic Assessment and Plan: Stable. Normal output. UC growing kebsiella pneumoniae and proteus vulgaris; similar growth on previous hospital stay UC. Could be related to colonization. Will defer antibiotic therapy at this time since his WBC is normal, with stable vital signs. 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 Moreno. The patient reports feeling better today and only complaining of some discomfort to his abdomen. He has not been passing any gas, he has been belching today. He is tolerating ice chips without any issues. Denies any nausea, vomiting, chest pain, shortness of breath, cough, fever, chills, leg swelling, calf pain or any other symptoms at this time. He has not been up walking around at all today but he plans to later on this evening. Review of Systems Review of Systems: All systems reviewed & are unremarkable except as noted in HPI and below Exam Narrative: Exam Narrative: Keiry
[2020-01-18] MEDS: KCL 20 MEQ/D5/0.45% SOD CHL 1,000 ML 100 ML IV CONT (16:54)
[2020-01-19] MEDS: KCL 20 MEQ/D5/0.45% SOD CHL 1,000 ML 100 ML IV CONT ×3 (02:03→23:41)
[2020-01-19] MEDS: HYDROMORPHONE HCL 1 MG/ML INJ IV PUSH ×2 (02:04→17:58)
[2020-01-19 06:00] VITALS: BP 163/99; PULSE 84; RESP 21; TEMP 36.6; O2SAT 100
[2020-01-19 06:09] LABS: Hematocrit 32.3 % (42.0-52.0); Hemoglobin 10.8 g/dL (14.0-18.0); Mean Corpuscular HGB Conc 33.4 g/dl (32-36); Mean Corpuscular Hemoglobin 30.7 pg (26-34); Mean Corpuscular Volume 91.8 fl (80-100); Mean Platelet Volume 9.7 fl (7.4-10.4); Platelet Count Result 338 k/mm3 (150-375); Red Blood Count 3.52 M/mm3 (4.6-6.20); Red Cell Distribution Width 15.9 % (11.5-14.5); White Blood Count 4.2 K/mm3 (4.5-10.0)
[2020-01-19 06:15] LABS: Blood Urea Nitrogen 23 mg/dL (9-20); Calcium 8.3 mg/dL (8.4-10.2); Carbon Dioxide 20 mmol/L (22-30); Chloride 105 mmol/L (98-107); Estimated CRCL calculation 63 ml/min; Estimated Glomerular Filt Rate > 60; Glucose 100 mg/dL (75-110); Magnesium 1.8 mg/dL (1.6-2.3); Potassium 3.7 mmol/L (3.4-5.0); Sodium 131 mmol/L (137-145)
[2020-01-19] MEDS: hydrALAZINE HCL 20 MG/ML VIAL 10 MG IV PUSH ×2 (06:18→22:15)
[2020-01-19] MEDS: ENOXAPARIN 40 MG/0.4 ML SYRINGE SUB-Q (07:47)
[2020-01-19 07:54] VITALS: PULSE 100; RESP 18; O2SAT 97
--- NOTE | 2020-01-19 11:20 | PM.PNGS ---
Progress Note: A&P Assessment and Plan (1) SBO (small bowel obstruction): Code(s): K56.609 - Unspecified intestinal obstruction, unspecified as to partial versus complete obstruction Status: Acute Assessment and Plan: Doing well on postop day 2. Will remove NG tube today and start clear liquids. Increase activity. Subjective Subjective Date/Time Seen: 01/19/20 11:20 Passing flatus. No bowel movement. Pain well controlled. Exam GI: Inspection: non-distended and incision (Clean/dry/intact) GI Palp: Yes Soft to palpation and Yes Tenderness to palpation present (GI) (Incisional) Auscultation: normal bowel sounds Objective Data Vital Signs Vital Signs: Vital Signs - 24 hr 01/18/20 14:00 01/18/20 18:49 01/18/20 22:00 Temperature 37.3 C 37.4 C Pulse Rate 95 100 Respiratory Rate 17 18 Blood Pressure 180/98 H 172/102 H 158/97 H Pulse Oximetry 98 97 01/19/20 06:00 01/19/20 07:54 Temperature 36.6 C Pulse Rate 84 100 Respiratory Rate 21 H 18 Blood Pressure 163/99 H Pulse Oximetry 100 97 Intake/Output Intake/Output: Intake & Output 01/16/20 01/17/20 01/18/20 01/19/20 23:59 23:59 23:59 23:59 Intake Total 2050 2860 1936 1385 Output Total 900 1120 1100 1200 Balance 1150 1740 836 185 Meds/Results Medications: Active Medications Generic Name Dose Route Start Last Admin Trade Name Freq PRN Reason Stop Dose Admin Enoxaparin Sodium 40 mg 01/18/20 09:00 01/19/20 07:47 Lovenox SUB-Q 40 mg DAILY MONICA Administration Hydralazine HCl 10 mg 01/18/20 07:24 01/19/20 06:18 Apresoline Hcl Inj IV PUSH 10 mg Q8H PRN Administration Blood Pressure - High Hydromorphone HCl 0.5 mg 01/17/20 13:32 Dilaudid Inj IV PUSH Q2H PRN Pain Rated 4-6 Hydromorphone HCl 1 mg 01/17/20 13:32 01/19/20 02:04 Dilaudid Inj IV PUSH 1 mg Q2H PRN Administration Pain Rated 7-10 Potassium Chloride/Dextrose/Sod Cl 1,000 mls @ 100 mls/hr 01/18/20 14:45 01/19/20 06:00 Kcl 20 Meq/D5/0.45% Sod Chl IV CONT 100 mls/hr .Q10H MONICA Infusion Ondansetron HCl 4 mg 01/16/20 08:18 01/16/20 20:04 Zofran Inj IV PUSH 4 mg Q6H PRN Administration Nausea And Vomiting Ondansetron HCl 4 mg 01/17/20 12:13 Zofran Inj IV PUSH ONCE PRN Nausea Radiology Results: ITS Impressions Abdomen X-Ray 01/16/20 08:32 IMPRESSION: 1. Is a gastric tube in the stomach. 2. Small bowel obstruction. Abdomen/Pelvis CT 01/16/20 09:50 IMPRESSION: 1. Small bowel obstruction which appears to be related to volvulus with swirled appearance to the small bowel at the transition point. 2. Mild mesenteric edema and wall thickening of the small bowel near the transition point which raises the possibility of ischemia. Consider correlation with lactate levels. 3. Small sliding-type hiatal hernia with persistent prominent wall thickening the distal esophagus. This could be related to reflux but if not previously performed would recommend endoscopy for further evaluation. 4. Unchanged sclerosis at L2 and at the left and right innominate bones which could be related to Paget's disease or metastatic disease. The absence of appreciable increased FDG uptake on an earlier bone scan would argue against metastatic disease. Labs Labs: Laboratory Results - last 24 hr 01/19/20 01/19/20 05:08 05:08 WBC 4.2 L RBC 3.52 L Hgb 10.8 L Hct 32.3 L MCV 91.8 MCH 30.7 MCHC 33.4 RDW 15.9 H Plt Count 338 MPV 9.7 Sodium 131 L Potassium 3.7 Chloride 105 Carbon Dioxide 20 L BUN 23 H Creatinine 1.10 Estim Creat Clear Calc 63 Estimated GFR > 60 Glucose 100 Calcium 8.3 L Magnesium 1.8 Quality VTE Prophylaxis VTE prophylaxis: mechanical ordered
--- NOTE | 2020-01-19 13:11 | PM.IMPN ---
Progress Note: A&P Assessment and Plan (1) SBO (small bowel obstruction): Code(s): K56.609 - Unspecified intestinal obstruction, unspecified as to partial versus complete obstruction Status: Acute Assessment and Plan: POD #2 exploratory laparotomy with adhesiolysis/release of SBO per Dr. Moreno. Patient doing well postoperatively. This was patient's 3rd recent partial SBO. Surgery removed NG tube today. Started on Clear Liquid diet. Surgery will advance diet as tolerated. NGT still in place IVF hydration Antiemetics as needed Post op care per Surgical team (2) Neutropenia: Code(s): D70.9 - Neutropenia, unspecified Status: Acute Assessment and Plan: Likley secondary to retching/N/V. WBC was 4.2 today after surgery Monitor CBCd. (3) Normocytic anemia: Code(s): D64.9 - Anemia, unspecified Status: Acute Assessment and Plan: Likely anemia of chronic disease - No signs of acute blood loss. No coffee ground/bloody emesis noted in NG output. Hgb 10.8 after surgery, stable Monitor H/H transfuse prn. (4) Thrombocytosis: Code(s): D47.3 - Essential (hemorrhagic) thrombocythemia Status: Chronic Assessment and Plan: Plt normal today at 338 Monitor daily (5) Hypertension: Qualifiers: Hypertension type: essential hypertension Qualified Code(s): I10 - Essential (primary) hypertension Code(s): I10 - Essential (primary) hypertension Status: Chronic Assessment and Plan: BP 163/99 sys today; stable. Monitor blood pressure. BP meds on hold while starting clear liquid diet. Resume BP meds when appropriate PRN IV antihypertensives as needed. (6) S/P ileal conduit: Code(s): Z93.6 - Other artificial openings of urinary tract status Status: Chronic Assessment and Plan: Stable. Normal output. UC growing kebsiella pneumoniae and proteus vulgaris; similar growth on previous hospital stay UC. Could be related to colonization. Will defer antibiotic therapy at this time since his WBC is normal, with stable vital signs. 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 Moreno. The patient reports feeling better today and NG tube was removed. He is starting to eat a clear liquid diet. He denies any nausea at this time. He does report not sleeping well last night, he had a lot on his mind and he was having some abdominal pain. He began passing gas last night and more today. No bowel movements yet. Denies any nausea, vomiting, chest pain, shortness of breath, cough, fever, chills, leg swelling, calf pain or any other symptoms at this time. Review of Systems Review of Systems: All systems reviewed & are unremarkable except as noted in HPI and below Exam Narrative: Exam Narrative: General: 74-year-old man sitting up in bed, eating a clear. Appears comfortable. In no acute distress. Skin: No jaundice or cyanosis. Good skin turgor. Neck: Full range of motion. Supple. Respi
--- NOTE | 2020-01-19 13:35 | PCPTNOTE ---
Attempted PT evaluation. Pt refusing stating he's already been up in the chair and walked to the bathroom today. When asked when a good time is to return pt is unable to agree to a time and states that I won't be up to it then either at all options offered.
--- NOTE | 2020-01-19 13:38 | PCOTNOTE ---
Attempted OT evaluation this date. Pt refusing stating he's already been up in the chair and walked to the bathroom today. When asked when a good time is to return pt is unable to agree to a time and states that I won't be up to it then either at all options offered.
[2020-01-19 14:00] VITALS: BP 143/103; PULSE 111; RESP 20; TEMP 36.6; O2SAT 98
[2020-01-19 20:00] VITALS: PULSE 111; RESP 20; O2SAT 98
[2020-01-19 22:00] VITALS: BP 158/110; PULSE 95; RESP 21; TEMP 37.1; O2SAT 100
[2020-01-20 00:40] VITALS: BP 140/90
[2020-01-20 05:42] LABS: Hematocrit 30.1 % (42.0-52.0); Hemoglobin 10.4 g/dL (14.0-18.0); Mean Corpuscular HGB Conc 34.6 g/dl (32-36); Mean Corpuscular Hemoglobin 30.6 pg (26-34); Mean Corpuscular Volume 88.5 fl (80-100); Mean Platelet Volume 9.2 fl (7.4-10.4); Platelet Count Result 342 k/mm3 (150-375); Red Cell Distribution Width 15.6 % (11.5-14.5)
[2020-01-20 05:50] LABS: Blood Urea Nitrogen 16 mg/dL (9-20); Calcium 8.4 mg/dL (8.4-10.2); Carbon Dioxide 19 mmol/L (22-30); Chloride 104 mmol/L (98-107); Estimated CRCL calculation 76 ml/min; Estimated Glomerular Filt Rate > 60; Glucose 112 mg/dL (75-110); Magnesium 1.7 mg/dL (1.6-2.3); Potassium 3.5 mmol/L (3.4-5.0); Sodium 131 mmol/L (137-145)
[2020-01-20 06:00] VITALS: BP 139/99; PULSE 111; RESP 20; TEMP 36.8; O2SAT 98
[2020-01-20] MEDS: ENOXAPARIN 40 MG/0.4 ML SYRINGE SUB-Q (08:06)
[2020-01-20] MEDS: KCL 20 MEQ/D5/0.45% SOD CHL 1,000 ML 100 ML IV CONT (09:47)
--- NOTE | 2020-01-20 11:45 | PM.IMPN ---
Progress Note: A&P Assessment and Plan (1) SBO (small bowel obstruction): Code(s): K56.609 - Unspecified intestinal obstruction, unspecified as to partial versus complete obstruction Status: Acute Assessment and Plan: POD #3 exploratory laparotomy with adhesiolysis/release of SBO per Dr. Moreno. Patient doing well postoperatively. This was patient's 3rd recent partial SBO. Continued Clear Liquid diet today. He is tolerating it well. Surgery will advance diet as tolerated. IVF hydration Antiemetics as needed Post op care per Surgical team (2) Neutropenia: Code(s): D70.9 - Neutropenia, unspecified Status: Acute Assessment and Plan: Likley secondary to retching/N/V. WBC was 4.0 today after surgery Monitor CBCd. (3) Normocytic anemia: Code(s): D64.9 - Anemia, unspecified Status: Acute Assessment and Plan: Likely anemia of chronic disease - No signs of acute blood loss. No coffee ground/bloody emesis noted in NG output. Hgb 10.4 stable Monitor H/H transfuse prn. (4) Thrombocytosis: Code(s): D47.3 - Essential (hemorrhagic) thrombocythemia Status: Chronic Assessment and Plan: Plt normal today at 342 Monitor daily (5) Hypertension: Qualifiers: Hypertension type: essential hypertension Qualified Code(s): I10 - Essential (primary) hypertension Code(s): I10 - Essential (primary) hypertension Status: Chronic Assessment and Plan: BP 139/99 today; stable. Monitor blood pressure. Will restart Coreg this evening since tolerating clear diet well at this time. Consider restarting Sacubitril-Valsartan tomorrow if BP still elevated and still tolerating diet. Resume BP meds when appropriate PRN IV antihypertensives as needed. (6) S/P ileal conduit: Code(s): Z93.6 - Other artificial openings of urinary tract status Status: Chronic Assessment and Plan: Stable. Normal output. UC growing kebsiella pneumoniae and proteus vulgaris; similar growth on previous hospital stay UC. Could be related to colonization. Will defer antibiotic therapy at this time since his WBC is normal, with stable vital signs. 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 Moreno. The patient reports feeling okay today. He just walked to the bathroom with the aid and he is feeling weak, fatigued and scared that he is going to fall secondary to his weakness. He has been refusing PT/OT and still wants to go home once he is discharged. He is still tolerating a clear liquid diet well and taking his time with eating. He denies any nausea at this time. He is still passing gas, but no bowel movements yet. Denies any nausea, vomiting, chest pain, shortness of breath, cough, fever, chills, leg swelling, calf pain or any other symptoms at this time. Review of Systems Review of Systems: All systems reviewed & are unremarkable except as noted in HPI and below Exam Narrative: Exam Narrative: General: 74-year-old man sitting up in bed, with his clear liquid diet at
--- NOTE | 2020-01-20 12:20 | PM.PNGS ---
Progress Note: A&P Assessment and Plan (1) SBO (small bowel obstruction): Code(s): K56.609 - Unspecified intestinal obstruction, unspecified as to partial versus complete obstruction Status: Acute Assessment and Plan: Advance to full liquids today Continue increasing activity Subjective Subjective Date/Time Seen: 01/20/20 12:20 Passing flatus, still no BM. Improving ambulation slowly. Pain controlled. Exam GI: Inspection: non-distended and incision (c/d/i) GI Palp: Yes Soft to palpation and Yes Tenderness to palpation present (GI) (incisional) Auscultation: normal bowel sounds Objective Data Vital Signs Vital Signs: Vital Signs - 24 hr 01/19/20 14:00 01/19/20 20:00 01/19/20 22:00 Temperature 36.6 C 37.1 C Pulse Rate 111 H 111 H 95 Respiratory Rate 20 20 21 H Blood Pressure 143/103 H 158/110 H Pulse Oximetry 98 98 100 01/20/20 00:40 01/20/20 06:00 Temperature 36.8 C Pulse Rate 111 H Respiratory Rate 20 Blood Pressure 140/90 139/99 H Pulse Oximetry 98 Intake/Output Intake/Output: Intake & Output 01/17/20 01/18/20 01/19/20 01/20/20 23:59 23:59 23:59 23:59 Intake Total 2860 1936 3375 1400 Output Total 1120 1100 2550 800 Balance 1740 836 825 600 Meds/Results Medications: Active Medications Generic Name Dose Route Start Last Admin Trade Name Freq PRN Reason Stop Dose Admin Carvedilol 25 mg 01/20/20 17:00 Coreg PO BID MONICA Diphenhydramine HCl 25 mg 01/19/20 14:56 01/19/20 20:41 Benadryl Cap PO 25 mg HS PRN Administration Insomnia Enoxaparin Sodium 40 mg 01/18/20 09:00 01/20/20 08:06 Lovenox SUB-Q 40 mg DAILY MONICA Administration Hydralazine HCl 10 mg 01/18/20 07:24 01/19/20 22:15 Apresoline Hcl Inj IV PUSH 10 mg Q8H PRN Administration Blood Pressure - High Hydromorphone HCl 0.5 mg 01/17/20 13:32 Dilaudid Inj IV PUSH Q2H PRN Pain Rated 4-6 Hydromorphone HCl 1 mg 01/17/20 13:32 01/19/20 17:58 Dilaudid Inj IV PUSH 1 mg Q2H PRN Administration Pain Rated 7-10 Potassium Chloride/Dextrose/Sod Cl 1,000 mls @ 100 mls/hr 01/18/20 14:45 01/20/20 09:47 Kcl 20 Meq/D5/0.45% Sod Chl IV CONT 100 mls/hr .Q10H MONICA Administration Ondansetron HCl 4 mg 01/16/20 08:18 01/16/20 20:04 Zofran Inj IV PUSH 4 mg Q6H PRN Administration Nausea And Vomiting Ondansetron HCl 4 mg 01/17/20 12:13 Zofran Inj IV PUSH ONCE PRN Nausea Radiology Results: ITS Impressions Abdomen X-Ray 01/16/20 08:32 IMPRESSION: 1. Is a gastric tube in the stomach. 2. Small bowel obstruction. Abdomen/Pelvis CT 01/16/20 09:50 IMPRESSION: 1. Small bowel obstruction which appears to be related to volvulus with swirled appearance to the small bowel at the transition point. 2. Mild mesenteric edema and wall thickening of the small bowel near the transition point which raises the possibility of ischemia. Consider correlation with lactate levels. 3. Small sliding-type hiatal hernia with persistent prominent wall thickening the distal esophagus. This could be related to reflux but if not previously performed would recommend endoscopy for further evaluation. 4. Unchanged sclerosis at L2 and at the left and right innominate bones which could be related to Paget's disease or metastatic disease. The absence of appreciable increased FDG uptake on an earlier bone scan would argue against metastatic disease. Labs Labs: Laboratory Results - last 24 hr 01/20/20 01/20/20 05:12 05:12 WBC 4.0 L RBC 3.40 L Hgb 10.4 L Hct 30.1 L MCV 88.5 MCH 30.6 MCHC 34.6 RDW 15.6 H Plt Count 342 MPV 9.2 Sodium 131 L Potassium 3.5 Chloride 104 Carbon Dioxide 19 L BUN 16 Creatinine 0.90 Estim Creat Clear Calc 76 Estimated GFR > 60 Glucose 112 H Calcium 8.4 Magnesium 1.7 Quality VTE Prophylaxis VTE prophylaxis: mechanical ordered
--- NOTE | 2020-01-20 13:06 | PCNFU ---
Nutrition Follow-Up Complete: Altered GI fxn as related to SBO as evidenced by NPO Goal: meet estimated calorie needs advancing towards goal. Pt current nutrition is Full liquids. Nutrition recommendation: Agree Last recorded weight is 83.4 kg. Bowel Motility:No BM reported Labs Reviewed:Glu 112, Na 131 Meds Noted: Lovenox,Dilaudid Additional Notes: Diet order has been advanced to a full liquid diet. Patient is having less nausea reported per nursing. Agree with advancing as tolerated per MD orders. Monitoring: Will monitor every 5 days.
[2020-01-20 14:00] VITALS: BP 159/108; PULSE 99; RESP 18; TEMP 36.7; O2SAT 99
[2020-01-20 17:41] VITALS: PULSE 99
[2020-01-20] MEDS: carvediloL 25 MG TABLET PO (17:41)
[2020-01-20 18:00] VITALS: BP 136/101; PULSE 93; RESP 16; TEMP 37.1; O2SAT 97
[2020-01-20 22:00] VITALS: BP 137/99; PULSE 81; RESP 18; TEMP 36.6; O2SAT 98
[2020-01-21 05:16] LABS: Hematocrit 28.4 % (42.0-52.0); Hemoglobin 9.4 g/dL (14.0-18.0); Mean Corpuscular HGB Conc 33.1 g/dl (32-36); Mean Corpuscular Hemoglobin 29.7 pg (26-34); Mean Corpuscular Volume 89.9 fl (80-100); Mean Platelet Volume 9.2 fl (7.4-10.4); Platelet Count Result 297 k/mm3 (150-375); Red Blood Count 3.16 M/mm3 (4.6-6.20); Red Cell Distribution Width 15.4 % (11.5-14.5); White Blood Count 5.1 K/mm3 (4.5-10.0)
[2020-01-21 05:24] LABS: Blood Urea Nitrogen 15 mg/dL (9-20); Carbon Dioxide 18 mmol/L (22-30); Chloride 104 mmol/L (98-107); Estimated CRCL calculation 69 ml/min; Estimated Glomerular Filt Rate > 60; Glucose 88 mg/dL (75-110); Magnesium 1.7 mg/dL (1.6-2.3); Potassium 3.3 mmol/L (3.4-5.0); Sodium 129 mmol/L (137-145)
[2020-01-21 06:00] VITALS: BP 149/97; PULSE 78; RESP 16; TEMP 36.7; O2SAT 99
[2020-01-21] MEDS: carvediloL 25 MG TABLET PO ×2 (08:44→16:49)
[2020-01-21] MEDS: ENOXAPARIN 40 MG/0.4 ML SYRINGE SUB-Q (08:45)
[2020-01-21] MEDS: POTASSIUM CHLORIDE 20 MEQ TABLET 40 MEQ PO (08:54)
[2020-01-21] MEDS: MAGNESIUM SULF 2 GM/WATER 50ML 2 GM/50 ML BAG IVPB (08:55)
[2020-01-21 09:00] VITALS: O2SAT 94
--- NOTE | 2020-01-21 11:56 | PM.PNGS ---
Progress Note: A&P Assessment and Plan (1) SBO (small bowel obstruction): Code(s): K56.609 - Unspecified intestinal obstruction, unspecified as to partial versus complete obstruction Status: Acute Assessment and Plan: Doing well post-op day 4. Will give dose of milk of magnesia to help stimulate his bowels. Continue increasing activity. Encouraged patient to walk the halls today and sit in the chair with meals. Additional Plan Discussed patient's case and plan of care with Dr. Moreno. Subjective Subjective Date/Time Seen: 01/21/20 11:10 Post Op day: 4 (Ex lap with adhesiolysis and release of small bowel obstruction) Patient reports: no new complaints, flatus and no bowel movement Interval history: Patient reports feeling well today with no complaints of abdominal pain. Tolerating full liquids with no nausea, vomiting, or bloating. Reports a lot of flatus today but no BM. Has walked in the room but not in the halls. No other complaints at this time. Review of Systems Review of Systems: All systems reviewed & are unremarkable except as noted in HPI and below Cardiovascular: Cardiovascular: Denies chest pain Respiratory: Respiratory: Denies cough, Denies excessive phlegm production, Reports dyspnea on exertion (when walking, but minimal) and Denies wheezing Exam Const: General: comfortable, no acute distress, alert and awake Orientation/consciousness: patient oriented x3 Resp: Effort & Inspection: normal respiratory effort and able to speak in complete sentences Auscultation: clear to auscultation bilaterally Cardio: Rate: regular rate Rhythm: regular rhythm GI: Inspection: non-distended and incision (Incision clean/dry/intact. No drainage or signs of infection.) GI Palp: Yes Soft to palpation and No Tenderness to palpation present (GI) Auscultation: normal bowel sounds Other: Ileal conduit in the right lower quadrant with clear urine output Neuro: General: moves all extremities Cranial nerves: Yes CN's II-XII intact bilaterally Speech: normal speech Extrem: General: no calf tenderness and no edema Psych: Mental Status: mental status grossly normal Attitude: cooperative Thought process: Normal thought process present Thought content: Yes Normal thought content present Objective Data Vital Signs Vital Signs: Vital Signs - 24 hr 01/20/20 14:00 01/20/20 17:41 01/20/20 18:00 Temperature 36.7 C 37.1 C Pulse Rate 99 99 93 Respiratory Rate 18 16 Blood Pressure 159/108 H 136/101 H Pulse Oximetry 99 97 01/20/20 22:00 01/21/20 06:00 01/21/20 09:00 Temperature 36.6 C 36.7 C Pulse Rate 81 78 Respiratory Rate 18 16 Blood Pressure 137/99 H 149/97 H Pulse Oximetry 98 99 94 Intake/Output Intake/Output: Intake & Output 01/18/20 01/19/20 01/20/20 01/21/20 23:59 23:59 23:59 23:59 Intake Total 1936 3375 2620 680 Output Total 1100 2550 1500 450 Balance 581 895 0523 230 Meds/Results Medications: Active Medications Generic Name Dose Route Start Last Admin Trade Name Freq PRN Reason Stop Dose Admin Hydrocodone Bitart/Acetaminophen 1 tab 01/20/20 12:19 [place] 5-325 Mg PO Q4H PRN Pain Rated 4-6 Hydrocodone Bitart/Acetaminophen 1 tab 01/20/20 12:19 01/20/20 20:40 [place] 10-325 Mg PO 1 tab Q4H PRN Administration Pain Rated 7-10 Carvedilol 25 mg 01/20/20 17:00 01/21/20 08:44 Coreg PO 25 mg BID MONICA Administration Diphenhydramine HCl 25 mg 01/19/20 14:56 01/20/20 21:51 Benadryl Cap PO 25 mg HS PRN Administration Insomnia Enoxaparin Sodium 40 mg 01/18/20 09:00 01/21/20 08:45 Lovenox SUB-Q 40 mg DAILY MONICA Administration Hydralazine HCl 10 mg 01/18/20 07:24 01/19/20 22:15 Apresoline Hcl Inj IV PUSH 10 mg Q8H PRN Administration Blood Pressure - High Hydromorphone HCl 0.5 mg 01/17/20 13:32 Dilaudid Inj IV PUSH Q2H PRN Pain Rated 4-6 Hydromorphone HCl 1 mg 01/17/20 13:32 04/0
--- NOTE | 2020-01-21 13:08 | PM.IMPN ---
Progress Note: A&P Assessment and Plan (1) SBO (small bowel obstruction): Code(s): K56.609 - Unspecified intestinal obstruction, unspecified as to partial versus complete obstruction Status: Acute Assessment and Plan: POD #4 exploratory laparotomy with adhesiolysis/release of SBO per Dr. Moreno. Patient doing well postoperatively. This was patient's 3rd recent partial SBO. Continued Full Liquid diet today. He is tolerating it well. Surgery will advance diet as tolerated. IVF hydration discontinued yesterday. Antiemetics as needed Post op care per Surgical team (2) Neutropenia: Code(s): D70.9 - Neutropenia, unspecified Status: Acute Assessment and Plan: Likley secondary to retching/N/V. WBC was 5.1, improved. Monitor CBCd. (3) Normocytic anemia: Code(s): D64.9 - Anemia, unspecified Status: Acute Assessment and Plan: Likely anemia of chronic disease - No signs of acute blood loss. No coffee ground/bloody emesis noted in NG output. Hgb 9.4 stable Monitor H/H transfuse prn. (4) Thrombocytosis: Code(s): D47.3 - Essential (hemorrhagic) thrombocythemia Status: Chronic Assessment and Plan: Plt normal today at 297 Monitor daily (5) Hypertension: Qualifiers: Hypertension type: essential hypertension Qualified Code(s): I10 - Essential (primary) hypertension Code(s): I10 - Essential (primary) hypertension Status: Chronic Assessment and Plan: BP 149/97 today; stable. Monitor blood pressure. Continue Coreg since BP is improved and restarting Sacubitril-Valsartan tonight. Resume BP meds when appropriate PRN IV antihypertensives as needed. (6) S/P ileal conduit: Code(s): Z93.6 - Other artificial openings of urinary tract status Status: Chronic Assessment and Plan: Stable. Normal output. UC growing kebsiella pneumoniae and proteus vulgaris; similar growth on previous hospital stay UC. Could be related to colonization. Will defer antibiotic therapy at this time since his WBC is normal, with stable vital signs. 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 Moreno. The patient reports feeling okay today, tolerating his diet advancement to Full Liquid. He has been refusing PT/OT and still wants to go home once he is discharged. He has been walking to the bathroom with the aid for assistance. He denies any nausea at this time. He is still passing gas, but no bowel movements yet. Denies any nausea, vomiting, chest pain, shortness of breath, cough, fever, chills, leg swelling, calf pain or any other symptoms at this time. Review of Systems Review of Systems: All systems reviewed & are unremarkable except as noted in HPI and below Exam Narrative: Exam Narrative: General: 74-year-old man sitting up in bed watching TV. Appears comfortable. In no acute distress. Skin: No jaundice or cyanosis. Good skin turgor. Neck: Full range of motion. Supple. Respirato
[2020-01-21 14:00] VITALS: BP 160/90; PULSE 72; RESP 16; TEMP 36.4; O2SAT 98
[2020-01-21] MEDS: MAGNESIUM HYDROXIDE SUSP 30 ML UDC PO (15:57)
[2020-01-21] MEDS: DULOXETINE 60 MG CAPSULE.DR PO (15:57)
[2020-01-21] MEDS: SACUBITRIL/VALSARTAN 49-51 MG TABLET 1 TABLET PO (16:49)
[2020-01-21] MEDS: GABAPENTIN 300 MG CAPSULE PO (20:32)
[2020-01-21 22:00] VITALS: BP 126/67; PULSE 69; RESP 16; TEMP 36.7; O2SAT 98
[2020-01-22 05:47] LABS: Hematocrit 25.4 % (42.0-52.0); Hemoglobin 8.5 g/dL (14.0-18.0); Mean Corpuscular HGB Conc 33.5 g/dl (32-36); Mean Corpuscular Hemoglobin 30.4 pg (26-34); Mean Corpuscular Volume 90.7 fl (80-100); Mean Platelet Volume 9.4 fl (7.4-10.4); Platelet Count Result 302 k/mm3 (150-375); Red Cell Distribution Width 15.3 % (11.5-14.5); White Blood Count 5.1 K/mm3 (4.5-10.0)
[2020-01-22 05:56] VITALS: BP 135/85; PULSE 63; RESP 16; TEMP 36.7; O2SAT 98
[2020-01-22 06:11] LABS: Blood Urea Nitrogen 16 mg/dL (9-20); Calcium 8.2 mg/dL (8.4-10.2); Carbon Dioxide 22 mmol/L (22-30); Chloride 101 mmol/L (98-107); Estimated CRCL calculation 69 ml/min; Estimated Glomerular Filt Rate > 60; Glucose 87 mg/dL (75-110); Potassium 3.7 mmol/L (3.4-5.0); Sodium 128 mmol/L (137-145)
[2020-01-22 08:24] VITALS: PULSE 63
[2020-01-22] MEDS: carvediloL 25 MG TABLET PO ×2 (08:24→16:58)
[2020-01-22] MEDS: DULOXETINE 60 MG CAPSULE.DR PO (08:24)
[2020-01-22] MEDS: SACUBITRIL/VALSARTAN 49-51 MG TABLET 1 TABLET PO ×2 (08:24→16:57)
[2020-01-22] MEDS: ENOXAPARIN 40 MG/0.4 ML SYRINGE SUB-Q (08:24)
--- NOTE | 2020-01-22 08:57 | PM.PNGS ---
Progress Note: A&P Assessment and Plan (1) SBO (small bowel obstruction): Code(s): K56.609 - Unspecified intestinal obstruction, unspecified as to partial versus complete obstruction Status: Acute Assessment and Plan: s/p ex lap, RUBY on 01/16, doing well, advance to cardiac diet, home in am if doing well, encourage ambulation Subjective Subjective Date/Time Seen: 01/22/20 08:57 Interval history: Pt doing well, reports no issues. Pt dorcas full liquids s issue. Pt having normal bowel fxn. Review of Systems Constitutional: Constitutional: Denies fatigue and Denies weakness Gastrointestinal: Gastrointestinal: Denies abdominal pain, Denies bloating, Denies constipation, Denies nausea and Denies vomiting Exam Const: General: no acute distress Resp: Auscultation: clear to auscultation bilaterally Cardio: Rate: regular rate Rhythm: regular rhythm GI: Auscultation: normal bowel sounds Other: incision C/D/I, soft, ND Objective Data Vital Signs Vital Signs: Vital Signs - 24 hr 01/21/20 09:00 01/21/20 14:00 01/21/20 22:00 Temperature 36.4 C 36.7 C Pulse Rate 72 69 Respiratory Rate 16 16 Blood Pressure 160/90 H 126/67 Pulse Oximetry 94 98 98 01/22/20 05:56 01/22/20 08:24 Temperature 36.7 C Pulse Rate 63 63 Respiratory Rate 16 Blood Pressure 135/85 Pulse Oximetry 98 Intake/Output Intake/Output: Intake & Output 01/19/20 01/20/20 01/21/20 01/22/20 23:59 23:59 23:59 23:59 Intake Total 3375 2620 2550 550 Output Total 2550 1500 825 750 Balance 825 1120 1725 -200 Meds/Results Medications: Active Medications Generic Name Dose Route Start Last Admin Trade Name Freq PRN Reason Stop Dose Admin Hydrocodone Bitart/Acetaminophen 1 tab 01/20/20 12:19 [place] 5-325 Mg PO Q4H PRN Pain Rated 4-6 Hydrocodone Bitart/Acetaminophen 1 tab 01/20/20 12:19 01/22/20 02:00 [place] 10-325 Mg PO 1 tab Q4H PRN Administration Pain Rated 7-10 Carvedilol 25 mg 01/20/20 17:00 01/22/20 08:24 Coreg PO 25 mg BID MONICA Administration Diphenhydramine HCl 25 mg 01/19/20 14:56 01/21/20 20:32 Benadryl Cap PO 25 mg HS PRN Administration Insomnia Duloxetine HCl 60 mg 01/21/20 09:00 01/22/20 08:24 Cymbalta PO 60 mg DAILY MONICA Administration Enoxaparin Sodium 40 mg 01/18/20 09:00 01/22/20 08:24 Lovenox SUB-Q 40 mg DAILY MONICA Administration Gabapentin 300 mg 01/21/20 21:00 01/21/20 20:32 Neurontin PO 300 mg HS MONICA Administration Hydralazine HCl 10 mg 01/18/20 07:24 01/19/20 22:15 Apresoline Hcl Inj IV PUSH 10 mg Q8H PRN Administration Blood Pressure - High Hydromorphone HCl 0.5 mg 01/17/20 13:32 Dilaudid Inj IV PUSH Q2H PRN Pain Rated 4-6 Hydromorphone HCl 1 mg 01/17/20 13:32 01/19/20 17:58 Dilaudid Inj IV PUSH 1 mg Q2H PRN Administration Pain Rated 7-10 Ondansetron HCl 4 mg 01/16/20 08:18 01/16/20 20:04 Zofran Inj IV PUSH 4 mg Q6H PRN Administration Nausea And Vomiting Ondansetron HCl 4 mg 01/17/20 12:13 Zofran Inj IV PUSH ONCE PRN Nausea Sacubitril/Valsartan 1 tablet 01/21/20 17:00 01/22/20 08:24 Entresto 49 Mg-51 Mg Tablet PO 1 tablet BID MONICA Administration Radiology Results: ITS Impressions Abdomen X-Ray 01/16/20 08:32 IMPRESSION: 1. Is a gastric tube in the stomach. 2. Small bowel obstruction. Abdomen/Pelvis CT 01/16/20 09:50 IMPRESSION: 1. Small bowel obstruction which appears to be related to volvulus with swirled appearance to the small bowel at the transition point. 2. Mild mesenteric edema and wall thickening of the small bowel near the transition point which raises the possibility of ischemia. Consider correlation with lactate levels. 3. Small sliding-type hiatal hernia with persistent prominent wall thickening the distal esophagus. This could be related to reflux but if not previously performed would
--- NOTE | 2020-01-22 09:35 | PM.IMPN ---
Progress Note: A&P Assessment and Plan (1) SBO (small bowel obstruction): Code(s): K56.609 - Unspecified intestinal obstruction, unspecified as to partial versus complete obstruction Status: Acute Assessment and Plan: POD #5 exploratory laparotomy with adhesiolysis/release of SBO per Dr. Moreno. Patient doing well postoperatively. This was patient's 3rd recent partial SBO. Advanced to Heart Healthy diet. Surgery states if he is feeling well by the morning he can be discharged. Antiemetics as needed Post op care per Surgical team (2) Neutropenia: Code(s): D70.9 - Neutropenia, unspecified Status: Acute Assessment and Plan: Likley secondary to retching/N/V. WBC was 5.1, stable Monitor CBCd. (3) Normocytic anemia: Code(s): D64.9 - Anemia, unspecified Status: Acute Assessment and Plan: Likely anemia of chronic disease - No signs of acute blood loss. No coffee ground/bloody emesis noted in NG output. Hgb 8.5 decreased. Repeat H&H at 1400 showed Hgb stable at 8.5 and Hct 26.1% Monitor H/H transfuse prn. (4) Thrombocytosis: Code(s): D47.3 - Essential (hemorrhagic) thrombocythemia Status: Chronic Assessment and Plan: Plt normal today at 302 Monitor daily (5) Hypertension: Qualifiers: Hypertension type: essential hypertension Qualified Code(s): I10 - Essential (primary) hypertension Code(s): I10 - Essential (primary) hypertension Status: Chronic Assessment and Plan: BP 135/85 today; stable. Monitor blood pressure. Continue Coreg and Sacubitril-Valsartan Resume BP meds when appropriate PRN IV antihypertensives as needed. (6) S/P ileal conduit: Code(s): Z93.6 - Other artificial openings of urinary tract status Status: Chronic Assessment and Plan: Stable. Normal output. UC growing kebsiella pneumoniae and proteus vulgaris; similar growth on previous hospital stay UC. Could be related to colonization. Will defer antibiotic therapy at this time since his WBC is normal, with stable vital signs. 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 Moreno. The patient reports feeling good today, tolerating Full Liquid. He has been walking to the bathroom with the aid for assistance. He denies any nausea at this time. He is still passing gas, and had 2 bowel movements after milk of magnesia yesterday. No bowel movements today. Informed the patients H&H dropped again today. He denies any dark stools, bloody stools, abnormal bleeding. Denies lightheadedness, dizziness, fatigue. Denies any nausea, vomiting, chest pain, shortness of breath, cough, fever, chills, leg swelling, calf pain or any other symptoms at this time. Review of Systems Review of Systems: All systems reviewed & are unremarkable except as noted in HPI and below Exam Narrative: Exam Narrative: General: 74-year-old man sitting up in bed taking a nap. Appears comfortable. In no acute distress. Skin: No
[2020-01-22 13:39] LABS: Hematocrit 26.1 % (42.0-52.0); Hemoglobin 8.5 g/dL (14.0-18.0)
[2020-01-22 14:00] VITALS: BP 128/78; PULSE 72; RESP 16; TEMP 36.8; O2SAT 98
[2020-01-22 16:58] VITALS: PULSE 72
[2020-01-22] MEDS: GABAPENTIN 300 MG CAPSULE PO (20:11)
[2020-01-22 22:00] VITALS: BP 142/90; PULSE 62; RESP 20; TEMP 36.7; O2SAT 99
[2020-01-23 05:02] LABS: Hematocrit 25.6 % (42.0-52.0); Hemoglobin 8.6 g/dL (14.0-18.0)
[2020-01-23 05:30] LABS: Blood Urea Nitrogen 12 mg/dL (9-20); Carbon Dioxide 19 mmol/L (22-30); Chloride 104 mmol/L (98-107); Estimated CRCL calculation 76 ml/min; Estimated Glomerular Filt Rate > 60; Glucose 88 mg/dL (75-110); Magnesium 1.9 mg/dL (1.6-2.3); Potassium 3.9 mmol/L (3.4-5.0); Sodium 126 mmol/L (137-145)
[2020-01-23 06:00] VITALS: BP 157/88; PULSE 60; RESP 20; TEMP 36.8; O2SAT 98
[2020-01-23 08:44] VITALS: PULSE 60
[2020-01-23] MEDS: carvediloL 25 MG TABLET PO (08:44)
[2020-01-23] MEDS: DULOXETINE 60 MG CAPSULE.DR PO (08:44)
[2020-01-23] MEDS: SACUBITRIL/VALSARTAN 49-51 MG TABLET 1 TABLET PO (08:44)
[2020-01-23] MEDS: ENOXAPARIN 40 MG/0.4 ML SYRINGE SUB-Q (08:44)
[2020-01-23 09:20] LABS: Iron 26 ug/dL (49-181)
[2020-01-23 09:27] LABS: Transferrin 123 mg/dL (206-381)
[2020-01-23 09:30] LABS: Percent Iron Saturation 14 % (20-50)
--- NOTE | 2020-01-23 09:47 | PM.PNGS ---
Progress Note: A&P Assessment and Plan (1) SBO (small bowel obstruction): Code(s): K56.609 - Unspecified intestinal obstruction, unspecified as to partial versus complete obstruction Status: Acute Assessment and Plan: s/p ex lap, RUBY - doing well, ok to dc home from surgical standpoint, f/u c Dr. Moreno in 1 wk for staple removal Subjective Subjective Date/Time Seen: 01/23/20 09:47 Pt feels good, no complaints. Pt dorcas diet, having normal bowel fxn. Pt OOB and ambulating s issue. Review of Systems Constitutional: Constitutional: Denies anorexia, Denies chills, Denies fever(s), Denies lethargy and Denies malaise Cardiovascular: Cardiovascular: Denies chest pain Respiratory: Respiratory: Denies dyspnea Gastrointestinal: Gastrointestinal: Denies abdominal pain, Denies constipation, Denies diarrhea, Denies nausea and Denies vomiting Exam Const: General: cooperative, healthy appearing, comfortable and no acute distress Resp: Effort & Inspection: normal respiratory effort Cardio: Rate: regular rate Rhythm: regular rhythm GI: Inspection: normal to inspection and incision GI Palp: No abdominal tenderness and Yes Soft to palpation Auscultation: normal bowel sounds Objective Data Vital Signs Vital Signs: Vital Signs - 24 hr 01/22/20 14:00 01/22/20 16:58 01/22/20 22:00 Temperature 36.8 C 36.7 C Pulse Rate 72 72 62 Respiratory Rate 16 20 Blood Pressure 128/78 142/90 H Pulse Oximetry 98 99 01/23/20 06:00 01/23/20 08:44 Temperature 36.8 C Pulse Rate 60 60 Respiratory Rate 20 Blood Pressure 157/88 H Pulse Oximetry 98 Intake/Output Intake/Output: Intake & Output 01/20/20 01/21/20 01/22/20 01/23/20 23:59 23:59 23:59 23:59 Intake Total 2620 2550 2170 450 Output Total 8620 384 1807 1450 Balance 1120 1725 770 -1000 Meds/Results Medications: Active Medications Generic Name Dose Route Start Last Admin Trade Name Freq PRN Reason Stop Dose Admin Hydrocodone Bitart/Acetaminophen 1 tab 01/20/20 12:19 Cromwell 5-325 Mg PO Q4H PRN Pain Rated 4-6 Hydrocodone Bitart/Acetaminophen 1 tab 01/20/20 12:19 01/22/20 02:00 [place]well 10-325 Mg PO 1 tab Q4H PRN Administration Pain Rated 7-10 Carvedilol 25 mg 01/20/20 17:00 01/23/20 08:44 Coreg PO 25 mg BID MONICA Administration Diphenhydramine HCl 25 mg 01/19/20 14:56 01/22/20 20:11 Benadryl Cap PO 25 mg HS PRN Administration Insomnia Duloxetine HCl 60 mg 01/21/20 09:00 01/23/20 08:44 Cymbalta PO 60 mg DAILY MONICA Administration Enoxaparin Sodium 40 mg 01/18/20 09:00 01/23/20 08:44 Lovenox SUB-Q 40 mg DAILY MONICA Administration Gabapentin 300 mg 01/21/20 21:00 01/22/20 20:11 Neurontin PO 300 mg HS MONICA Administration Hydralazine HCl 10 mg 01/18/20 07:24 01/19/20 22:15 Apresoline Hcl Inj IV PUSH 10 mg Q8H PRN Administration Blood Pressure - High Hydromorphone HCl 0.5 mg 01/17/20 13:32 Dilaudid Inj IV PUSH Q2H PRN Pain Rated 4-6 Hydromorphone HCl 1 mg 01/17/20 13:32 01/19/20 17:58 Dilaudid Inj IV PUSH 1 mg Q2H PRN Administration Pain Rated 7-10 Ondansetron HCl 4 mg 01/16/20 08:18 01/16/20 20:04 Zofran Inj IV PUSH 4 mg Q6H PRN Administration Nausea And Vomiting Ondansetron HCl 4 mg 01/17/20 12:13 Zofran Inj IV PUSH ONCE PRN Nausea Sacubitril/Valsartan 1 tablet 01/21/20 17:00 01/23/20 08:44 Entresto 49 Mg-51 Mg Tablet PO 1 tablet BID MONICA Administration Radiology Results: ITS Impressions Abdomen X-Ray 01/16/20 08:32 IMPRESSION: 1. Is a gastric tube in the stomach. 2. Small bowel obstruction. Abdomen/Pelvis CT 01/16/20 09:50 IMPRESSION: 1. Small bowel obstruction which appears to be related to volvulus with swirled appearance to the small bowel at the transition point. 2. Mild mesenteric edema and wall thickening of the small bowel near the transi
[2020-01-23 11:52] LABS: Sodium Urine Random 67 meq/L
[2020-01-23 11:58] LABS: Creatinine Urine 54.4 mg/dL
--- NOTE | 2020-01-23 13:28 | PM.DS ---
DS: Diagnosis Admitting Diagnosis Admitting Diagnosis: Nausea with vomiting, unspecified Discharge Diagnosis (1) SBO (small bowel obstruction): Code(s): K56.609 - Unspecified intestinal obstruction, unspecified as to partial versus complete obstruction Status: Acute Assessment and Plan: POD #6 exploratory laparotomy with adhesiolysis/release of SBO per Dr. Moreno. Patient doing well postoperatively. This was patient's 3rd recent partial SBO. Advanced to Heart Healthy diet and was tolerating it without any issues. Surgery evaluated the patient and feels he can be discharged home and follow up with Dr. Bill in 1 week for surgery removal. He can take Tylenol as needed for pain at home. (2) Hyponatremia: Code(s): E87.1 - Hypo-osmolality and hyponatremia Status: Acute Assessment and Plan: The patient's sodium this morning was 126 Upon review of patient's prior records shows that his sodium ranges between 135-127. The patient is on SSRI which can lower his sodium level. Repeat Sodium this afternoon was 127. Improving. His urine sodium was elevated at 67, which could be secondary to postop SIADH I will recommend the patient decreased his fluid intake to 1 L of fluid per day Will recheck a BMP early next week and have him follow-up with his primary care provider (3) Neutropenia: Code(s): D70.9 - Neutropenia, unspecified Status: Acute Assessment and Plan: Likely secondary to retching/N/V. WBC had been stable at 5 and was not checked this morning. (4) Normocytic anemia: Code(s): D64.9 - Anemia, unspecified Status: Acute Assessment and Plan: Likely anemia of chronic disease - No signs of acute blood loss. No coffee ground/bloody emesis noted in NG output. Hgb this morning was stable at 8.6, and repeat this afternoon was improved at 9.1. (5) Thrombocytosis: Code(s): D47.3 - Essential (hemorrhagic) thrombocythemia Status: Chronic Assessment and Plan: Plt had been normal and was not checked today. (6) Hypertension: Qualifiers: Hypertension type: essential hypertension Qualified Code(s): I10 - Essential (primary) hypertension Code(s): I10 - Essential (primary) hypertension Status: Chronic Assessment and Plan: BP 157/88 today; slightly elevated but this was prior to his medications been given. Continue home medications (7) S/P ileal conduit: Code(s): Z93.6 - Other artificial openings of urinary tract status Status: Chronic Assessment and Plan: Stable. Normal output. UC growing kebsiella pneumoniae and proteus vulgaris; similar growth on previous hospital stay UC. Could be related to colonization. Will defer antibiotic therapy at this time since his WBC is normal, with stable vital signs. 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 Initial vitals showed, temperature was 97.7?, blood pressure 154/89, heart rate slightly tachycardic at 103, respiratory rate 21, o
[2020-01-23 13:43] LABS: Hematocrit 28.6 % (42.0-52.0); Hemoglobin 9.1 g/dL (14.0-18.0)
[2020-01-23 13:55] LABS: Sodium 127 mmol/L (137-145)
== END 2020-01-23 14:20 | disposition home health service (06) | DRG 337 ==
LOC: ANHED 22:19 → ANH2MED 01-16 00:49
PROVIDERS: Physician Assistant; Surgery; Admitting Provider Family Medicine; Emergency Provider Emergency Medicine; PCP Internal Medicine; Visit Provider Internal Medicine
PROC: 0DNB0ZZ Release Ileum, Open Approach (ICD-10-PCS; CPT 49000; principal; 2020-01-17 10:00)
DX: K56.51 Intestinal adhesions [bands], with partial obstruction (principal); F17.210 Nicotine dependence, cigarettes, uncomplicated; I10 Essential (primary) hypertension; F32.9 Major depressive disorder, single episode, unspecified; Z85.79 Personal history of other malignant neoplasms of lymphoid, hematopoietic and related tissues; Z85.51 Personal history of malignant neoplasm of bladder; Z93.6 Other artificial openings of urinary tract status
CPT/HCPCS: 36415; 71046; 74177; 80048; 80053; 81001; 82570; 82728; 83540; 83550; 83735; 84295; 84300; 84466; 85014; 85018; 85025; 85027; 87086; 87088; 96361; 96374; 96375; 96376; 99285; A9270; G0378; J0131; J0330; J0360; J0690; J1100; J1170; J1200; J1650; J2270; J2370; J2405; J2704; J2710; J3010; J3475; J3480; J7030; J7120; Q9967

== ENCOUNTER 2020-09-12 12:45 | Outpatient (CLI) | payer OTHER, SELFPAY ==
[2020-09-12 13:28] LABS: Basophils Absolute Auto 0.1 K/mm3 (0.0-0.1); Basophils Percent Auto 0.5 % (0.2-1.2); Eosinophils Absolute Auto 0.2 K/mm3 (0-0.3); Eosinophils Percent Auto 2.2 % (0-4.4); Hematocrit 32.3 % (42.0-52.0); Hemoglobin 10.8 g/dL (14.0-18.0); Immature Granulocyte Absolute 0.04 K/mm3 (0.00-0.031); Immature Granulocyte Percent A 0.4 % (0-0.5); Lymphocytes Absolute Auto 1.16 K/mm3 (0.9-3.2); Lymphocytes Percent Auto 12.3 % (18.3-44.2); Mean Corpuscular HGB Conc 33.4 g/dl (32-36); Mean Corpuscular Hemoglobin 29.5 pg (26-34); Mean Corpuscular Volume 88.3 fl (80-100); Mean Platelet Volume 8.6 fl (7.4-10.4); Monocytes Absolute Auto 0.6 K/mm3 (0.1-0.6); Monocytes Percent Auto 6.3 % (2.6-8.5); Neutrophils Absolute Auto 7.4 K/mm3 (1.3-6.7); Neutrophils Percent Auto 78.3 % (45.5-73.1); Platelet Count Result 537 k/mm3 (150-375); Red Blood Count 3.66 M/mm3 (4.6-6.20); Red Cell Distribution Width 15.5 % (11.5-14.5); White Blood Count 9.5 K/mm3 (4.5-10.0)
[2020-09-12 13:45] LABS: Alanine Aminotransferase 12 U/L (4-50); Albumin Level 3.4 g/dL (3.5-5.1); Alkaline Phosphatase 100 U/L (38-126); Anion Gap 10 mmol/L (8-16); Aspartate Amino Transferase 26 U/L (17-59); Bilirubin,Total 0.3 mg/dL (0.2-1.3); Blood Urea Nitrogen 21 mg/dL (9-20); Calcium 9.1 mg/dL (8.4-10.2); Carbon Dioxide 22 mmol/L (22-30); Chloride 99 mmol/L (98-107); Estimated Glomerular Filt Rate > 60; Glucose 116 mg/dL (75-110); Potassium 4.2 mmol/L (3.4-5.0); Sodium 131 mmol/L (137-145)
== END 2020-09-12 12:46 | disposition home or self-care (01) ==
LOC: ANHLAB 12:46
PROVIDERS: PCP Internal Medicine; Visit Provider Internal Medicine
DX: R53.83 Other fatigue (principal)
CPT/HCPCS: 36415; 80053; 85025

== ENCOUNTER 2020-09-19 17:35 | Inpatient (IN) | payer OTHER, SELFPAY ==
[2020-09-19] VITALS (37 sets, daily range): BP systolic 90–137; BP diastolic 57–91; PULSE 72–96; RESP 11–22; TEMP 37.1; O2SAT 93–100
--- NOTE | ~2020-09-19 | XR_ITS ---
EXAMINATION: XR abdomen obstructive series EXAM DATE: 09/20/2020 05:40 INDICATION: Small bowel obstruction. TECHNIQUE: Frontal upright projection of the upper abdomen, frontal projection of the lower abdomen f or interpretation. Comparison is made to prior examination from 09/19/2020. FINDINGS: Feeding tube has retracted, tip is just above the gastroesophageal junction. This should b e advanced 5-10 cm. There is no evidence of free intraperitoneal gas. Again there are multiple loops of severely distende d small bowel consistent with small bowel obstruction. There is a moderate amount of colonic stool. T here is no organomegaly. There are mild bony degenerative changes. Some contrast within the kidneys. IMPRESSION: 1. Feeding tube tip just above diaphragm, should be advanced 5-10 cm. 2. Small bowel obstruction. Reviewed, dictated and finalized at location A. E BUILDER
--- NOTE | ~2020-09-19 | XR_ITS ---
EXAMINATION: XR abdomen NG/feed tube insert DATE: 09/19/2020 22:11 INDICATION: Nasogastric tube insertion TECHNIQUE: A supine view of the abdomen and lower chest was obtained for evaluation of feeding tube placement. COMPARISON: CT dated 09/19/2020 FINDINGS: Nasogastric tube extends to the level of the gastroesophageal junction where it coils back 5 cm upon itself with the distal tip in the distal esophagus. Again seen are dilated loops of gas-filled small bowel in the upper abdomen consistent with previous noted bowel obstruction. Excreted contrast in the from the recent contrast enhanced CT seen in the right renal collecting system as well as within a r ight sided ileal conduit. There is mild right hydronephrosis. Mild linear discoid atelectasis in the left midlung zone. IMPRESSION: 1. Nasogastric tube extends to the level of the gastroesophageal junction and coils back upon itself with tip in the distal esophagus. 2. Small bowel obstruction. 3. Mild right hydronephrosis with additional contrast seen within the right abdominal ileal conduit. Reviewed, dictated and finalized at location A. SHED GARMENT INSPECTOR IMPRESSION: 1. Nasogastric tube extends to the level of the gastroesophageal junction and c oils back upon itself with tip in the distal esophagus. 2. Small bowel obstruction. 3. Mild right hydronephrosis with additional contrast seen within the right abd ominal ileal conduit.
--- NOTE | ~2020-09-19 | XR_ITS ---
EXAMINATION: XR abdomen obstructive series EXAM DATE: 09/21/2020 06:17 INDICATION: F/u on partial small bowel obstruction vs complete SBO vs ileus. TECHNIQUE: Frontal upright projection of the upper abdomen, frontal projection of the lower abdomen f or interpretation. Comparison is made to prior examination from 09/20/2020. Correlation was made with CT 09/19. FINDINGS: Feeding tube no longer identified. Multiple loops of severely distended air-filled small b owel are present. There is also moderate amount of colonic stool. Appearance consistent with small kenn wel obstruction. No free intraperitoneal gas. Lung bases are unremarkable. There are bony degenerativ e changes. Patient has right-sided pelvic Paget's disease. Mild lumbar levoscoliosis. IMPRESSION: 1. Persistent multiple loops of severely dilated small bowel, likely small bowel obstruction correla ting to CT. No feeding tube identified. 2. Moderate amount of colonic stool. Reviewed, dictated and finalized at location A. NESS LAWYER IMPRESSION: 1. Persistent multiple loops of severely dilated small bowel, likely small bow el obstruction correlating to CT. No feeding tube identified. 2. Moderate amount of colonic stool.
--- NOTE | ~2020-09-19 | CT_ITS ---
EXAMINATION: CT abdomen pelvis w con DATE: 09/19/2020 20:13 INDICATION: Abdominal pain. Nausea, vomiting and chills. TECHNIQUE: Computed tomography (CT) of the abdomen and pelvis was performed with 100 mL Omnipaque-350 intravenous contrast. Automated exposure control and iterative reconstruction technique were employe d. The dose-length product was 489.89 mGy-cm. COMPARISON: 01/15/2020 FINDINGS: Minimal atelectasis in the bilateral lower lobes. Cardiomegaly. Aortic valve calcification. No perica rdial or pleural effusion. Small sliding-type hiatal hernia. No significant change in a 4.5 cm cyst i n the left hepatic lobe. A prior 10 cm cyst in segment 2 of the liver appears to have ruptured and is largely decompressed spleen, pancreas and bilateral adrenal glands are normal. Bilateral renal cysts measuring up to 3.3 cm the left kidney. Postoperative change of prior cystectomy with a right sided ileal conduit. There is also scattered cortical scarring at both kidneys. There is a large amount of stool scattered throughout the colon. There are multiple dilated loops of gas and fluid-filled small bowel in the anterior abdomen with transition point to decompressed small bowel in the central abdome n immediately distal to an anastomotic suture line where the bowel undergoes sharp 180 degree change in direction consistent with a small bowel obstruction. No free intraperitoneal gas or fluid. There i s a new 13 x 10 mm retroperitoneal soft tissue nodule in the posterior right hemipelvis alongside the distal sigmoid colon likely representing an enlarged lymph node. There is been interval increase in size of a few additional retroperitoneal lymph nodes, for reference a left external iliac chain lymph node near the common iliac bifurcation now measures 11 mm in maximal short axis diameter versus prev iously it measured 8 mm. There is also an 11 mm left para-aortic lymph node slightly caudal to the le ft renal vein which is increased from 6 mm. Again seen are sclerotic bone lesions most prominent thro ughout much of the right innominate bone and smaller regions in the left innominate bone and in the L 2 vertebral body which appear unchanged. There is however new sclerotic lesion at the cephalad aspect of the anterior left eighth rib. IMPRESSION: 1. Small bowel obstruction with transition point immediately distal to the anastomotic suture line jessica yu at the site of an ileal conduit harvest. 2. Increase in size of a few retroperitoneal lymph nodes in the abdomen and pelvis raising concern fo r metastatic disease. 3. No significant interval change in sclerosis at L2 and in the left and right innominate bones which could be related to peptic disease or metastatic disease. New sclerotic lesion at the anterior left eighth rib is suspicious for metastatic disease with differential including healing nondisplaced rib fracture. Consider bone scan for further evaluation. 4. Small sliding-type hiatal hernia. Reviewed, dictated and finalized at location A. L TRIM TOOL SETTER IMPRESSION: 1. Small bowel obstruction with transition point immediately distal to the anas tomotic suture line likely at the site of an ileal conduit harvest. 2. Increase in size of a few retroperitoneal lymph nodes in the abdomen and pel vis raising concern for metastatic disease. 3. No significant interval change in sclerosis at L2 and in the left and right innominate bones which could be related to peptic disease or metastatic disease . New sclerotic lesion at the anterior left eighth rib is suspicious for metast atic disease with differential including healing nondisplaced rib fracture. Con clinical fellow bone scan for further evaluation. 4. Small sliding-type hiatal hernia.
--- NOTE | ~2020-09-19 | XR_ITS ---
EXAMINATION: XR sm bowel follow through WS EXAM DATE: 09/21/2020 12:44 INDICATION: F/ u on p sbo (see recent CT abd) . TECHNIQUE: [employer] radiograph was acquired. Small bowel series was performed with 400 mL Omnipaque ismael er solution. Images were obtained in radiology department for 2 hours and then patient was sent to [facility] and portable images were obtained. Fluoroscopy time was 0.0 minutes with 12 KUB images availa ble. FINDINGS: On the 15 minute image jejunum is opacified along with multiple loops of severely distended mid small bowel. These further opacify over the next 2 hours. On the 3 hour image there our normal c alibered ileal loops suspected beyond the dilated mid small bowel loops, and also contrast confirmed within the cecum. Possible small amount of contrast within the cecum on the 2.5 hour image. There was gastroesophageal reflux. Patient tolerated the procedure well, did not vomit from ingestion of 400 cc contrast 400 cc contrast IMPRESSION: Severely distended mid small bowel loops with delayed transit time 2.5-3 hours. Probably partial small bowel obstruction. Reviewed, dictated and finalized at location A. ITY TECH
--- NOTE | ~2020-09-19 | XR_ITS ---
EXAMINATION: XR abdomen NG/feed tube rechec DATE: 09/19/2020 22:41 INDICATION: Nasogastric tube advancement TECHNIQUE: A supine view of the abdomen and lower chest was obtained for evaluation of feeding tube placement. COMPARISON: 09/19/2020 at 10:14 PM FINDINGS: Nasogastric tube has been advanced with distal tip in proximal side port now in the body of the stoma ch. Consider multiple dilated loops of gas-filled bowel in the upper abdomen consistent with small kenn wel obstruction. IMPRESSION: 1. Nasogastric tube in expected position within the stomach. 2. Small bowel obstruction. Reviewed, dictated and finalized at location A. ING EXECUTIVE
--- NOTE | ~2020-09-19 | XR_ITS ---
EXAMINATION: XR abdomen NG/feed tube rechec EXAM DATE: 09/20/2020 11:58 INDICATION: NG tube advancement TECHNIQUE: Frontal projection(s) of the abdomen for interpretation. Comparison is made to prior exami nation from earlier same date. FINDINGS: The feeding tube has been advanced, tip is now below the level of the left hemidiaphragm. Side port is just above this level. Again there are multiple loops of air-filled viscus, and moderate amount of colonic stool. Small bowel obstruction. Lung bases unremarkable. There are mild bony degen erative changes. IMPRESSION: 1. Feeding tube tip in stomach, but could be safely advanced 5 cm. 2. Small bowel obstruction. Reviewed, dictated and finalized at location A. STIGATIVE RESEARCH SPECIALIST
[2020-09-19 18:08] LABS: Basophils Percent Auto 0.3 % (0.2-1.2); Eosinophils Percent Auto 0.1 % (0-4.4); Hematocrit 27.7 % (42.0-52.0); Hemoglobin 9.6 g/dL (14.0-18.0); Immature Granulocyte Absolute 0.09 K/mm3 (0.00-0.031); Immature Granulocyte Percent A 0.6 % (0-0.5); Lymphocytes Absolute Auto 0.65 K/mm3 (0.9-3.2); Lymphocytes Percent Auto 4.2 % (18.3-44.2); Mean Corpuscular HGB Conc 34.7 g/dl (32-36); Mean Corpuscular Hemoglobin 29.1 pg (26-34); Mean Corpuscular Volume 83.9 fl (80-100); Mean Platelet Volume 8.7 fl (7.4-10.4); Monocytes Absolute Auto 0.9 K/mm3 (0.1-0.6); Neutrophils Absolute Auto 13.7 K/mm3 (1.3-6.7); Neutrophils Percent Auto 88.8 % (45.5-73.1); Platelet Count Result 493 k/mm3 (150-375); Red Cell Distribution Width 15.2 % (11.5-14.5); White Blood Count 15.4 K/mm3 (4.5-10.0)
[2020-09-19 18:19] LABS: Platelet Estimate Increased (Adequate)
[2020-09-19 18:20] LABS: Ovalocytes 1+ (NORMAL)
[2020-09-19 18:22] LABS: Alanine Aminotransferase 15 U/L (4-50); Albumin Level 3.1 g/dL (3.5-5.1); Alkaline Phosphatase 95 U/L (38-126); Anion Gap 8 mmol/L (8-16); Aspartate Amino Transferase 30 U/L (17-59); Bilirubin,Total 0.4 mg/dL (0.2-1.3); Blood Urea Nitrogen 23 mg/dL (9-20); Calcium 8.8 mg/dL (8.4-10.2); Carbon Dioxide 20 mmol/L (22-30); Chloride 98 mmol/L (98-107); Estimated CRCL calculation 60 ml/min; Estimated Glomerular Filt Rate 59; Glucose 147 mg/dL (75-110); Lipase 16 U/L (23-300); Potassium 4.4 mmol/L (3.4-5.0); Sodium 126 mmol/L (137-145)
--- NOTE | 2020-09-19 19:12 | PC.NURSE ---
patient brought back to ED room 3 from our waiting area. patient has been in waiting area due to no beds available in this ED. here with weakness and abdomen pain. labs sent in triage. on patient monitor. alert. oriented. provider in room.
[2020-09-19] MEDS: FAMOTIDINE 20 MG/2 ML VIAL IV PUSH (19:40)
[2020-09-19] MEDS: SODIUM CHLORIDE 0.9% IV 1,000 ML 999 ML IV CONT ×2 (19:41→21:19)
[2020-09-19] MEDS: ONDANSETRON INJ 4 MG/2 ML VIAL IV PUSH (19:41)
--- NOTE | 2020-09-19 19:55 | ED.ABDPAIN ---
HPI - Abdominal Pain General Chief Complaint: Abdominal Pain Stated Complaint: body aches, low engery, abd pain Time Seen by Provider: 09/19/20 18:53 Source: patient and old records reviewed Mode of arrival: ambulatory Limitations: no limitations History of Present Illness HPI narrative: Patient is 75-year-old male who presents to emergency department from home noting that for the last 2 weeks he has had intermittent cramping in the lower abdomen that intensified today to the point where he felt as though he may have to call EMS patient notes he developed cramping and dry heaves patient with history of cancer with urostomy followed by urology. Patient denies fever or URI symptoms or other complaints presents in no distress does not appear uncomfortable did take hydrocodone for his symptoms prior to arrival Related Data Home Medications Medication Instructions Recorded Confirmed carvedilol 25 mg PO BID 08/30/19 07/03/20 aspirin [Aspir-81] 81 mg PO DAILY 09/24/19 07/03/20 Allergies Allergy/AdvReac Type Severity Reaction Status Date / Time No Known Allergies Allergy Unknown Verified 07/03/20 11:13 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) Which has essentially resolved since chemotherapy CHF (congestive heart failure) Depression Essential hypertension H/O subarachnoid hemorrhage Hearing loss Hernia History of lymphoma Diagnosed in 2018 now in remission Hypertension Hyponatremia 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 Postoperative ileus after bladdder resection Rib fracture September 2019 SBO (small bowel obstruction) Tobacco use Surgical History Surgical History H/O total cystectomy (~08/2019) robotic assisted bladder resection History of bilateral cataract extraction History of bilateral inguinal hernia repair History of bladder surgery resection History of prostatectomy Hx of tonsillectomy S/P robot-assisted surgical procedure Family History Family History Father Patient's father is Chronic obstructive pulmonary disease Mother Patient's mother is Cerebrovascular accident Hypercholesterolemia Sibling Epiglottitis Social History Social History Social History: The patient has traveled all over but not recently. He is not interested in smoking cessation at this time. He is and lives alone. He has 3 children. Primary care physician: Dr. Jamey Brooks Code status: DNR per patient request Smoking packs per day: 1 Smoking cigarettes per day: 20.0 Years smoked: 19 Smoking pack-years: 19.00 Smoking status: Current every day smoker Tobacco type: cigarettes Second hand tobacco smoke exposure: Yes Additional smoking assessment comments: The patient started smoking when he retired of 55 years of age. Alcohol intake: former Drinks per week: 3 Substance use: never Substance use type: does not use Additional living arrangements comments: He is and lives in his own home. He has 4 dogs and 4 cats. He has someone who comes and cleans his house every week. 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 He retired at 55 years of age. After assisted he moved down to [place] and returned to the [place] years ago when he developed lymphoma. Gender identity (if verbalized by the patient): Male Spiritual care concerns:
[2020-09-19 20:10] LABS: Lactic Acid Reflex 1.3 mmol/L (0.7-2.1)
--- NOTE | 2020-09-19 20:55 | PC.NURSE ---
resting on stretcher. denies needs. feels comfortable. took norco at home RETURN TO SERVICE INSPECTOR. all tests resulted. waiting for further orders from provider.
[2020-09-19 20:56] LABS: Add Urine Microscopic? YES; Appearance Urine Cloudy (Clear); Bacteria Urine 1+ /hpf; Bilirubin Urine Negative (Negative); Blood Urine Negative (Negative); Glucose Urine UA Negative (Negative); Ketones Urine Negative (Negative); Leukocyte Esterase Ur 3+ LEU/UL (Negative); Mucus Urine Rare /lpf; Nitrate Urine Positive (Negative); Protein Urine 2+ mg/dL (Negative); Specific Grav Ur 1.018 (1.001-1.035); Squamous Epithelial Cell Urine Rare /hpf (Few); Urobilinogen Urine Negative mg/dL (<2.0); WBC Clumps Urine Present /HPF; WBC Urine >75 /hpf
[2020-09-19 21:01] LABS: Color Urine Yellow (Yellow)
[2020-09-19] MEDS: SODIUM CHLORIDE 0.9% IV 500 ML 999 ML IV CONT (22:30)
[2020-09-20] VITALS (12 sets, daily range): BP systolic 148–172; BP diastolic 88–108; PULSE 76–100; RESP 16–20; TEMP 36.1–37.7; O2SAT 96–100; BMI 21.2; BMI 21.4
--- NOTE | 2020-09-20 00:20 | ADMGEN ---
This patient, Duane Mayo, was admitted to IMU Room 206-01. Patient/family oriented to hospital policies and general routines including ID bracelet, bed and alarms, visiting hours, pain management, procedures, bathroom and other care routines, personal items, smoking policy, room service/diet, and visiting hours. Information on how to activate the Rapid Response Team has been discussed. Patient/Family are encouraged to report perceived risks to care and to ask questions if they do not understand what they are told or what they should do.
[2020-09-20] MEDS: LACTATED RINGERS 1,000 ML 75 ML IV CONT ×2 (02:02→17:46)
[2020-09-20] MEDS: FAMOTIDINE 20 MG/2 ML VIAL IV PUSH ×2 (08:28→20:11)
[2020-09-20] MEDS: MORPHINE SULFATE (*CRX) 4 MG/ML INJ IV PUSH ×3 (12:16→23:57)
--- NOTE | 2020-09-20 12:45 | PM.CNGS ---
Assessment and Plan Assessment and plan (1) SBO (small bowel obstruction): Code(s): K56.609 - Unspecified intestinal obstruction, unspecified as to partial versus complete obstruction Status: Acute Assessment and Plan: CT of the abdomen and pelvis was reviewed and discussed with the patient in detail. He has evidence of a small bowel obstruction and has a long history of abdominal surgeries. This could be caused by adhesions, although the CT suggests the transition point is immediately distal to the anastomotic suture from the site of the ileal conduit harvest. Looking at the operative note from December of 2019 during his exploratory laparotomy, the anastomosis appeared patent and was assessed during surgery. I discussed the case with Dr. George and we will plan to try and treat this conservatively with NG tube decompression and bowel rest. The patient is NPO and has no output from his NG on my assessment. His abdominal films this morning still suggest a small bowel obstruction and it appears the NG tube needs advanced. I asked the nurse to advance his NG tube today and repeat a KUB. We will also continue IV fluids, analgesics, and antiemetics. We will monitor the patient with serial abdominal exams and imaging. Hopefully, this will resolve with conservative management. We will continue to follow along with you. (2) Urinary tract infection: Code(s): N39.0 - Urinary tract infection, site not specified Status: Acute Assessment and Plan: Currently on IV ceftriaxone. UA noted and culture pending. Management per Hospitalist. (3) S/P ileal conduit: Code(s): Z93.6 - Other artificial openings of urinary tract status Status: Chronic (4) H/O total cystectomy: Onset Date: ~08/2019 Code(s): Z90.6 - Acquired absence of other parts of urinary tract Status: Acute (5) Protein calorie malnutrition: Onset Date: Unknown Code(s): E46 - Unspecified protein-calorie malnutrition Status: Chronic Assessment and Plan: May need to consider PPN/TPN if not able to be started on a diet in the next few days. He has not had what sounds like good oral intake for a few months due to poor appetite and lack of taste. (6) Tobacco use: Code(s): Z72.0 - Tobacco use Status: Acute Assessment and Plan: Encouraged cessation. (7) CHF (congestive heart failure): Qualifiers: Heart failure type: systolic Heart failure chronicity: chronic Qualified Code(s): I50.22 - Chronic systolic (congestive) heart failure Code(s): I50.9 - Heart failure, unspecified Status: Acute (8) Diffuse large B cell lymphoma: Qualifiers: Lymphoma site: unspecified region Qualified Code(s): C83.30 - Diffuse large B-cell lymphoma, unspecified site Code(s): C83.30 - Diffuse large B-cell lymphoma, unspecified site Status: Acute Assessment and Plan: Followed by [facility] at [facility]. (9) History of bladder cancer: Code(s): Z85.51 - Personal history of malignant neoplasm of bladder Status: Acute (10) Hypertension: Qualifiers: Hypertension type: essential hypertension Qualified Code(s): I10 - Essential (primary) hypertension Code(s): I10 - Essential (primary) hypertension Status: Chronic (11) Hyponatremia: Code(s): E87.1 - Hypo-osmolality and hyponatremia Status: Acute (12) Abnormal computed tomography of abdomen and pelvis: Code(s): R93.5 - Abnormal findings on diagnostic imaging of other abdominal regions, including retroperitoneum Status: Acute Assessment and Plan: CT of the abd/pelvis noted an increase in size of a few retroperitoneal lymph nodes in the abdomen and pelvis raising concern for metastatic disease, as well as a new sclerotic lesion at the anterior left eighth rib is suspicious for metastatic disease with differential including healing nondi
--- NOTE | 2020-09-20 12:47 | WPDURCON ---
Assessment and Plan Assessment and plan (1) Urinary tract infection: Code(s): N39.0 - Urinary tract infection, site not specified Status: Acute Assessment and Plan: Continue IV antibiotics, tailor to culture results. Will notify Dr. Baez and DR. Garcia to assess further. (2) History of lymphoma: Code(s): Z85.79 - Personal history of other malignant neoplasms of lymphoid, hematopoietic and related tissues Status: Resolved Assessment and Plan: Cancer consult to evaluate metastatic disease. (3) S/P ileal conduit: Code(s): Z93.6 - Other artificial openings of urinary tract status Status: Chronic Assessment and Plan: Bladder cancer history, which is managed by DR. Garcia. Urology Consult Note HPI Date Seen: 09/20/20 Requesting Physician: Gisela Benoit DO Primary Care Provider: Jamey Brooks MD Consult Narrative Narrative: Duane Mayo is a 75 year old male who presented to the ER with c/o intermittent cramping in his lower abdomen x 2 weeks that was worsening. He denies hematuria or foul smelling urine, flank pain, nausea/vomiting or fever/chills. He is a well known patient of Dr. Garcia who had an ileal conduit placed in 10/07 for bladder cancer. He was seeing Dr. Arias at [facility] for lymphoma, but states he has not follow up with them in a long time d/t -. His WBC is elevated at 15.4 and creatinine at 1.20, UA is suspicious for a UTI, culture is pending at this time. His CT scan shows a small bowel obstruction with transition point immediately distal to the anastomotic suture line likely at the site of an ileal conduit harvest. An increase in size of a few retroperitoneal lymph nodes in the abdomen and pelvis raising concern for metastatic disease. No significant interval change in sclerosis at L2 and in the left and right innominate bones which could be related to peptic disease or metastatic disease. New sclerotic lesion at the anterior left eighth rib is suspicious for metastatic disease with differential including healing nondisplaced rib fracture. Consider bone scan for further evaluation. 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) Which has essentially resolved since chemotherapy CHF (congestive heart failure) Depression Essential hypertension H/O subarachnoid hemorrhage Hearing loss Hernia History of lymphoma Diagnosed in 2018 now in remission Hypertension Hyponatremia 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 Postoperative ileus after bladdder resection Rib fracture September 2019 SBO (small bowel obstruction) Tobacco use Surgical History Surgical History H/O total cystectomy (~08/2019) robotic assisted bladder resection History of bilateral cataract extraction History of bilateral inguinal hernia repair History of bladder surgery resection History of prostatectomy Hx of tonsillectomy S/P robot-assisted surgical procedure Family History Family History Father Patient's father is Chronic obstructive pulmonary disease Mother Patient's mother is Cerebrovascular accident Hypercholesterolemia Sibling Epiglottitis Social History Social History (Reviewed 09/20/20 @ 12:53 by Antonia Rivera AP
--- NOTE | 2020-09-20 16:34 | PM.IMHP ---
H&P: HPI History of Present Illness Date/Time: 09/20/20 16:34 Chief complaint: SBO, dehydration, UTI Narrative: Duane Mayo is a 75 year old male with a past medical history urological cancer with urostomy presented emergency department with a complaint abdominal cramping for last 2 weeks prior to coming to emergency department his symptoms were getting progressively worse and the pain was unbearable EMS was called patient was brought to the emergency depart to further evaluate patient had a CT scan of the abdomen which showed: 1. Small bowel obstruction with transition point immediately distal to the anastomotic suture line likely at the site of an ileal conduit harvest. 2. Increase in size of a few retroperitoneal lymph nodes in the abdomen and pelvis raising concern for metastatic disease. 3. No significant interval change in sclerosis at L2 and in the left and right innominate bones which could be related to peptic disease or metastatic disease. New sclerotic lesion at the anterior left eighth rib is suspicious for metastatic disease with differential including healing nondisplaced rib fracture. Consider bone scan for further evaluation. Patient was placed on NG tube, patient states he did have a BM yesterday, knee he has been passing gas, abdominal pain is is better compared to when he arrived Patient is seen by surgery team plan is to conservatively manage the patient in hope the small bowel obstruction will resolve patient is given milk of magnesia to facilitate bowel movement, anti emetics, and hydration, will continue to monitor the patient and further recommendation to follow, patient also seen by urology team and suspect patient may have UTI empirically we have started the patient on Rocephin and will follow-up on urine culture and further recommendation to follow. 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) Which has essentially resolved since chemotherapy CHF (congestive heart failure) Depression Essential hypertension H/O subarachnoid hemorrhage Hearing loss Hernia History of lymphoma Diagnosed in 2018 now in remission Hypertension Hyponatremia 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 Postoperative ileus after bladdder resection Rib fracture September 2019 SBO (small bowel obstruction) Tobacco use Surgical History Surgical History H/O total cystectomy (~08/2019) robotic assisted bladder resection History of bilateral cataract extraction History of bilateral inguinal hernia repair History of bladder surgery resection History of exploratory laparotomy 12/2019 Ex lap with lysis of adhesions and release of SBO. History of prostatectomy History of surgery of liver Laparoscopic liver cyst fenestration and laparoscopic resection of liver on 04/12/20 for large left lateral liver cyst with final pathology demonstrating a simple biliary cyst with no dysplasia or malignancy. Hx of tonsillectomy Family History Family History Father Patient's father is Chronic obstructive pulmonary disease Mother Patient's mother is Cerebrovascular accident Hypercholesterolemia Sibling Epiglottitis Social History Social History Social History: The patient has traveled all over but not recently. He is not interested in smoking cessation at this time. He is and lives alone. He has 3 children. Primary care physician: Dr. Jamey Brooks Code status: DNR p
[2020-09-20] MEDS: MAGNESIUM HYDROXIDE SUSP 30 ML UDC PO (17:45)
--- NOTE | 2020-09-20 18:00 | PC.NURSE ---
Patient arrived to room 323 via bed from IMU, He is alert and oriented, pleasant. He has no c/o pain at this time, asking for ice chips but is NPO. NGT clamped at this time, at 1945 should be returned to low suction. He received MOM on IMU. lungs are clear, abdomen is soft, hypoactive bowel sounds. IV to right forearm running LR at 75 cc's per hour
[2020-09-21 05:12] VITALS: BP 142/80; PULSE 77; RESP 18; TEMP 36.9; O2SAT 97
[2020-09-21] MEDS: LACTATED RINGERS 1,000 ML 75 ML IV CONT (05:55)
[2020-09-21] MEDS: MORPHINE SULFATE (*CRX) 4 MG/ML INJ IV PUSH ×2 (06:08→11:19)
[2020-09-21 06:25] LABS: Hematocrit 24.1 % (42.0-52.0); Hemoglobin 7.9 g/dL (14.0-18.0); Mean Corpuscular HGB Conc 32.8 g/dl (32-36); Mean Corpuscular Hemoglobin 28.3 pg (26-34); Mean Corpuscular Volume 86.4 fl (80-100); Mean Platelet Volume 8.5 fl (7.4-10.4); Platelet Count Result 412 k/mm3 (150-375); Red Blood Count 2.79 M/mm3 (4.6-6.20); Red Cell Distribution Width 15.7 % (11.5-14.5); White Blood Count 11.9 K/mm3 (4.5-10.0)
[2020-09-21 06:44] LABS: Alanine Aminotransferase 10 U/L (4-50); Albumin Level 2.7 g/dL (3.5-5.1); Alkaline Phosphatase 89 U/L (38-126); Anion Gap 9 mmol/L (8-16); Aspartate Amino Transferase 26 U/L (17-59); Bilirubin,Total 0.3 mg/dL (0.2-1.3); Blood Urea Nitrogen 25 mg/dL (9-20); Calcium 8.5 mg/dL (8.4-10.2); Carbon Dioxide 21 mmol/L (22-30); Chloride 103 mmol/L (98-107); Estimated CRCL calculation 51 ml/min; Estimated Glomerular Filt Rate 54; Glucose 93 mg/dL (75-110); Magnesium 2.2 mg/dL (1.6-2.3); Potassium 4.1 mmol/L (3.4-5.0); Sodium 133 mmol/L (137-145)
[2020-09-21 08:00] VITALS: PULSE 77; RESP 18; O2SAT 97
[2020-09-21] MEDS: FAMOTIDINE 20 MG/2 ML VIAL IV PUSH ×2 (11:19→21:14)
[2020-09-21] MEDS: LIDOCAINE 5% PATCH 2 PATCH TRANSDERM (11:20)
--- NOTE | 2020-09-21 12:02 | PM.IMPN ---
Progress Note: A&P Assessment and Plan (1) Abnormal computed tomography of abdomen and pelvis: Code(s): R93.5 - Abnormal findings on diagnostic imaging of other abdominal regions, including retroperitoneum Status: Acute Assessment and Plan: 09/21/20 12:02 Duane Mayo is a 75 year old male with a past medical history urological cancer with urostomy presented emergency department with a complaint abdominal cramping for last 2 weeks prior to coming to emergency department his symptoms were getting progressively worse and the pain was unbearable EMS was called patient was brought to the emergency depart to further evaluate patient had a CT scan of the abdomen which showed: 1. Small bowel obstruction with transition point immediately distal to the anastomotic suture line likely at the site of an ileal conduit harvest. 2. Increase in size of a few retroperitoneal lymph nodes in the abdomen and pelvis raising concern for metastatic disease. 3. No significant interval change in sclerosis at L2 and in the left and right innominate bones which could be related to peptic disease or metastatic disease. New sclerotic lesion at the anterior left eighth rib is suspicious for metastatic disease with differential including healing nondisplaced rib fracture. Consider bone scan for further evaluation. Patient was placed on NG tube, patient states he did have a BM yesterday, knee he has been passing gas, abdominal pain is is better compared to when he arrived Patient is seen by surgery team plan is to conservatively manage the patient in hope the small bowel obstruction will resolve patient is given milk of magnesia to facilitate bowel movement, antiemetics, and hydration, patient also seen by urology team and suspect patient may have UTI empirically we have started the patient on Rocephin and will follow-up on urine culture and further recommendation to follow. Upon last night patient pulled out his NG tube is seen by surgery service in a small-bowel follow-through is ordered and results are pending, today patient states is not passing gas is much, denies any nausea or vomiting abdominal pain fever or chills, will follow-up a small-bowel series, however abdominal x-ray showed persistent multiple loops of severely dilated small bowel, likely small bowel obstruction correlating to CT. No feeding tube identified. and moderate amount of colonic stool. the patient will be seen by surgery team and further recommendation to follow, urine culture did not grow any significant bacteria most likely contamination patient is currently on Rocephin will discuss with urology regarding continuation of antibiotic. (2) Acute dehydration: Code(s): E86.0 - Dehydration Status: Acute Assessment and Plan: Most likely secondary to poor p.o. intake due to a abdominal and nausea patient is being hydrated and will monitor (3) Urinary tract infection: Code(s): N39.0 - Urinary tract infection, site not specified Status: Acute Assessment and Plan: Patient is seen by urology team empirically started on Rocephin will follow-up on urine culture and further recommendation to follow (4) Hyponatremia: Code(s): E87.1 - Hypo-osmolality and hyponatremia Status: Acute Assessment and Plan: Chronic secondary to history of the urological cancer, dehydration, patient is being hydrated will continue to monitor and further recommendation to follow Subjective Date/time seen: 09/21/20 12:02 Duane Mayo is a 75 year old male with a past medical history urological cancer with urostomy presented emergency department with a complaint abdominal cramping for last 2 weeks prior to coming to emergency department his symptoms were getting progressively worse and the pain was unbearable EMS was called patient was brought to the emergency depart to further evaluate patient had a CT scan of the abdomen which showed: 1. Small bowel obstruction with transition po
[2020-09-21 14:00] VITALS: BP 141/82; PULSE 82; RESP 18; TEMP 36.5; O2SAT 98
--- NOTE | 2020-09-21 14:25 | PM.PNGS ---
Progress Note: A&P Assessment and Plan (1) SBO (small bowel obstruction): Code(s): K56.609 - Unspecified intestinal obstruction, unspecified as to partial versus complete obstruction Status: Acute Assessment and Plan: NG tube accidentally removed overnight. Small-bowel follow-through showed contrast entering the colon between 2-1/2 and 3 hours. Consistent with a partial small-bowel obstruction. Patient is still feeling bloated, will discuss diet with Dr. George. May consider Dulcolax suppository. (2) Urinary tract infection: Code(s): N39.0 - Urinary tract infection, site not specified Status: Acute Assessment and Plan: Management per Hospitalist. (3) S/P ileal conduit: Code(s): Z93.6 - Other artificial openings of urinary tract status Status: Chronic (4) H/O total cystectomy: Onset Date: ~08/2019 Code(s): Z90.6 - Acquired absence of other parts of urinary tract Status: Acute (5) Protein calorie malnutrition: Onset Date: Unknown Code(s): E46 - Unspecified protein-calorie malnutrition Status: Chronic (6) Tobacco use: Code(s): Z72.0 - Tobacco use Status: Acute (7) CHF (congestive heart failure): Qualifiers: Heart failure chronicity: chronic Heart failure type: systolic Qualified Code(s): I50.22 - Chronic systolic (congestive) heart failure Code(s): I50.9 - Heart failure, unspecified Status: Acute (8) Diffuse large B cell lymphoma: Qualifiers: Lymphoma site: unspecified region Qualified Code(s): C83.30 - Diffuse large B-cell lymphoma, unspecified site Code(s): C83.30 - Diffuse large B-cell lymphoma, unspecified site Status: Acute Assessment and Plan: Followed by [facility] at [facility]. (9) History of bladder cancer: Code(s): Z85.51 - Personal history of malignant neoplasm of bladder Status: Acute (10) Hypertension: Qualifiers: Hypertension type: essential hypertension Qualified Code(s): I10 - Essential (primary) hypertension Code(s): I10 - Essential (primary) hypertension Status: Chronic (11) Hyponatremia: Code(s): E87.1 - Hypo-osmolality and hyponatremia Status: Acute (12) Abnormal computed tomography of abdomen and pelvis: Code(s): R93.5 - Abnormal findings on diagnostic imaging of other abdominal regions, including retroperitoneum Status: Acute Assessment and Plan: CT of the abd/pelvis noted an increase in size of a few retroperitoneal lymph nodes in the abdomen and pelvis raising concern for metastatic disease, as well as a new sclerotic lesion at the anterior left eighth rib is suspicious for metastatic disease with differential including healing nondisplaced rib fracture. Discussed results with patient. Urology was consulted and recommendations noted. Will need follow-up with his Oncologist for further work-up after he is discharged. Additional Plan I discussed the patient's case and plan of care with Dr. George. Subjective Subjective Date/Time Seen: 09/21/20 14:25 Patient reports: still having pain, flatus and no bowel movement Interval history: Patient reports still having cramping lower abdominal pain. He feels bloated today, but denies any nausea or vomiting. Does report flatus, but no bowel movement. No other complaints at this time. Review of Systems Review of Systems: All systems reviewed & are unremarkable except as noted in HPI and below Exam Const: General: comfortable, no acute distress, alert and awake GI: Inspection: distended and other (RUQ ileal conduit with pink/moist stoma and clear yellow urine in bag) GI Palp: Yes Soft to palpation, Yes Tenderness to palpation present (GI) (Right lower quadrant), No Guarding due to palpation present (GI), No Rigid due to palpation and No Rebound tenderness present Auscultation: normal bowel sounds Neuro:
--- NOTE | 2020-09-21 16:30 | WPDUROPN2 ---
Progress Note: A&P Assessment and Plan (1) S/P ileal conduit: Code(s): Z93.6 - Other artificial openings of urinary tract status Status: Chronic (2) History of bladder cancer: Code(s): Z85.51 - Personal history of malignant neoplasm of bladder Status: Acute (3) SBO (small bowel obstruction): Code(s): K56.609 - Unspecified intestinal obstruction, unspecified as to partial versus complete obstruction Status: Acute Assessment and Plan: CT findings noted and discussed with pt. Will plan to reimage in 3-4 months to f/u on mild, non-specific adenopathy. Subjective Subjective Date/Time Seen: 09/21/20 16:30 Comfortable, no complaints. NG tube out. Review of Systems Cardiovascular: Cardiovascular: Denies chest pain, Denies lightheadedness, Denies palpitations and Denies dyspnea Respiratory: Respiratory: Denies dyspnea Gastrointestinal: Gastrointestinal: Denies diarrhea, Denies nausea and Denies vomiting Genitourinary: Genitourinary: Denies hematuria and Denies dysuria Endocrine: Endocrine: Denies palpitations Exam Const: General: no acute distress Resp: Effort & Inspection: normal respiratory effort GI: Inspection: non-distended GI Palp: No abdominal tenderness and No Guarding due to palpation present (GI) Auscultation: normal bowel sounds Objective Data Vital Signs Vital Signs: Vital Signs - 24 hr 09/20/20 16:47 09/20/20 18:00 09/20/20 22:00 Temperature 99.5 F 98.9 F 99.8 F H Pulse Rate 97 100 92 Respiratory Rate 18 16 18 Blood Pressure 172/108 H 159/88 H 166/95 H Pulse Oximetry 99 96 97 09/21/20 05:12 09/21/20 08:00 Temperature 98.5 F Pulse Rate 77 77 Respiratory Rate 18 18 Blood Pressure 142/80 H Pulse Oximetry 97 97 Intake/Output Intake/Output: Intake & Output 09/18/20 09/19/20 09/20/20 09/21/20 23:59 23:59 23:59 23:59 Intake Total 2100 1050 1050 Output Total 1350 500 Balance 2100 -300 550 Meds/Results Medications: Active Medications Generic Name Dose Route Start Last Admin Trade Name Freq PRN Reason Stop Dose Admin Hydrocodone Bitart/Acetaminophen 1 tab 09/21/20 15:57 Hydrocodone/Acetaminophen (*Crx) 5-325 Mg Tablet PO Q6H PRN Pain Rated 4-6 Hydrocodone Bitart/Acetaminophen 1 tab 09/21/20 15:57 Hydrocodone/Acetaminophen (*Crx) 7.5-325 Mg Tablet PO Q6H PRN Pain Rated 7-10 Famotidine 20 mg 09/20/20 09:00 09/21/20 11:19 Famotidine 20 Mg/2 Ml Vial IV PUSH 20 mg Q12HR MONICA Administration Ceftriaxone Sodium/Dextrose 1 gm in 50 mls @ 100 mls/hr 09/20/20 00:00 09/21/20 00:28 Rocephin 1 Gm/D5w 50 Ml IVPB Infused Q24H MONICA Infusion Lactated Ringer's 1,000 mls @ 50 mls/hr 09/19/20 22:40 09/21/20 05:55 Lr - Lactated Ringers Iv IV CONT 75 mls/hr .Q20H MONICA Administration Acetaminophen 500 mg in 50 mls @ 200 mls/hr 09/21/20 18:00 Ofirmev 500 Mg Ivpb IVPB 09/22/20 18:01 Q6HR MONICA Lidocaine 2 patch 09/20/20 09:00 09/21/20 11:20 Lidocaine 5% Patch TRANSDERM 2 patch DAILY MONICA Administration Ondansetron HCl 4 mg 09/19/20 22:39 Ondansetron Inj 4 Mg/2 Ml Vial IV PUSH Q4H PRN Nausea Radiology Results: ITS Impressions Abdomen/Pelvis CT 09/19/20 20:18 IMPRESSION: 1. Small bowel obstruction with transition point immediately distal to the anastomotic suture line likely at the site of an ileal conduit harvest. 2. Increase in size of a few retroperitoneal lymph nodes in the abdomen and pelvis raising concern for metastatic disease. 3. No significant interval change in sclerosis at L2 and in the left and right innominate bones which could be related to peptic disease or metastatic disease. New sclerotic lesion at the anterior left eighth rib is suspicious for metastatic disease with differential including healing nondisplaced rib fracture. Consider bone scan for further evaluation. 4. Small sliding-type hiatal hernia. Abdomen X-Ray
--- NOTE | 2020-09-21 17:12 | PDONCCN ---
HPI - Date of Consult Date/Time: 09/21/20 17:12 Requesting Physician: Gisela Benoit DO Primary Care Provider: Jamey Brooks MD - Consult Narrative Reason for consult: History of non-Hodgkin lymphoma and bladder cancer Narrative: Duane Mayo is a 75 year old male with history of diffuse large B-cell lymphoma diagnosed in 2018 margin was treated with chemotherapy until September of 2018. He was then diagnosed with bladder cancer in September of 2019 and was treated by Dr. Lake caputo. Patient had ileostomy done at that time. He did not receive any radiation and chemotherapy. He now came into the hospital with nausea vomiting and constipation along with generalized weakness. He was having lower abdominal pain for the last couple of weeks duration. CT scan of the abdomen was performed that showed small bowel obstruction with transition point immediately distal to the anastomotic suture line at the site of ileal conduit. There was few retroperitoneal lymph node. No significant change in L2 sclerosis. There was a sclerotic lesion of the left 8th rib suspicious for metastatic disease. Review of Systems - Review of Systems All systems reviewed & are unremarkable except as noted in HPI and bel - Neurologic Reports weakness (generalized weakness for months), Denies syncope, Denies headache(s), Denies loss of vision, Denies tingling, Denies tremor(s) [facility] Medical History: Medical History (Last Reviewed 09/20/20 @ 13:28 by KUSHAL Rao) Abnormal bone scan of cervical spine CT suggest hemangioma bone scan suggest Paget's disease Abnormal bone scan of lumbar spine 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 Onset Date: Unknown Which has essentially resolved since chemotherapy CHF (congestive heart failure) Depression Essential hypertension H/O subarachnoid hemorrhage Hearing loss Hernia History of lymphoma Diagnosed in 2018 now in remission Hypertension Hyponatremia 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 Postoperative ileus after bladdder resection Rib fracture September 2019 SBO (small bowel obstruction) Tobacco use Surgical History: Surgical History (Last Reviewed 09/20/20 @ 13:28 by KUSHAL Rao) H/O total cystectomy Onset Date: ~08/2019 robotic assisted bladder resection History of bilateral cataract extraction History of bilateral inguinal hernia repair History of bladder surgery resection History of exploratory laparotomy 12/2019 Ex lap with lysis of adhesions and release of SBO. History of prostatectomy History of surgery of liver Laparoscopic liver cyst fenestration and laparoscopic resection of liver on 04/12/20 for large left lateral liver cyst with final pathology demonstrating a simple biliary cyst with no dysplasia or malignancy. Hx of tonsillectomy Family History: Family History (Last Reviewed 09/20/20 @ 13:08 by KUSHAL Rao) Father Patient's father is Chronic obstructive pulmonary disease Mother Patient's mother is Cerebrovascular accident Hypercholesterolemia Sibling Epiglottitis - Social History Social History: Social History (Last Reviewed 09/20/20 @ 13:08 by KUSHAL Rao) Gender Identity: Gender identity (if verbalized by the patient): Male Alcohol Use: Alcohol intake: current Drinks per week: 3 Substance Use: Substance use: never Substance use type: does not use Others: Spiritual care concerns: No Agree to blood products: Yes Smoking Status: Smoking status: Current every day smoker Tobacco type: cigarettes Second hand tobacco smoke exposure: Yes Smoking Pack-years: Smoking packs per day: 1 Smoking cigarettes per day: 20.0 Years smoked: 20 Smoking pack-years: 20.00 Comments: Additional smoking assessment comm
[2020-09-21] MEDS: BISACODYL 10 MG SUPPOSITORY RECTAL (18:12)
[2020-09-21] MEDS: MAGNESIUM HYDROXIDE SUSP 30 ML UDC FEED TUBE (18:12)
[2020-09-21] MEDS: HYDROcodone/acetaminophen (*CRX) 5-325 MG TABLET 1 TAB PO (18:16)
[2020-09-21] MEDS: LACTATED RINGERS 1,000 ML 50 ML IV CONT (21:13)
[2020-09-21 22:00] VITALS: BP 162/98; PULSE 93; RESP 20; TEMP 36.8; O2SAT 98
[2020-09-22] MEDS: HYDROcodone/acetaminophen (*CRX) 7.5-325 MG TABLET 1 TAB PO (03:57)
[2020-09-22 06:00] VITALS: BP 158/95; PULSE 78; RESP 20; TEMP 36.8; O2SAT 92
[2020-09-22 06:38] LABS: Hemoglobin 7.4 g/dL (14.0-18.0); Mean Corpuscular HGB Conc 33.6 g/dl (32-36); Mean Corpuscular Hemoglobin 28.7 pg (26-34); Mean Corpuscular Volume 85.3 fl (80-100); Mean Platelet Volume 8.7 fl (7.4-10.4); Platelet Count Result 435 k/mm3 (150-375); Red Blood Count 2.58 M/mm3 (4.6-6.20); Red Cell Distribution Width 15.5 % (11.5-14.5); White Blood Count 10.8 K/mm3 (4.5-10.0)
[2020-09-22 06:46] LABS: Alanine Aminotransferase 11 U/L (4-50); Albumin Level 2.6 g/dL (3.5-5.1); Alkaline Phosphatase 90 U/L (38-126); Anion Gap 1 mmol/L (8-16); Aspartate Amino Transferase 29 U/L (17-59); Bilirubin,Total 0.3 mg/dL (0.2-1.3); Blood Urea Nitrogen 26 mg/dL (9-20); Calcium 8.4 mg/dL (8.4-10.2); Carbon Dioxide 26 mmol/L (22-30); Chloride 104 mmol/L (98-107); Estimated CRCL calculation 60 ml/min; Estimated Glomerular Filt Rate > 60; Glucose 128 mg/dL (75-110); Magnesium 2.3 mg/dL (1.6-2.3); Potassium 4.2 mmol/L (3.4-5.0); Sodium 131 mmol/L (137-145)
[2020-09-22 06:49] LABS: Lactic Acid Reflex 0.7 mmol/L (0.7-2.1)
[2020-09-22] MEDS: FAMOTIDINE 20 MG/2 ML VIAL IV PUSH (08:46)
[2020-09-22] MEDS: LIDOCAINE 5% PATCH 2 PATCH TRANSDERM (08:46)
--- NOTE | 2020-09-22 10:24 | PM.PNGS ---
Progress Note: A&P Assessment and Plan (1) SBO (small bowel obstruction): Code(s): K56.609 - Unspecified intestinal obstruction, unspecified as to partial versus complete obstruction Status: Acute Assessment and Plan: Small-bowel follow-through showed contrast entering the colon between 2-1/2 and 3 hours. Consistent with a partial small-bowel obstruction. Patient is still feeling slightly bloated but denies nausea,and has now had 3 BM's in last 12 hrs. Will advance diet to full liquids for lunch in check with this nurse around 3:00 p.m. today to see if he can be advanced to our goal of a low residue diet prior to discharge. (2) Urinary tract infection: Code(s): N39.0 - Urinary tract infection, site not specified Status: Acute Assessment and Plan: Management per Hospitalist. (3) S/P ileal conduit: Code(s): Z93.6 - Other artificial openings of urinary tract status Status: Chronic (4) H/O total cystectomy: Onset Date: ~08/2019 Code(s): Z90.6 - Acquired absence of other parts of urinary tract Status: Acute (5) Protein calorie malnutrition: Onset Date: Unknown Code(s): E46 - Unspecified protein-calorie malnutrition Status: Chronic Assessment and Plan: Will order Ensure compact for nutritional supplements. (6) Tobacco use: Code(s): Z72.0 - Tobacco use Status: Acute (7) CHF (congestive heart failure): Qualifiers: Heart failure type: systolic Heart failure chronicity: chronic Qualified Code(s): I50.22 - Chronic systolic (congestive) heart failure Code(s): I50.9 - Heart failure, unspecified Status: Acute (8) Diffuse large B cell lymphoma: Qualifiers: Lymphoma site: unspecified region Qualified Code(s): C83.30 - Diffuse large B-cell lymphoma, unspecified site Code(s): C83.30 - Diffuse large B-cell lymphoma, unspecified site Status: Acute Assessment and Plan: Followed by [facility] at [facility]. Dr. Dillan leo is now seen him and he is planning to do a outpatient PET scan to further evaluate the new nodules on the left rib and enlarged lymph nodes in the pelvis prior to consideration for a percutaneous biopsy to try to differentiate between these 2 and whether not there is any current malignancy. (9) History of bladder cancer: Code(s): Z85.51 - Personal history of malignant neoplasm of bladder Status: Acute (10) Hypertension: Qualifiers: Hypertension type: essential hypertension Qualified Code(s): I10 - Essential (primary) hypertension Code(s): I10 - Essential (primary) hypertension Status: Chronic (11) Hyponatremia: Code(s): E87.1 - Hypo-osmolality and hyponatremia Status: Acute Assessment and Plan: Sodium still low at 132 I wonder if this contributed to some of his ileus so we may need to follow this with 1 more test tomorrow morning consider whether not he needs to be allowed to have more salt or if he is on any drugs it caused him to lose sodium in the urine. (12) Abnormal computed tomography of abdomen and pelvis: Code(s): R93.5 - Abnormal findings on diagnostic imaging of other abdominal regions, including retroperitoneum Status: Acute Assessment and Plan: CT of the abd/pelvis noted an increase in size of a few retroperitoneal lymph nodes in the abdomen and pelvis raising concern for metastatic disease, as well as a new sclerotic lesion at the anterior left eighth rib is suspicious for metastatic disease with differential including healing nondisplaced rib fracture. Discussed results with patient. Urology was consulted and recommendations noted. Will need follow-up with his Oncologist for further work-up after he is discharged. Oncology planning a PET scan as an outpatient after discharge. Additional Plan I discussed the patient's case and plan of care with Dr. Mcdowell. And also
--- NOTE | 2020-09-22 11:19 | PCNFU ---
Nutrition Follow-Up Complete: Inadequate oral intake related to small bowel obstruction as evidenced by NPO status. Goal: Patient to meet estimated nutritional needs. Progressing towards goal. We will continue current goal. Pt current nutrition is full liquids. Nutrition recommendation: full liquids advancing to low fiber diet. Last recorded weight is 80.1 kg down from 81.9 kg on admit. Bowel Motility: urostomy Labs Reviewed:Glu 128,Na 131 Additional Notes: Patient educated today on low fiber diet instructions. All questions answered and patient instruction attached. Oral Intake on Clear liquids tolerated well. Agree with diet orders. Monitoring: Follow up in 5 days.
--- NOTE | 2020-09-22 13:00 | PCOTNOTE ---
Despite education on benefits of participating in therapy, pt reports does not want any therapy during this hospital stay and asked for therapy to not come back into his room to attempt evaluation. Will D/C pt from OT at this time, RN notified.
--- NOTE | 2020-09-22 13:50 | PM.IMPN ---
Progress Note: A&P Assessment and Plan (1) Abnormal computed tomography of abdomen and pelvis: Code(s): R93.5 - Abnormal findings on diagnostic imaging of other abdominal regions, including retroperitoneum Status: Acute Assessment and Plan: 09/22/20 13:50 Duane Mayo is a 75 year old male with a past medical history urological cancer with urostomy presented emergency department with a complaint abdominal cramping for last 2 weeks prior to coming to emergency department his symptoms were getting progressively worse and the pain was unbearable EMS was called patient was brought to the emergency depart to further evaluate patient had a CT scan of the abdomen which showed: 1. Small bowel obstruction with transition point immediately distal to the anastomotic suture line likely at the site of an ileal conduit harvest. 2. Increase in size of a few retroperitoneal lymph nodes in the abdomen and pelvis raising concern for metastatic disease. 3. No significant interval change in sclerosis at L2 and in the left and right innominate bones which could be related to peptic disease or metastatic disease. New sclerotic lesion at the anterior left eighth rib is suspicious for metastatic disease with differential including healing nondisplaced rib fracture. Consider bone scan for further evaluation. Patient was placed on NG tube, patient states he did have a BM yesterday, knee he has been passing gas, abdominal pain is is better compared to when he arrived Patient pulled out his NG tube on 09/21 patient was seen by surgery team and patient had a small-bowel follow-through which showed patient has a partial bowel obstruction, today today 09/22 patient was seen by surgery team patient had a BM, patient is started on a clear liquid and plan is to continue to monitor and patient will be seen by dietitian, with recommendation for low residual diet, patient is encouraged to ambulate, if patient remains clinically stable plan is to discharge the patient tomorrow. patient also seen by urology team and suspect patient may have UTI empirically we have started the patient on Rocephin however urine culture did not grow any bacteria will stop antibiotics. Patient also found to have diffuse large B-cell lymphoma diagnosed and history of bladder cancer status post ileostomy, recent CT scan of the abdomen showed increase in size of a few retroperitoneal lymph nodes in the abdomen and pelvis raising concern for metastatic disease similarly new sclerotic lesion at the anterior left eighth rib is suspicious for metastatic disease patient is seen by Dr. Mcdowell oncologist and recommending PET scan to further evaluate and biopsy the lymph node as outpatient. (2) Acute dehydration: Code(s): E86.0 - Dehydration Status: Acute Assessment and Plan: Most likely secondary to poor p.o. intake due to a abdominal and nausea patient is being hydrated and will monitor (3) Urinary tract infection: Code(s): N39.0 - Urinary tract infection, site not specified Status: Acute Assessment and Plan: Patient is seen by urology team empirically started on Rocephin will follow-up on urine culture and further recommendation to follow (4) Hyponatremia: Code(s): E87.1 - Hypo-osmolality and hyponatremia Status: Acute Assessment and Plan: Chronic secondary to history of the urological cancer, dehydration, patient is being hydrated will continue to monitor and further recommendation to follow Subjective Date/time seen: 09/22/20 13:50 Duane Mayo is a 75 year old male with a past medical history urological cancer with urostomy presented emergency department with a complaint abdominal cramping for last 2 weeks prior to coming to emergency department his symptoms were getting progressively worse and the pain was unbearable EMS was called patient was brought to the emergency depart to further evaluate patient had a CT scan of the abdomen which showed:
[2020-09-22 14:00] VITALS: BP 180/110; PULSE 98; RESP 18; TEMP 36.6; O2SAT 99
--- NOTE | 2020-09-22 14:26 | PCPTNOTE ---
Attempted PT evaluation this afternoon. Pt reports he does not want any therapy during this hospital stay and that he plans to discharge home with his daughters who are able to help him if needed. Will D/C from PT at this time.
[2020-09-22 16:39] VITALS: PULSE 98
[2020-09-22] MEDS: carvediloL 25 MG TABLET PO (16:39)
[2020-09-22] MEDS: SACUBITRIL/VALSARTAN 24-26 MG TABLET 1 TAB PO (16:39)
[2020-09-22] MEDS: ACETAMINOPHEN 500 MG TABLET PO ×2 (16:40→21:59)
[2020-09-22 17:30] VITALS: BP 140/92
[2020-09-22 22:00] VITALS: BP 140/88; PULSE 71; RESP 16; TEMP 36.9; O2SAT 97
[2020-09-22] MEDS: GABAPENTIN 300 MG CAPSULE PO (22:00)
[2020-09-23] MEDS: ACETAMINOPHEN 500 MG TABLET PO ×2 (05:41→12:39)
[2020-09-23 06:46] LABS: Hematocrit 23.5 % (42.0-52.0); Hemoglobin 7.9 g/dL (14.0-18.0); Mean Corpuscular HGB Conc 33.6 g/dl (32-36); Mean Corpuscular Hemoglobin 28.1 pg (26-34); Mean Corpuscular Volume 83.6 fl (80-100); Mean Platelet Volume 8.8 fl (7.4-10.4); Platelet Count Result 472 k/mm3 (150-375); Red Blood Count 2.81 M/mm3 (4.6-6.20); Red Cell Distribution Width 15.8 % (11.5-14.5); White Blood Count 9.7 K/mm3 (4.5-10.0)
[2020-09-23 07:02] LABS: Alanine Aminotransferase 24 U/L (4-50); Albumin Level 2.7 g/dL (3.5-5.1); Alkaline Phosphatase 96 U/L (38-126); Anion Gap 4 mmol/L (8-16); Aspartate Amino Transferase 42 U/L (17-59); Bilirubin,Total 0.4 mg/dL (0.2-1.3); Blood Urea Nitrogen 24 mg/dL (9-20); Calcium 8.5 mg/dL (8.4-10.2); Carbon Dioxide 24 mmol/L (22-30); Chloride 101 mmol/L (98-107); Estimated CRCL calculation 61 ml/min; Estimated Glomerular Filt Rate > 60; Glucose 103 mg/dL (75-110); Magnesium 2.3 mg/dL (1.6-2.3); Potassium 3.9 mmol/L (3.4-5.0); Sodium 129 mmol/L (137-145)
[2020-09-23 08:00] VITALS: PULSE 68; RESP 16; O2SAT 97
[2020-09-23] MEDS: HYDROcodone/acetaminophen (*CRX) 5-325 MG TABLET 1 TAB PO (09:09)
[2020-09-23 09:10] VITALS: PULSE 68
[2020-09-23] MEDS: carvediloL 25 MG TABLET PO (09:10)
[2020-09-23] MEDS: SACUBITRIL/VALSARTAN 24-26 MG TABLET 1 TAB PO (09:12)
[2020-09-23] MEDS: DULoxetine HCL 60 MG CAPSULE.DR PO (09:12)
[2020-09-23] MEDS: MEGESTROL ACETATE (*CHEMO) 20 MG TABLET PO (09:12)
[2020-09-23] MEDS: GABAPENTIN 300 MG CAPSULE PO (09:12)
[2020-09-23] MEDS: ASPIRIN 81 MG ENTERIC TABLET PO (09:12)
[2020-09-23] MEDS: LIDOCAINE 5% PATCH 2 PATCH TRANSDERM (09:13)
--- NOTE | 2020-09-23 10:59 | PM.PNGS ---
Progress Note: A&P Assessment and Plan (1) SBO (small bowel obstruction): Code(s): K56.609 - Unspecified intestinal obstruction, unspecified as to partial versus complete obstruction Status: Acute Assessment and Plan: doing well, dorcas diet, +bowel fxn, ok to go home later today if no issues, will need f/u c oncology and likely outpt PET Subjective Subjective Date/Time Seen: 09/23/20 10:59 feels good, dorcas diet, +bowel fxn Review of Systems Constitutional: Constitutional: Denies anorexia, Denies chills, Reports fatigue, Denies fever(s), Reports lethargy, Denies poor appetite and Reports weakness Cardiovascular: Cardiovascular: Reports no additional cardiovascular complaints Respiratory: Respiratory: Reports no additional respiratory complaints Gastrointestinal: Gastrointestinal: Denies abdominal pain, Denies bloating, Denies constipation, Denies GI cramping, Denies nausea and Denies vomiting Exam Const: General: cooperative, comfortable and no acute distress Nutritional Appearance: average body habitus Orientation/consciousness: patient oriented x3 Resp: Effort & Inspection: normal respiratory effort Auscultation: clear to auscultation bilaterally Cardio: Rate: regular rate Rhythm: regular rhythm GI: Inspection: normal to inspection and non-distended GI Palp: No abdominal tenderness, Yes Soft to palpation, No Tenderness to palpation present (GI) and No Guarding due to palpation present (GI) Other: ileal conduit +fxn Objective Data Vital Signs Vital Signs: Vital Signs - 24 hr 09/22/20 14:00 09/22/20 16:39 09/22/20 17:30 Temperature 36.6 C Pulse Rate 98 98 Respiratory Rate 18 Blood Pressure 180/110 H 140/92 H Pulse Oximetry 99 09/22/20 22:00 09/23/20 08:00 09/23/20 09:10 Temperature 36.9 C Pulse Rate 71 68 68 Respiratory Rate 16 16 Blood Pressure 140/88 Pulse Oximetry 97 97 Intake/Output Intake/Output: Intake & Output 09/20/20 09/21/20 09/22/20 09/23/20 23:59 23:59 23:59 23:59 Intake Total 1050 2770 3540 550 Output Total 1350 1100 400 600 Balance -300 1670 3140 -50 Meds/Results Medications: Active Medications Generic Name Dose Route Start Last Admin Trade Name Freq PRN Reason Stop Dose Admin Acetaminophen 500 mg 09/22/20 10:20 09/23/20 05:41 Acetaminophen 500 Mg Tablet PO 500 mg Q6HR MONICA Administration Hydrocodone Bitart/Acetaminophen 1 tab 09/21/20 15:57 09/23/20 09:09 Hydrocodone/Acetaminophen (*Crx) 5-325 Mg Tablet PO 1 tab Q6H PRN Administration Pain Rated 4-6 Hydrocodone Bitart/Acetaminophen 1 tab 09/21/20 15:57 09/22/20 03:57 Hydrocodone/Acetaminophen (*Crx) 7.5-325 Mg Tablet PO 1 tab Q6H PRN Administration Pain Rated 7-10 Aspirin 81 mg 09/23/20 09:00 09/23/20 09:12 Aspirin 81 Mg Enteric Tablet PO 81 mg DAILY MONICA Administration Carvedilol 25 mg 09/22/20 17:00 09/23/20 09:10 Carvedilol 25 Mg Tablet PO 25 mg BID MONICA Administration Duloxetine HCl 60 mg 09/23/20 09:00 09/23/20 09:12 Duloxetine Hcl 60 Mg Capsule.Dr PO 60 mg DAILY MONICA Administration Gabapentin 300 mg 09/22/20 21:00 09/23/20 09:12 Gabapentin 300 Mg Capsule PO 300 mg Q12HR MONICA Administration Ceftriaxone Sodium/Dextrose 1 gm in 50 mls @ 100 mls/hr 09/20/20 00:00 09/23/20 02:30 Rocephin 1 Gm/D5w 50 Ml IVPB Infused Q24H MONICA Infusion Lidocaine 2 patch 09/20/20 09:00 09/23/20 09:13 Lidocaine 5% Patch TRANSDERM 2 patch DAILY MONICA Administration Megestrol Acetate 20 mg 09/23/20 09:00 09/23/20 09:12 Megestrol Acetate (*Chemo) 20 Mg Tablet PO 20 mg QAM MONICA Administration Ondansetron HCl 4 mg 09/19/20 22:39 Ondansetron Inj 4 Mg/2 Ml Vial IV PUSH Q4H PRN Nausea Sacubitril/Valsartan 1 tab 09/22/20 17:00 09/23/20 09:12 Sacubitril/Valsartan 24-26 Mg Tablet PO 1 tab BID MONICA Administration Radiology Results: ITS Impressions Abdomen/Pelvis CT
--- NOTE | 2020-09-23 11:10 | PM.IMPN ---
Progress Note: A&P Assessment and Plan (1) Abnormal computed tomography of abdomen and pelvis: Code(s): R93.5 - Abnormal findings on diagnostic imaging of other abdominal regions, including retroperitoneum Status: Acute Assessment and Plan: Duane Mayo is a 75 year old male with a past medical history urological cancer with urostomy presented emergency department with a complaint abdominal cramping for last 2 weeks prior to coming to emergency department his symptoms were getting progressively worse and the pain was unbearable EMS was called patient was brought to the emergency depart to further evaluate patient had a CT scan of the abdomen which showed: 1. Small bowel obstruction with transition point immediately distal to the anastomotic suture line likely at the site of an ileal conduit harvest. 2. Increase in size of a few retroperitoneal lymph nodes in the abdomen and pelvis raising concern for metastatic disease. 3. No significant interval change in sclerosis at L2 and in the left and right innominate bones which could be related to peptic disease or metastatic disease. New sclerotic lesion at the anterior left eighth rib is suspicious for metastatic disease with differential including healing nondisplaced rib fracture. Consider bone scan for further evaluation. Patient was placed on NG tube, patient states he did have a BM yesterday, knee he has been passing gas, abdominal pain is is better compared to when he arrived Patient pulled out his NG tube on 09/21 patient was seen by surgery team and patient had a small-bowel follow-through which showed patient has a partial bowel obstruction, today today 09/22 patient was seen by surgery team patient had a BM, patient is started on a clear liquid and plan is to continue to monitor and patient will be seen by dietitian, with recommendation for low residual diet, patient is encouraged to ambulate, if patient remains clinically stable plan is to discharge the patient tomorrow. patient also seen by urology team and suspect patient may have UTI empirically we have started the patient on Rocephin however urine culture did not grow any bacteria will stop antibiotics. Patient also found to have diffuse large B-cell lymphoma diagnosed and history of bladder cancer status post ileostomy, recent CT scan of the abdomen showed increase in size of a few retroperitoneal lymph nodes in the abdomen and pelvis raising concern for metastatic disease similarly new sclerotic lesion at the anterior left eighth rib is suspicious for metastatic disease patient is seen by Dr. Mcdowell oncologist and recommending PET scan to further evaluate and biopsy the lymph node as outpatient. (2) Acute dehydration: Code(s): E86.0 - Dehydration Status: Acute Assessment and Plan: Most likely secondary to poor p.o. intake due to a abdominal and nausea patient is being hydrated and will monitor (3) Urinary tract infection: Code(s): N39.0 - Urinary tract infection, site not specified Status: Acute Assessment and Plan: Patient is seen by urology team empirically started on Rocephin will follow-up on urine culture and further recommendation to follow (4) Hyponatremia: Code(s): E87.1 - Hypo-osmolality and hyponatremia Status: Acute Assessment and Plan: Chronic secondary to history of the urological cancer, dehydration, patient is being hydrated will continue to monitor and further recommendation to follow Subjective Date/time seen: 09/23/20 11:10 Interval history: Patient is seen during the morning rounds today, feeling ok, no sob or chest pain,mood stable. Review of Systems Review of Systems: All systems reviewed & are unremarkable except as noted in HPI and below Exam Narrative: Exam Narrative: Elderly frail appears chronically ill Patient is comfortable, NAD HEENT: eyes are clear and none icteric LUNGS:CTA HEART: RR S1S2 ABD: Bowel sounds are faint diffus
[2020-09-23] MEDS: PANTOPRAZOLE SODIUM IV 40 MG VIAL IV PUSH (12:39)
[2020-09-23 14:46] VITALS: BP 105/69; PULSE 65; RESP 20; TEMP 36.9; O2SAT 95
--- NOTE | 2020-09-23 22:43 | DS_ITS ---
DATE OF DISCHARGE: 09/23/2020 ADMITTING DIAGNOSES: 1. Possible small bowel obstruction. 2. Dehydration. 3. Urinary tract infection. 4. Hyponatremia. 5. Hypoosmolality. FINAL DIAGNOSES: 1. Small bowel obstruction. 2. Dehydration. 3. Urinary tract infection. 4. Hyponatremia. The patient is 75 years old male with history of urological cancer with urostomy, presenting to the emergency room with complaint of abdominal cavity for the last 2 weeks prior to coming to the emergency room. The patient's CT of the abdomen shows possible small bowel obstruction. PHYSICAL EXAMINATION: VITAL SIGNS: Blood pressure was 90/57, pulse rate 81, temperature 98.8, respiration rate 16. LUNGS: Air entry good. No additional sound. HEART: S1, S2. Rate and rhythm regular with no murmur. ABDOMEN: Soft, mildly distended. Bowel sounds were decreased. LABORATORY DATA: Important laboratory data showed wbc count 15.4, hemoglobin is 9.6, platelet count 493. Sodium 126, potassium 4.4, BUN 23, creatinine 1.2. DISCHARGE INSTRUCTIONS/DISPOSITION: The patient was admitted into the hospital. Urine cultures were ordered and IV antibiotic was started. Surgery was consulted and IV fluids were given. After few days of treatment, patient started feeling better. So, the patient discharged home in stable condition. General diet and activity as tolerated. Follow the primary care physician in about 1 week. Condition at time of discharge is stable. DISCHARGE MEDICATIONS: The patient is advised to take: 1. Aspirin 81 mg p.o. daily. 2. Carvedilol 25 mg p.o. daily. 3. Duloxetine 60 mg p.o. daily. 4. Gabapentin 300 mg p.o. daily. 5. Megestrol 20 mg p.o. daily. 6. Sacubitril 24 mg/valsartan 26 mg p.o. b.i.d. The patient is advised to follow the primary care physician and Urology saw the patient next week. Mark Anthony I MT: [place]
== END 2020-09-23 15:25 | disposition home or self-care (01) | DRG 389 ==
LOC: ANHED 22:38 → ANHIMU 09-20 00:47 → ANH3MEDSUR 09-20 21:43 → ANHIMU 09-27 09:41
PROVIDERS: Emergency Medicine; Emergency Medicine Emergency Medical Services; Family Medicine; Surgery; Admitting Provider Internal Medicine; Emergency Provider Emergency Medicine; PCP Internal Medicine; Visit Provider Internal Medicine
DX: K56.609 Unspecified intestinal obstruction, unspecified as to partial versus complete obstruction (principal); N39.0 Urinary tract infection, site not specified; E46 Unspecified protein-calorie malnutrition; I50.22 Chronic systolic (congestive) heart failure; C83.30 Diffuse large B-cell lymphoma, unspecified site; E87.1 Hypo-osmolality and hyponatremia; E86.0 Dehydration; I11.0 Hypertensive heart disease with heart failure; F17.210 Nicotine dependence, cigarettes, uncomplicated; R93.5 Abnormal findings on diagnostic imaging of other abdominal regions, including retroperitoneum; Z66 Do not resuscitate; Z90.6 Acquired absence of other parts of urinary tract; Z93.6 Other artificial openings of urinary tract status; Z98.41 Cataract extraction status, right eye; Z98.42 Cataract extraction status, left eye; Z85.51 Personal history of malignant neoplasm of bladder
CPT/HCPCS: 36415; 74018; 74019; 74177; 74250; 80053; 81001; 83605; 83690; 83735; 85025; 85027; 87040; 87086; 87088; 96361; 96365; 96375; 99285; A9270; C9113; J0131; J0696; J2270; J2405; J7030; J7040; J7120; Q9967

== ENCOUNTER 2020-10-08 13:47 | Inpatient (IN) | payer OTHER, SELFPAY ==
[2020-10-08] VITALS (12 sets, daily range): BP systolic 75–132; BP diastolic 55–84; PULSE 58–69; RESP 15–26; TEMP 36.4–38.1; O2SAT 95–98
--- NOTE | ~2020-10-08 | XR_ITS ---
EXAMINATION: XR chest 1V portable EXAM DATE: 10/08/2020 14:29 INDICATION: sob, fever, weakness. TECHNIQUE: Portable AP frontal chest x-ray was obtained. Comparison is made to prior examination from 01/21/2020. FINDINGS: There is moderate amount of ill-defined right-sided acute airspace disease, small amount on the left, probably acute infectious process. Recommend considering possibility of COVID pneumonia. There is no pneumothorax suspected. Small left pleural effusion. Cardiomediastinal silhouette is norm al. There is aortic arteriosclerosis. There are mild bony degenerative changes. IMPRESSION: 1. Moderate right, small left sided acute airspace disease, probably pneumonia. 2. Small left pleural effusion. Reviewed, dictated and finalized at location A. DRIVER IMPRESSION: 1. Moderate right, small left sided acute airspace disease, probably pneumoni a. 2. Small left pleural effusion.
--- NOTE | 2020-10-08 13:52 | ECG_ITS ---
Measurements Intervals Ruffin Rate: 68 P: 36 NM: 195 QRS: -80 QRSD: 169 T: -16 QT: 475 QTc: 506 Interpretive Statements SINUS RHYTHM RIGHT BUNDLE BRANCH BLOCK LEFT ANTERIOR FASCICULAR BLOCK BASELINE ARTIFACT- II, III, AVF, V1-V3 ABNORMAL ECG Electronically Signed On 10-08-2020 15:31:32 EXTENDED INSURANCE CLERK by Ronen Damico D.O.
--- NOTE | 2020-10-08 14:02 | ED.GENADULT ---
HPI - General Adult General Chief complaint: Weakness Stated complaint: weakness Time Seen by Provider: 10/08/20 13:50 Source: patient and EMS History of Present Illness HPI narrative: Patient is a 75 y/o male sent to ED by family for severe generalized weakness. EMS reports that family tried to get him up to walk and he had difficulty with walking. There is no known alleviating or exacerbating factor. Of note, patient was recently admitted to [facility] for bowel obstruction and discharged on 10/06. He has known history of lymphoma and bladder cancer. He tested positive for COVID on 09/28/20 while he was admitted at [facility]. However, he did not have any respiratory symptoms at the time of COVID diagnosis. EMS reports that his sat was 88% on RA today. Related Data Home Medications Medication Instructions Recorded Confirmed carvedilol 25 mg PO BID 08/30/19 09/20/20 aspirin [Aspir-81] 81 mg PO DAILY 09/24/19 09/20/20 Allergies Allergy/AdvReac Type Severity Reaction Status Date / Time No Known Allergies Allergy Unknown Verified 10/08/20 14:01 Review of Systems Constitutional: Constitutional: Denies chills, Denies fever(s), Denies headache(s) and Reports weakness Eyes: Eyes: Denies blurry vision ENT: Denies headache(s) and Denies neck pain Cardiovascular: Cardiovascular: Denies chest pain and Denies dyspnea Respiratory: Respiratory: Denies cough and Denies dyspnea Gastrointestinal: Gastrointestinal: Denies abdominal pain, Denies diarrhea, Denies nausea and Denies vomiting Genitourinary: Genitourinary: Denies hematuria and Denies dysuria Musculoskeletal: Musculoskeletal: Denies back pain, Reports myalgias, Reports arthralgias and Denies neck pain Neurologic: Denies headache(s) and Reports weakness PMFSH Past Medical History Medical History Abnormal bone scan of cervical spine CT suggest hemangioma bone scan suggest Paget's disease Abnormal bone scan of lumbar spine 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) Which has essentially resolved since chemotherapy CHF (congestive heart failure) Depression Essential hypertension H/O subarachnoid hemorrhage Hearing loss Hernia History of lymphoma Diagnosed in 2018 now in remission Hypertension Hyponatremia 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 Postoperative ileus after bladdder resection Rib fracture September 2019 SBO (small bowel obstruction) Tobacco use Surgical History Surgical History H/O total cystectomy (~08/2019) robotic assisted bladder resection History of bilateral cataract extraction History of bilateral inguinal hernia repair History of bladder surgery resection History of exploratory laparotomy 12/2019 Ex lap with lysis of adhesions and release of SBO. History of prostatectomy History of surgery of liver Laparoscopic liver cyst fenestration and laparoscopic resection of liver on 04/12/20 for large left lateral liver cyst with final pathology demonstrating a simple biliary cyst with no dysplasia or malignancy. Hx of tonsillectomy Family History Family History Father Patient's father is Chronic obstructive pulmonary disease Mother Patient's mother is Cerebrovascular accident Hypercholesterolemia Sibling Epiglottitis Social History Social History Social History: The patient has traveled all over but not recently. He is not interested in smoking cessation at this time. He is and lives alone. He has 3 children. Primary care physician: Dr. Jamey Brooks Code status: DNR per patient request Smoking packs per day: 1 Smoking cigarettes per day: 20.0 Years smoked: 20 Smoking pack-years: 20.00 Smoking status: Current
--- NOTE | 2020-10-08 14:07 | PC.NURSE ---
Pt taken off NC O2 per EDP, pt 91% on room air. Placed on 2 L NC at this time.
[2020-10-08] MEDS: ACETAMINOPHEN 325 MG TABLET 650 MG PO (14:31)
[2020-10-08 14:32] LABS: Basophils Percent Auto 0.2 % (0.2-1.2); Hematocrit 25.4 % (42.0-52.0); Hemoglobin 8.4 g/dL (14.0-18.0); Immature Granulocyte Absolute 0.06 K/mm3 (0.00-0.031); Immature Granulocyte Percent A 1.1 % (0-0.5); Lymphocytes Absolute Auto 0.41 K/mm3 (0.9-3.2); Lymphocytes Percent Auto 7.4 % (18.3-44.2); Mean Corpuscular HGB Conc 33.1 g/dl (32-36); Mean Corpuscular Hemoglobin 27.3 pg (26-34); Mean Corpuscular Volume 82.5 fl (80-100); Mean Platelet Volume 9.6 fl (7.4-10.4); Monocytes Absolute Auto 0.2 K/mm3 (0.1-0.6); Monocytes Percent Auto 2.7 % (2.6-8.5); Neutrophils Absolute Auto 4.9 K/mm3 (1.3-6.7); Neutrophils Percent Auto 88.6 % (45.5-73.1); Platelet Count Result 249 k/mm3 (150-375); Red Blood Count 3.08 M/mm3 (4.6-6.20); Red Cell Distribution Width 17.2 % (11.5-14.5); White Blood Count 5.6 K/mm3 (4.5-10.0)
[2020-10-08 14:44] LABS: Alanine Aminotransferase 30 U/L (4-50); Albumin Level 2.7 g/dL (3.5-5.1); Alkaline Phosphatase 163 U/L (38-126); Anion Gap 8 mmol/L (8-16); Aspartate Amino Transferase 85 U/L (17-59); Bilirubin,Total 0.4 mg/dL (0.2-1.3); Blood Urea Nitrogen 18 mg/dL (9-20); Carbon Dioxide 21 mmol/L (22-30); Chloride 99 mmol/L (98-107); Estimated CRCL calculation 70 ml/min; Estimated Glomerular Filt Rate > 60; Glucose 115 mg/dL (75-110); Potassium 4.5 mmol/L (3.4-5.0); Sodium 128 mmol/L (137-145)
[2020-10-08 14:53] LABS: Add Urine Microscopic? YES; Appearance Urine Clear (Clear); Bacteria Urine Trace /hpf; Bilirubin Urine Negative (Negative); Blood Urine Negative (Negative); Color Urine Yellow (Yellow); Glucose Urine UA Negative (Negative); Ketones Urine Negative (Negative); Leukocyte Esterase Ur Negative LEU/UL (Negative); Mucus Urine Rare /lpf; Nitrate Urine Positive (Negative); Protein Urine 2+ mg/dL (Negative); Specific Grav Ur 1.015 (1.001-1.035); WBC Urine 21-30 /hpf
--- NOTE | 2020-10-08 15:17 | PC.NURSE ---
Spoke w/ Pt Daughter and POA on phone at this time to give update. Debbie [phone]
[2020-10-08] MEDS: SODIUM CHLORIDE 0.9% IV 1,000 ML 999 ML (15:35)
[2020-10-08] MEDS: DEXAMETHASONE SOD PHOS INJ 4 MG/ML VIAL 6 MG IV PUSH (15:44)
[2020-10-08 15:52] LABS: Fractional Inspired Oxygen 28 %; HCO3 ABG 17.5 mEq/l (22.0-26.0); Oxygen Content ABG 12.1 %vol (16.0-22.0); Oxyhemoglobin 94.7 % THb (90.0-100.0); PCO2 ABG 24.4 mmHg (35.0-45.0); PO2 ABG 82.9 mmHg (80.0-100.0); PO2 FiO2 Ratio Arterial Blood 2.96 %; pH ABG 7.474 (7.350-7.450)
[2020-10-08 15:53] LABS: Device NASAL CANNULA; Modified Allen's Test Pass; Site Drawn LEFT RADIAL
[2020-10-08 15:55] LABS: INR 1.1
[2020-10-08 15:56] LABS: Partial Thromboplastin Time 40.6 SECONDS (22.3-36.8)
--- NOTE | 2020-10-08 18:00 | PC.NURSE ---
spoke to dietary and ordered dinner tray for pt
--- NOTE | 2020-10-08 21:47 | ADMGEN ---
This patient, Duane Mayo, was admitted to IMU Room 214-01. Patient/family oriented to hospital policies and general routines including ID bracelet, bed and alarms, visiting hours, pain management, procedures, bathroom and other care routines, personal items, smoking policy, room service/diet, and visiting hours. Information on how to activate the Rapid Response Team has been discussed. Patient/Family are encouraged to report perceived risks to care and to ask questions if they do not understand what they are told or what they should do. arrived approx [id number] report from consuelo NULL
[2020-10-09] VITALS (14 sets, daily range): BP systolic 118–150; BP diastolic 78–92; PULSE 48–92; RESP 18–22; TEMP 36.2–36.8; O2SAT 90–95
--- NOTE | 2020-10-09 00:05 | PM.IMHP ---
H&P: HPI History of Present Illness Date/Time: 10/09/20 00:05 Chief Complaint: Weakness Narrative: Duane Mayo is a 75 year old male who had been admitted here on 09/20/2020 with the small-bowel obstruction dehydration and UTI. The patient has a history of urological cancer with urostomy the patient had complaint of abdominal cramping for last 2 weeks. An NG-tube was placed at that time. Was discharged on from here on 09/23/2020 with possible small-bowel obstruction dehydration urinary tract infection hyponatremia and hypo osmolarity. Surgery team had been consulted and IV fluids were given. The patient came in today with severe generalized weakness. He reports that he was tired and having difficulty walking. Patient stated that he was today with his daughter but it to the basement had to get a chair lift. Patient stated that he she is too weak. The patient had a history of lymphoma and bladder cancer in the past. He tested positive for COVID on 09/28/2020 was admitted to [facility] at times. Patient reports that his O2 saturations 88% on room air today. Patient's pulse ox was noted to be 96% while here in the was placed on 2 L per nasal cannula. Patient's H&H is 8.125.1. Sodium 128. Is felt that the patient might have post COVID bacterial pneumonia and a UTI he was started on Rocephin and azithromycin. He was started on Decadron but is believed to be outside the window for REMdesivir. He was given IV fluid And IV Tylenol. The patient is being admitted to inpatient status on the date of service of 10/08/2020. Review of Systems Review of Systems: All systems reviewed & are unremarkable except as noted in HPI and below Constitutional: Constitutional: Reports as per HPI and Reports no additional constitutional complaints Eyes: Eyes: Reports as per HPI and Reports no additional eye complaints ENT: Reports system reviewed and no additional complaints, except as documented and Reports Normal hearing present Cardiovascular: Cardiovascular: Reports no additional cardiovascular complaints Respiratory: Respiratory: Reports no additional respiratory complaints and Reports no additional respiratory complaints Gastrointestinal: Gastrointestinal: Reports as per HPI and Reports no additional gastrointestinal complaints Musculoskeletal: Musculoskeletal: Reports no additional musculoskeletal complaints Integumentary/Breasts: Skin/Breast: Reports system reviewed and no additional complaints, except as docu and Reports as per HPI Neurologic: Reports system reviewed and no additional complaints, except as documented, Reports as per HPI and Reports Normal hearing present Psychiatric: Psychiatric: Reports no additional psychiatric complaints and Reports as per HPI Endocrine: Endocrine: Reports no additional endocrine complaints Hematologic/Lymphatic: Hematologic/Lymphatic: Reports no additional hematologic/lymphatic complaints Allergic/Immunologic: Allergic/Immunologic: Reports no additional allergic/immunologic complaints PMFSH Past Medical History Medical History Abnormal bone scan of cervical spine CT suggest hemangioma bone scan suggest Paget's disease Abnormal bone scan of lumbar spine 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) Which has essentially resolved since chemotherapy CHF (congestive heart failure) Depression Essential hypertension H/O subarachnoid hemorrhage Hearing loss Hernia History of lymphoma Diagnosed in 2018 now in remission Hypertension Hyponatremia 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 Postoperative ileus after bladdder resection Rib fracture September 2019 SBO (small bowel obstruction) Tobacco use Surgical History Surgical History H/O total cystectomy (~08/2019) robotic assisted bladder resection History of bilateral cataract extraction History of
[2020-10-09] MEDS: SODIUM CHLORIDE 1 GM TABLET PO ×2 (08:10→17:19)
[2020-10-09] MEDS: DEXAMETHASONE SOD PHOS INJ 4 MG/ML VIAL 6 MG IV PUSH (08:10)
[2020-10-09] MEDS: CHOLECALCIFEROL 1,000 UNITS TABLET 2000 UNITS PO (08:10)
[2020-10-09] MEDS: THIAMINE HCL 100 MG TABLET PO (08:10)
[2020-10-09] MEDS: GABAPENTIN 100 MG CAPSULE PO ×3 (08:10→17:19)
[2020-10-09] MEDS: SACUBITRIL/VALSARTAN 24-26 MG TABLET 1 TAB PO ×2 (08:11→17:19)
[2020-10-09 10:27] LABS: Anion Gap 5 mmol/L (8-16); Blood Urea Nitrogen 21 mg/dL (9-20); Calcium 8.1 mg/dL (8.4-10.2); Carbon Dioxide 21 mmol/L (22-30); Chloride 101 mmol/L (98-107); Estimated CRCL calculation 68 ml/min; Estimated Glomerular Filt Rate > 60; Glucose 127 mg/dL (75-110); Potassium 4.3 mmol/L (3.4-5.0); Sodium 127 mmol/L (137-145)
--- NOTE | 2020-10-09 10:54 | PCPTNOTE ---
PT evaluation attempted this AM, patient states he does not need therapy and refusing future attempts as well, will D/C orders at this time. Please reorder if appropriate in the future.
--- NOTE | 2020-10-09 14:31 | PC.NURSE ---
This patient, Duane Mayo, was transferred to [facility] on 10/09/20 at 1430. Personal belongings sent with patient. Report given to TENNILLE Nixon. Appropriate documentation sent with patient.
--- NOTE | 2020-10-09 15:18 | PC.NURSE ---
Arrived to floor via bed 1445.
--- NOTE | 2020-10-09 15:37 | PM.IMPN ---
Progress Note: A&P Assessment and Plan (1) Pneumonia due to COVID-19 virus: Code(s): U07.1 - COVID-19; J12.89 - Other viral pneumonia Status: Acute Assessment and Plan: Patient was started on Decadron. However I felt like the patient was outside the window for REM demdesivir in it looks like the patient was saturating 94% while he was here. I did not not see any documented pulse ox readings under 95%. Therefore I do not feel like it is appropriate to start the antiviral. However the ER physician felt that this could be bacterial pneumonia and started the patient on a azithromycin and Rocephin. The patient tested positive for COVID-19 10 days ago. 10/09/20 15:37 Patient is 75-year-old male with history of lymphoma and bladder cancer he was recently admitted to the hospital with small bowel obstruction and discharged home, patient was positive for COVID-19 and was admitted [facility] and was treated and discharged home, patient presented emergency department on 10/08 with complaint of being tired fatigue was unable to get up from sitting position and needed significant help. at home is O2 saturation was 88% at RA, in the ER patient was placed on 2 L there was a concern the patient may have a commit pneumonia and started the patient on Rocephin azithromycin is also concern the patient has UTI, patient is also being treated for COVID-19 with dexamethasone and patient is outside the window for the treatment of Remdesivir, today patient states is feeling little better not as tired as when he arrived, will continue to monitor patient will have a PT OT evaluate the patient, repeat chest x-ray and follow-up on urine culture further recommendation to follow (2) Acute respiratory failure with hypoxia: Code(s): J96.01 - Acute respiratory failure with hypoxia Status: Acute Assessment and Plan: The patient was placed on 2 L per nasal cannula. (3) Acute dehydration: Code(s): E86.0 - Dehydration Status: Acute Assessment and Plan: Patient has chronic low sodium. Could be from Entresto and his congestive heart failure (4) Urinary tract infection: Code(s): N39.0 - Urinary tract infection, site not specified Status: Acute Assessment and Plan: Patient was started on Rocephin blood and urine cultures are pending (5) Depression: Qualifiers: Depression Type: major depressive disorder Major depression recurrence: unspecified whether recurrent Active/Remission status: remission status unspecified Qualified Code(s): F32.9 - Major depressive disorder, single episode, unspecified Code(s): F32.9 - Major depressive disorder, single episode, unspecified Status: Acute (6) CHF (congestive heart failure): Qualifiers: Heart failure type: systolic Heart failure chronicity: chronic Qualified Code(s): I50.22 - Chronic systolic (congestive) heart failure Code(s): I50.9 - Heart failure, unspecified Status: Acute Assessment and Plan: Continue with Entresto but monitor sodium and Coreg (7) History of bladder cancer: Code(s): Z85.51 - Personal history of malignant neoplasm of bladder Status: Acute (8) Hypertension: Qualifiers: Hypertension type: essential hypertension Qualified Code(s): I10 - Essential (primary) hypertension Code(s): I10 - Essential (primary) hypertension Status: Chronic Assessment and Plan: Patient is on the soft side. (9) Chemotherapy-induced peripheral neuropathy: Onset Date: Unknown Code(s): G62.0 - Drug-induced polyneuropathy; T45.1X5A - Adverse effect of antineoplastic and immunosuppressive drugs, initial encounter Status: Chronic Assessment and Plan: Continue gabapentin (10) Hyponatremia: Code(s): E87.1 - Hypo-osmolality and hyponatremia Status: Acute Assessment and Plan: Chronic Subjective Date/time seen: 10/09/20
[2020-10-09] MEDS: carvediloL 25 MG TABLET PO (17:19)
[2020-10-10] VITALS (7 sets, daily range): BP systolic 140–148; BP diastolic 88–96; PULSE 65–77; RESP 18–20; TEMP 36.1–36.9; O2SAT 90–98
[2020-10-10 06:30] LABS: Hematocrit 24.3 % (42.0-52.0); Hemoglobin 8.2 g/dL (14.0-18.0); Immature Granulocyte Absolute 0.09 K/mm3 (0.00-0.031); Immature Granulocyte Percent A 0.9 % (0-0.5); Lymphocytes Absolute Auto 0.44 K/mm3 (0.9-3.2); Lymphocytes Percent Auto 4.4 % (18.3-44.2); Mean Corpuscular HGB Conc 33.7 g/dl (32-36); Mean Corpuscular Hemoglobin 26.7 pg (26-34); Mean Corpuscular Volume 79.2 fl (80-100); Monocytes Absolute Auto 0.4 K/mm3 (0.1-0.6); Monocytes Percent Auto 3.8 % (2.6-8.5); Neutrophils Absolute Auto 9.1 K/mm3 (1.3-6.7); Neutrophils Percent Auto 90.9 % (45.5-73.1); Platelet Count Result 333 k/mm3 (150-375); Red Blood Count 3.07 M/mm3 (4.6-6.20); Red Cell Distribution Width 17.3 % (11.5-14.5)
[2020-10-10 06:43] LABS: Alanine Aminotransferase 43 U/L (4-50); Albumin Level 2.5 g/dL (3.5-5.1); Alkaline Phosphatase 157 U/L (38-126); Anion Gap 6 mmol/L (8-16); Aspartate Amino Transferase 95 U/L (17-59); Bilirubin,Total 0.3 mg/dL (0.2-1.3); Blood Urea Nitrogen 22 mg/dL (9-20); Carbon Dioxide 20 mmol/L (22-30); Chloride 101 mmol/L (98-107); Estimated CRCL calculation 70 ml/min; Estimated Glomerular Filt Rate > 60; Glucose 114 mg/dL (75-110); Magnesium 1.9 mg/dL (1.6-2.3); Potassium 4.6 mmol/L (3.4-5.0); Sodium 127 mmol/L (137-145)
[2020-10-10] MEDS: DEXAMETHASONE SOD PHOS INJ 4 MG/ML VIAL 6 MG IV PUSH (08:16)
[2020-10-10] MEDS: carvediloL 25 MG TABLET PO (08:17)
[2020-10-10] MEDS: THIAMINE HCL 100 MG TABLET PO (08:17)
[2020-10-10] MEDS: SODIUM CHLORIDE 1 GM TABLET PO (08:17)
[2020-10-10] MEDS: GABAPENTIN 100 MG CAPSULE PO ×2 (08:17→12:53)
[2020-10-10] MEDS: CHOLECALCIFEROL 1,000 UNITS TABLET 2000 UNITS PO (08:17)
[2020-10-10] MEDS: SACUBITRIL/VALSARTAN 24-26 MG TABLET 1 TAB PO (08:17)
[2020-10-10 09:20] LABS: Burr Cells 2+ (NORMAL); Ovalocytes 1+ (NORMAL); Platelet Estimate Adequate (Adequate); Poikilocytosis 3+ (NORMAL)
--- NOTE | 2020-10-10 13:50 | PM.IMPN ---
Progress Note: A&P Assessment and Plan (1) Pneumonia due to COVID-19 virus: Code(s): U07.1 - COVID-19; J12.89 - Other viral pneumonia Status: Acute Assessment and Plan: Patient was started on Decadron. However I felt like the patient was outside the window for REM demdesivir in it looks like the patient was saturating 94% while he was here. I did not not see any documented pulse ox readings under 95%. Therefore I do not feel like it is appropriate to start the antiviral. However the ER physician felt that this could be bacterial pneumonia and started the patient on a azithromycin and Rocephin. The patient tested positive for COVID-19 10 days ago. 10/10/20 13:50 Patient is 75-year-old male with history of lymphoma and bladder cancer he was recently admitted to the hospital with small bowel obstruction and discharged home, patient was positive for COVID-19 and was admitted [facility] and was treated and discharged home, patient presented emergency department on 10/08 with complaint of being tired fatigue was unable to get up from sitting position and needed significant help. at home is O2 saturation was 88% at RA, in the ER patient was placed on 2 L there was a concern the patient may have a commit pneumonia and started the patient on Rocephin azithromycin is also concern the patient has UTI, patient is also being treated for COVID-19 with dexamethasone and patient is outside the window for the treatment of Remdesivir, today patient is more tired he did not participate in PT yesterday and does not want to do any PT today, is very weak has difficulty getting out of the bed, urine and blood culture so far no growth, patient with bladder cancer and lymphoma now COVID, he has a very slow recovery I discussed with the patient's daughter, his POA, will consider hospice and further recommendation to follow. (2) Acute respiratory failure with hypoxia: Code(s): J96.01 - Acute respiratory failure with hypoxia Status: Acute Assessment and Plan: The patient was placed on 2 L per nasal cannula. (3) Acute dehydration: Code(s): E86.0 - Dehydration Status: Acute Assessment and Plan: Patient has chronic low sodium. Could be from Entresto and his congestive heart failure (4) Urinary tract infection: Code(s): N39.0 - Urinary tract infection, site not specified Status: Acute Assessment and Plan: Patient was started on Rocephin blood and urine cultures are pending (5) Depression: Qualifiers: Active/Remission status: remission status unspecified Depression Type: major depressive disorder Major depression recurrence: unspecified whether recurrent Qualified Code(s): F32.9 - Major depressive disorder, single episode, unspecified Code(s): F32.9 - Major depressive disorder, single episode, unspecified Status: Acute (6) CHF (congestive heart failure): Qualifiers: Heart failure chronicity: chronic Heart failure type: systolic Qualified Code(s): I50.22 - Chronic systolic (congestive) heart failure Code(s): I50.9 - Heart failure, unspecified Status: Acute Assessment and Plan: Continue with Entresto but monitor sodium and Coreg (7) History of bladder cancer: Code(s): Z85.51 - Personal history of malignant neoplasm of bladder Status: Acute (8) Hypertension: Qualifiers: Hypertension type: essential hypertension Qualified Code(s): I10 - Essential (primary) hypertension Code(s): I10 - Essential (primary) hypertension Status: Chronic Assessment and Plan: Patient is on the soft side. (9) Chemotherapy-induced peripheral neuropathy: Onset Date: Unknown Code(s): G62.0 - Drug-induced polyneuropathy; T45.1X5A - Adverse effect of antineoplastic and immunosuppressive drugs, initial encounter Status: Chronic Assessment and Plan: Continue gabapentin (10) Hyponatremia:
--- NOTE | 2020-10-10 15:33 | PM.DS ---
DS: Admitting Diagnosis Admitting Diagnosis Admitting Diagnosis: weakness DS: Discharge Diagnosis Discharge Diagnosis (1) Pneumonia due to COVID-19 virus: Code(s): U07.1 - COVID-19; J12.89 - Other viral pneumonia Status: Acute Assessment and Plan: Patient was started on Decadron. However I felt like the patient was outside the window for REM demdesivir in it looks like the patient was saturating 94% while he was here. I did not not see any documented pulse ox readings under 95%. Therefore I do not feel like it is appropriate to start the antiviral. However the ER physician felt that this could be bacterial pneumonia and started the patient on a azithromycin and Rocephin. The patient tested positive for COVID-19 10 days ago. 10/10/20 13:50 Patient is 75-year-old male with history of lymphoma and bladder cancer he was recently admitted to the hospital with small bowel obstruction and discharged home, patient was positive for COVID-19 and was admitted [facility] and was treated and discharged home, patient presented emergency department on 10/08 with complaint of being tired fatigue was unable to get up from sitting position and needed significant help. at home is O2 saturation was 88% at RA, in the ER patient was placed on 2 L there was a concern the patient may have a commit pneumonia and started the patient on Rocephin azithromycin is also concern the patient has UTI, patient is also being treated for COVID-19 with dexamethasone and patient is outside the window for the treatment of Remdesivir, today patient is more tired he did not participate in PT yesterday and does not want to do any PT today, is very weak has difficulty getting out of the bed, urine and blood culture so far no growth, patient with bladder cancer and lymphoma now COVID, he has a very slow recovery I discussed with the patient's daughter, his POA, will consider hospice and further recommendation to follow. (2) Acute respiratory failure with hypoxia: Code(s): J96.01 - Acute respiratory failure with hypoxia Status: Acute Assessment and Plan: The patient was placed on 2 L per nasal cannula. (3) Acute dehydration: Code(s): E86.0 - Dehydration Status: Acute Assessment and Plan: Patient has chronic low sodium. Could be from Entresto and his congestive heart failure (4) Urinary tract infection: Code(s): N39.0 - Urinary tract infection, site not specified Status: Acute Assessment and Plan: Patient was started on Rocephin blood and urine cultures are pending (5) Depression: Qualifiers: Depression Type: major depressive disorder Major depression recurrence: unspecified whether recurrent Active/Remission status: remission status unspecified Qualified Code(s): F32.9 - Major depressive disorder, single episode, unspecified Code(s): F32.9 - Major depressive disorder, single episode, unspecified Status: Acute (6) CHF (congestive heart failure): Qualifiers: Heart failure type: systolic Heart failure chronicity: chronic Qualified Code(s): I50.22 - Chronic systolic (congestive) heart failure Code(s): I50.9 - Heart failure, unspecified Status: Acute Assessment and Plan: Continue with Entresto but monitor sodium and Coreg (7) History of bladder cancer: Code(s): Z85.51 - Personal history of malignant neoplasm of bladder Status: Acute (8) Hypertension: Qualifiers: Hypertension type: essential hypertension Qualified Code(s): I10 - Essential (primary) hypertension Code(s): I10 - Essential (primary) hypertension Status: Chronic Assessment and Plan: Patient is on the soft side. (9) Chemotherapy-induced peripheral neuropathy: Onset Date: Unknown Code(s): G62.0 - Drug-induced polyneuropathy; T45.1X5A - Adverse effect of antineoplastic and immunosuppressive drugs, initial encounter Stat
== END 2020-10-10 16:40 | disposition home health service (06) | DRG 177 ==
LOC: ANHED 16:09 → ANHIMU 21:10 → ANH3MEDSUR 10-10 01:45 → ANHIMU 10-12 10:27
PROVIDERS: Nurse Practitioner; Admitting Provider Internal Medicine; Emergency Provider Emergency Medicine; PCP Internal Medicine; Visit Provider Family Medicine
DX: U07.1 COVID-19 (principal); J12.89 Other viral pneumonia; J96.01 Acute respiratory failure with hypoxia; J15.9 Unspecified bacterial pneumonia; I50.22 Chronic systolic (congestive) heart failure; E87.1 Hypo-osmolality and hyponatremia; N39.0 Urinary tract infection, site not specified; I11.0 Hypertensive heart disease with heart failure; I95.9 Hypotension, unspecified; F32.9 Major depressive disorder, single episode, unspecified; E86.0 Dehydration; G62.0 Drug-induced polyneuropathy; T45.1X5A Adverse effect of antineoplastic and immunosuppressive drugs, initial encounter; F17.210 Nicotine dependence, cigarettes, uncomplicated; Z66 Do not resuscitate; Z85.51 Personal history of malignant neoplasm of bladder; Z85.72 Personal history of non-Hodgkin lymphomas; Z98.42 Cataract extraction status, left eye; Z98.41 Cataract extraction status, right eye
CPT/HCPCS: 36415; 36600; 71045; 80048; 80053; 81001; 82728; 82805; 83605; 83735; 84443; 85025; 85610; 85730; 87040; 87086; 87088; 93005; 96374; 96375; 99291; A9270; J0456; J0696; J1100; J7030; J7120